=== PATIENT | male | born 1950 | race Caucasian/White ===

== ENCOUNTER 2020-03-15 00:13 | Outpatient (CLI) | payer MEDICARE, BC, SELFPAY ==
[2020-03-15 18:58] LABS: SARS-CoV-2 RNA PCR Negative
== END 2020-03-15 00:14 | disposition home or self-care (01) ==
LOC: ANHCOVIDDT 00:13
PROVIDERS: PCP Internal Medicine; Visit Provider Internal Medicine Cardiovascular Disease
DX: Z01.812 Encounter for preprocedural laboratory examination (principal); Z20.828 Contact with and (suspected) exposure to other viral communicable diseases
CPT/HCPCS: 87635; C9803; U0003

== ENCOUNTER 2020-03-17 05:33 | Day surgery (SDC) | payer MEDICARE, BC, SELFPAY ==
[2020-03-16 14:25] VITALS: BMI 29.9
[2020-03-17] VITALS (9 sets, daily range): BP systolic 111–140; BP diastolic 57–79; PULSE 55–71; RESP 14–15; O2SAT 94–100
[2020-03-17 07:52] LABS: Basophils Absolute Auto 0.1 K/mm3 (0.0-0.1); Basophils Percent Auto 0.8 % (0.2-1.2); Eosinophils Absolute Auto 0.5 K/mm3 (0-0.3); Eosinophils Percent Auto 6.7 % (0-4.4); Hematocrit 41.4 % (42.0-52.0); Hemoglobin 13.6 g/dL (14.0-18.0); Immature Granulocyte Absolute 0.02 K/mm3 (0.00-0.031); Immature Granulocyte Percent A 0.3 % (0-0.5); Lymphocytes Absolute Auto 2.37 K/mm3 (0.9-3.2); Lymphocytes Percent Auto 30.7 % (18.3-44.2); Mean Corpuscular HGB Conc 32.9 g/dl (32-36); Mean Corpuscular Hemoglobin 33.6 pg (26-34); Mean Corpuscular Volume 102.2 fl (80-100); Mean Platelet Volume 9.4 fl (7.4-10.4); Monocytes Absolute Auto 0.8 K/mm3 (0.1-0.6); Monocytes Percent Auto 10.9 % (2.6-8.5); Neutrophils Absolute Auto 3.9 K/mm3 (1.3-6.7); Neutrophils Percent Auto 50.6 % (45.5-73.1); Platelet Count Result 251 k/mm3 (150-375); Red Blood Count 4.05 M/mm3 (4.6-6.20); Red Cell Distribution Width 13.7 % (11.5-14.5); White Blood Count 7.7 K/mm3 (4.5-10.0)
[2020-03-17 08:02] LABS: Prothrombin Time 12.8 Seconds (11.1-14.7)
[2020-03-17 08:11] LABS: Blood Urea Nitrogen 20 mg/dL (9-20); Calcium 9.1 mg/dL (8.4-10.2); Carbon Dioxide 29 mmol/L (22-30); Chloride 102 mmol/L (98-107); Estimated CRCL calculation 60 ml/min; Estimated Glomerular Filt Rate > 60; Glucose 96 mg/dL (75-110); Potassium 4.1 mmol/L (3.4-5.0); Sodium 137 mmol/L (137-145)
--- NOTE | 2020-03-17 08:59 | WPDHPUPDATE1 ---
History and Physical Update Update Date/Time: 03/17/20 08:59 History and Physical has been reviewed, including an updated exam of the patient. There are NO changes in the patient's condition. Risks, benefits, and alternatives have been discussed and questions answered. Patient agrees to proceed with procedure.
--- NOTE | 2020-03-17 08:59 | WPDMODSED ---
Moderate Sedation Note-Pt Data Patient Data Allergies Allergy/AdvReac Type Severity Reaction Status Date / Time povidone-iodine Allergy Blister Verified 03/16/20 14:15 [From Betadine] soap [From Betadine] Allergy Blister Verified 03/16/20 14:15 Home Medications Medication Instructions Recorded Confirmed Type Pradaxa 150 mg PO BID 10/14/19 03/17/20 History amiodarone 200 mg PO DAILY 10/14/19 03/17/20 History aspirin 81 mg PO DAILY 10/14/19 03/17/20 History calcium carb and citrate-vitD3 1 tablet PO DAILY 10/14/19 03/17/20 History [Citracal-D3 Slow Release] cyanocobalamin (vitamin B-12) 500 mcg PO DAILY 10/14/19 03/17/20 History ferrous sulfate 325 mg PO BID 10/14/19 03/17/20 History finasteride 5 mg PO DAILY 10/14/19 03/17/20 History hydrocodone-acetaminophen [[place]] 1 tablet PO Q6H PRN 10/14/19 03/16/20 History metoprolol tartrate 25 mg PO Q12H 10/14/19 03/17/20 History multivitamin 1 tablet PO DAILY 10/14/19 03/17/20 History nystatin 1 applic TOPICAL PRN 10/14/19 03/17/20 History paroxetine HCl [Paxil] 40 mg PO QAM 10/14/19 03/17/20 History rosuvastatin [Crestor] 20 mg PO DAILY 10/14/19 03/17/20 History tamsulosin [Flomax] 0.4 mg PO BID 10/14/19 03/17/20 History midodrine 10 mg PO TID 03/17/20 03/17/20 History Current Medications: Active Medications Sodium Chloride (Normal Saline Iv) 500 mls @ 100 mls/hr IV CONT .Q5H ALE Sedation/Anesthesia: No previous sedation/anesthesia problems (including family history). [facility] Surgical History Surgical History (Updated 10/15/19 @ 09:25 by Italia Mclaughlin MD) Status post ablation of atrial fibrillation Social History Social History (Updated 10/15/19 @ 09:25 by Italia Mclaughlin MD) Social History: No smoking or drinking alcohol Smoking status: Never smoker Gender identity (if verbalized by the patient): Male Mod Sed Physical Exam Physical Exam Pre Procedural Exam: Normal: Appearance, Eyes, Ears, Nose, Neck, Throat, Airway, Lungs, Heart Size, Heart Rate, Heart Rhythm, Neuro Exam, Abdomen, Liver, Kidneys, Spleen, Breasts, Genitalia, Extremities and Skin Hours since solid foods: 8 Hours since liquid intake: 8 Internal Medicine - PN: Obj Da Vital Signs Vital Signs: Vital Signs - 24 hr 03/17/20 07:42 Pulse Rate 55 L Respiratory Rate 14 Blood Pressure 140/70 Pulse Oximetry 94 Meds/Results Medications: Active Medications Generic Name Dose Route Start Last Admin Trade Name Freq PRN Reason Stop Dose Admin Sodium Chloride 500 mls @ 100 mls/hr 03/17/20 06:00 Normal Saline Iv IV CONT .Q5H ALE Labs CBC & Chem 7: 03/17/20 07:45 03/17/20 07:45 Labs: Laboratory Results - last 24 hr 03/17/20 03/17/20 03/17/20 07:45 07:45 07:45 WBC 7.7 RBC 4.05 L Hgb 13.6 L Hct 41.4 L MCV 102.2 H MCH 33.6 MCHC 32.9 RDW 13.7 Plt Count 251 MPV 9.4 Immature Gran % (Auto) 0.3 Neut % (Auto) 50.6 Lymph % (Auto) 30.7 [place] % (Auto) 10.9 H Eos % (Auto) 6.7 H Baso % (Auto) 0.8 Lymph # (Auto) 2.37 [place] # (Auto) 0.8 H Eos # (Auto) 0.5 H Baso # (Auto) 0.1 Abs Immat Gran (auto) 0.02 Absolute Neuts (auto) 3.9 Absolute Nucleated RBC 0.0 Nucleated RBC % 0.0 PT 12.8 INR 1.0 Sodium 137 Potassium 4.1 Chloride 102 Carbon Dioxide 29 BUN 20 Creatinine 1.10 Estim Creat Clear Calc 60 Estimated GFR > 60 Glucose 96 Calcium 9.1 ASA Classification/Sedation ASA Classification/Sedation ASA Class: I Emergent: No Risks: Risks, benefits and alternatives explained and patient/family accepted plan for sedation. Patient re-evaluated immediately prior to sedation.
--- NOTE | 2020-03-17 09:00 | WPDCARDPROC ---
Cardiac Cath Procedure Note Date of procedure:: 03/17/20 Performing physician:: Italia Mclaughlin MD Date of service: 03/17/2020 Indication:: Dyspnea on exertion. abn stress test Brief clinical history:: Is 68 patient history paroxysmal atrial fibrillation, history of LAD stent and RCA stent 2005 was evaluated for worseningdyspnea on exertion. stress test shows inferior and inferolateral ischemia and ejection fraction 45% TID 1.24 Procedure Procedure performed:: 1-Moderate sedation that started at 0906 am and ended at 0929 am using 3mg of Versed and 75mcg fentanyl. The registered nurse was ciara price 2-Selective left and right coronary angiogram. 3-Left heart catheterization with measurement of LVEDP and measurement of gradient across aortic valve. 4-Right common femoral arterial angiogram. 5-Deployment of 6 [place] Angio-Seal. Sedation/Medication given:: Moderate sedation. Access site:: Right common femoral artery. Estimated blood loss:: 10cc Procedure note:: After informed consent patient was brought in to [facility] with the was draped and prepped in usual manner. Moderate sedation was given and the right groin was infiltrated using 1% lidocaine. Five [place] sheath was obtained using micropuncture needle and the modified Seldinger technique. Selective left coronary angiogram was done using JL4 catheter with the tip of the catheter placed in the left main coronary artery. Selective right coronary angiogram was done using JR4 catheter with the tip of the catheter placed to the right coronary artery. After that 5 [place] pigtail catheter was advanced across the aortic valve into the left ventricle with measurement of LVEDP and measurement of gradient across aortic valve. Right common femoral arterial angiogram was done. Findings:: 1- left coronary artery is a large artery that divides into large LAD, large circumflex artery. Distal Left main has 20% stenosis with calcification. 2- left anterior descending artery is a large artery that runs and wraps around the apex. has a patent stent proximally without significant AV stenosis and then after the diagonal branch there is minimal irregularities about 20%. Diagonal branch is small to medium in size and looks unremarkable. 3- left circumflex artery is a large artery and with minimal irregularities. Right after takes off from the left main, the left circumflex artery arises to a large OM1 branch that looks unremarkable. 4- right coronary artery is large artery and dominant. has patent stent proximally with minimal InStent restenosis. after that the right coronary artery has diffuse calcification throughout the blood vessel. distally gives rise to large PDA and right posterolateral branch that both looked unremarkable 5- LVEDP was 10 mm Hgand no gradient across aortic valve. 6- opening arterial pressure was 114/80and closing pressure was 120/70. 7- right femoral artery angiogram shows no significant disease in the right common femoral artery. Conclusion:: patent stents proximal LAD and proximal right coronary artery. distal left main 20%. Assessment and Plan Additional Plan continue risk factor modification for CAD.
--- NOTE | 2020-03-17 11:54 | SUR.PHASEII ---
1130-pt up to the restroom after two hours of bedrest. Groin soft and non-tender, no evidence of bleeding or hematoma noted. Strong right pedal pulse noted. Both groin and pulse checked before and after rising. No distress noted. Will continue to monitor.
--- NOTE | 2020-03-17 11:55 | SUR.PHASEII ---
0930-pt into [facility] after CCL. No distress noted. AOx4. Groin soft and non-tender, no evidence of bleeding or hematoma noted. Strong right pedal pulse noted. Will continue to monitor.
--- NOTE | 2020-03-17 13:01 | SUR.PHASEII ---
1235-pt given D/C orders and instructions. Questions answered and verbalized understanding. AOx4. PIV removed intact. Groin soft and non-tender, no evidence of bleeding or hematoma noted. Strong right pedal pulse noted. Taken via wheelchair to waiting vehicle. No distress noted or verbalized at time of departure.
== END 2020-03-17 12:34 | disposition home or self-care (01) ==
PROVIDERS: PCP Internal Medicine; Visit Provider Internal Medicine Cardiovascular Disease
PROC: 4A023N7 Measurement of Cardiac Sampling and Pressure, Left Heart, Percutaneous Approach (ICD-10-PCS; CPT 93452; principal; 2020-03-17 08:30)
DX: I25.10 Atherosclerotic heart disease of native coronary artery without angina pectoris (principal); T82.855A Stenosis of coronary artery stent, initial encounter; X58.XXXA Exposure to other specified factors, initial encounter
CPT/HCPCS: 36415; 80048; 85025; 85610; 93458; C1760; C1887; C1894; G0269; J1644; J2250; J3010; J7040

== ENCOUNTER 2020-04-22 13:25 | Outpatient (CLI) | payer MEDICARE, BC, SELFPAY ==
--- NOTE | 2020-04-25 09:48 | WPDPFTINT ---
PFT Interpretation PFT Interpretation: DOS: 04/22/2020 REQUESTING: Dr. Italia Mclaughlin REASON FOR TESTING: Shortness of breath PULMONARY FUNCTION TESTS Results are reproducible and reliable. Spirometry: FEV1 96%, FVC 103%, normal. FEV1% is decreased at 62%. DLJ36-46% is decreased at 53%. No bronchodilator was given. Lung volumes: TLC increased 131% consistent with mild hyperinflation. RV increased 162% consistent with severe air trapping. Airway resistance 138%, increased. Diffusion: DLCO 98%, normal. Flow volume loop: Coving of the expiratory limb consistent with airflow obstruction. IMPRESSION: Mild obstructive ventilatory impairment which is marked in the small airways, mild hyperinflation and severe air trapping. Normal diffusion. No bronchodilator was given. This pattern suggests COPD-asthma overlap. Patricia Antunez MD
== END 2020-04-22 13:26 | disposition home or self-care (01) ==
PROVIDERS: PCP Internal Medicine; Visit Provider Internal Medicine Cardiovascular Disease
DX: R06.02 Shortness of breath (principal); R94.2 Abnormal results of pulmonary function studies
CPT/HCPCS: 94060; 94726; 94729

== ENCOUNTER 2020-09-19 02:25 | Outpatient (CLI) | payer MEDICARE, BC, SELFPAY ==
[2020-09-19 18:35] LABS: SARS-CoV-2 RNA PCR Negative
== END 2020-09-19 02:26 | disposition home or self-care (01) ==
LOC: ANHCOVIDDT 02:26
PROVIDERS: PCP Internal Medicine; Visit Provider Internal Medicine Cardiovascular Disease
DX: Z01.812 Encounter for preprocedural laboratory examination (principal); Z20.828 Contact with and (suspected) exposure to other viral communicable diseases
CPT/HCPCS: 87635; C9803; U0003

== ENCOUNTER 2020-09-22 05:24 | Day surgery (SDC) | payer MEDICARE, BC, SELFPAY ==
[2020-09-22] VITALS (9 sets, daily range): BP systolic 100–119; BP diastolic 64–78; PULSE 67–74; RESP 12–20; TEMP 36.6–36.7; O2SAT 96–100; BMI 29.0
--- NOTE | 2020-09-22 | ECG_ITS ---
Measurements Intervals [place] Rate: 68 P: [place]: 0 QRS: 61 QRSD: 109 T: 36 QT: 438 QTc: 468 Interpretive Statements ATRIAL FLUTTER/TACHYCARDIA ABNORMAL ECG Electronically Signed On 09-22-2020 11:11:05 [employer] WORKER by Moreno PENA
[2020-09-22 10:17] LABS: Anion Gap 2 mmol/L (8-16); Blood Urea Nitrogen 19 mg/dL (9-20); Calcium 8.9 mg/dL (8.4-10.2); Carbon Dioxide 32 mmol/L (22-30); Chloride 102 mmol/L (98-107); Estimated CRCL calculation 65 ml/min; Estimated Glomerular Filt Rate > 60; Glucose 98 mg/dL (75-110); Magnesium 1.9 mg/dL (1.6-2.3); Potassium 4.1 mmol/L (3.4-5.0); Sodium 136 mmol/L (137-145)
--- NOTE | 2020-09-22 11:01 | ECG_ITS ---
Measurements Intervals [place] Rate: 68 P: 76 NC: 160 QRS: 57 QRSD: 106 T: 35 QT: 455 QTc: 484 Interpretive Statements SINUS RHYTHM PROLONGED QT INTERVAL ABNORMAL ECG Electronically Signed On 09-22-2020 14:02:51 [employer] by Moreno Pitts D.O.
--- NOTE | 2020-09-22 11:50 | WPDHPUPDATE1 ---
History and Physical Update Update Date/Time: 09/22/20 11:50 History and Physical has been reviewed, including an updated exam of the patient. There are NO changes in the patient's condition. Risks, benefits, and alternatives have been discussed and questions answered. Patient agrees to proceed with procedure.
--- NOTE | 2020-09-22 11:51 | WPDCARDVER ---
Cardioversion Cardioversion Date of procedure: 09/22/20 Procedure: date of service 09/22/2020 cardioversion of atrial fibrillation Pre-op diagnosis: symptomatic atrial fibrillation Post-op diagnosis: other ( converted to sinus rhythm) Indications: patient experiences shortness of breath and fatigue with atrial fibrillation Description of procedure: after informed consent , the cardioversion paddles were applied anteroposteriorly. the moderate sedation given and then after that synchronized electric cardioversion using 200 joules delivered successfully converting to sinus rhythm. Sedation: Moderate sedation that started at 10:48 a.m. and ended at 10:54 a.m. total duration 6 minutes using 4 mg of Versed and 50 mcg of fentanyl. The Registered nurse was gilmer guajardo Findings: atrial fibrillation converted to sinus rhythm Conclusion: successful cardioversion. continue amiodarone and Pradaxa
--- NOTE | 2020-09-22 12:21 | SUR.PHASEII ---
1225 Reviewed D/C instructions with patient, questions answered, he verbalizes understanding. IV D/C'd, cath intact, pressure applied. Pts updated via phone call. Pt transported via wheelchair to [facility] where his drove him home in a private vehicle.
--- NOTE | 2020-11-03 11:19 | PM.IMHP ---
H&P: HPI History of Present Illness Date/Time: date of service 09/22/2020 Chief Complaint: shortness of breath on exertion Narrative: Mayo Wyatt is a 70 year old male with past medical history of coronary artery disease and stents, paroxysmal atrial fibrillation status post ablation, C diff, who had COVID infection in August 2020 and went into atrial fibrillation. He does not tolerate atrial fibrillation and has been experiencing shortness of breath, fatigability. Denies chest pain, dizziness, syncope, lower limb edema. He was started on amiodarone and was set up to undergo cardioversion for symptomatic management. Review of Systems Review of Systems: All systems reviewed & are unremarkable except as noted in HPI and below Constitutional: Constitutional: Denies chills, Reports fatigue, Denies fever(s), Denies headache(s) and Denies snoring Eyes: Eyes: Denies eye discharge and Denies loss of vision ENT: Denies dizziness, Denies headache(s), Denies nasal discharge and Denies sore throat Cardiovascular: Cardiovascular: Reports as per HPI, Denies chest pain, Denies syncope, Denies rapid heart rate, Denies leg edema, Reports dyspnea, Reports dyspnea on exertion, Denies orthopnea and Denies paroxysmal nocturnal dyspnea Respiratory: Respiratory: Denies chest congestion, Denies cough, Reports dyspnea, Reports dyspnea on exertion, Denies snoring and Denies wheezing Gastrointestinal: Gastrointestinal: Denies abdominal pain, Denies diarrhea, Denies nausea and Denies vomiting Genitourinary: Genitourinary: Denies hematuria, Denies dysuria, Denies flank pain and Denies urinary frequency Musculoskeletal: Musculoskeletal: Denies myalgias, Denies arthralgias and Denies joint swelling Neurologic: Denies Abnormal speech present, Denies dizziness, Denies syncope, Denies headache(s), Denies focal weakness and Denies loss of vision Psychiatric: Psychiatric: Denies anxiety and Denies depression Endocrine: Endocrine: Denies cold intolerance, Denies fatigue and Denies heat intolerance Hematologic/Lymphatic: Hematologic/Lymphatic: Denies easy bleeding and Denies easy bruising Allergic/Immunologic: Allergic/Immunologic: Denies urticaria and Denies wheezing PMFSH Past Medical History Medical History Atrial fibrillation C. difficile colitis Surgical History Surgical History Status post ablation of atrial fibrillation Social History Social History Social History: No smoking or drinking alcohol Smoking status: Never smoker Gender identity (if verbalized by the patient): Male Meds Home Medications and Allergies Home Medications Medication Instructions Recorded Confirmed Type Pradaxa 150 mg PO BID 10/14/19 09/22/20 History amiodarone 200 mg PO DAILY 10/14/19 09/22/20 History aspirin 81 mg PO DAILY 10/14/19 09/22/20 History calcium carb and citrate-vitD3 1 tablet PO DAILY 10/14/19 09/22/20 History [Citracal-D3 Slow Release] cyanocobalamin (vitamin B-12) 500 mcg PO DAILY 10/14/19 09/22/20 History ferrous sulfate 325 mg PO BID 10/14/19 09/22/20 History finasteride 5 mg PO DAILY 10/14/19 09/22/20 History hydrocodone-acetaminophen [[place]] 1 tablet PO Q6H PRN 10/14/19 09/22/20 History metoprolol tartrate 25 mg PO BID 10/14/19 09/22/20 History multivitamin 1 tablet PO DAILY 10/14/19 09/22/20 History paroxetine HCl [Paxil] 40 mg PO QAM 10/14/19 09/22/20 History rosuvastatin [Crestor] 20 mg PO DAILY 10/14/19 09/22/20 History tamsulosin [Flomax] 0.4 mg PO BID 10/14/19 09/22/20 History midodrine 10 mg PO TID 03/17/20 09/22/20 History Allergies Allergy/AdvReac Type Severity Reaction Status Date / Time levofloxacin Allergy Rash Verified 09/22/20 10:02 povidone-iodine Allergy Blister Verified 09/22/20 10:02 [From Betadine] soap [From Betadine] Allergy Blister Verif
== END 2020-09-22 12:29 | disposition home or self-care (01) ==
PROVIDERS: PCP Internal Medicine; Visit Provider Internal Medicine Cardiovascular Disease
PROC: 5A2204Z Restoration of Cardiac Rhythm, Single (ICD-10-PCS; principal; 2020-09-22 10:00)
DX: I48.91 Unspecified atrial fibrillation (principal)
CPT/HCPCS: 36415; 80048; 83735; 92960; J2250; J3010; J7040

== ENCOUNTER 2021-06-21 10:08 | Outpatient (CLI) | payer MEDICARE, BC, SELFPAY ==
--- NOTE | 2021-06-21 12:28 | WPDPFTINT ---
PFT Procedure Performed PFT Procedure Performed Plethysmography (Lung Vol) Diffusing Cap (DLCO) Flow Vol Loop Spirometry w/o Bronchodil PFT Interpretation This is a pulmonary function test with spirometry, plethysmography and diffusing capacity. The test was performed and results interpreted in accordance with the 2019 and 2005 ATS/ERS Task Force guidelines respectively using the Global Lung Function Initiative-2012 reference equations. Patient demonstrated good effort and cooperation. Reproducibility criteria were met. The quality of the spirometry maneuver was Grade A. Findings: Spirometry: There is decreased maximal expiratory airflow at low lung volumes with concave expiratory flow tracing. The contour the inspiratory flow tracing is normal. The FVC is 4.36 L, 95% predicted. The FEV1 is 2.81 L, 92% predicted. The FEV1: FVC ratio 64%. Plethysmography: The total lung capacity is 7.45 L, 107% predicted. The functional residual capacity is 4.33 L, 113% predicted. The residual volume is 3.08 L, 114% predicted. Diffusing capacity: The absolute diffusion capacity is 19.5, 84% predicted. The diffusing capacity corrected for alveolar volume is 2.98, 85% predicted. Impression: There is a mild obstructive abnormality with a normal FEV1. The lung volumes are normal. The diffusing capacity is normal. There are no prior studies for comparison
== END 2021-06-21 10:09 | disposition home or self-care (01) ==
PROVIDERS: PCP Internal Medicine; Visit Provider Nurse Practitioner Adult Health
DX: Z79.899 Other long term (current) drug therapy (principal); R94.2 Abnormal results of pulmonary function studies
CPT/HCPCS: 94375; 94726; 94729

== ENCOUNTER 2021-06-22 00:52 | Day surgery (SDC) | payer MEDICARE, BC, SELFPAY ==
[2021-06-21 16:08] VITALS: BMI 28.5
[2021-06-22] VITALS (9 sets, daily range): BP systolic 99–141; BP diastolic 59–91; PULSE 58–98; RESP 12–20; TEMP 36.1; O2SAT 95–100; BMI 28.8
--- NOTE | 2021-06-22 08:30 | ECG_ITS ---
Measurements Intervals [place] Rate: 62 P: 74 [place]: 157 QRS: 74 QRSD: 105 T: 22 QT: 427 QTc: 436 Interpretive Statements SINUS RHYTHM BASELINE WANDER- II, III, V3-V6 NORMAL ECG Electronically Signed On 06-22-2021 10:30:35 CDT by Moreno Pitts D.O.
--- NOTE | 2021-06-22 10:00 | WPDHPUPDATE1 ---
History and Physical Update Update Date/Time: 06/22/21 10:00 History and Physical has been reviewed, including an updated exam of the patient. There are NO changes in the patient's condition. Risks, benefits, and alternatives have been discussed and questions answered. Patient agrees to proceed with procedure.
--- NOTE | 2021-06-22 10:00 | WPDMODSED ---
Moderate Sedation Note-Pt Data Patient Data Allergies Allergy/AdvReac Type Severity Reaction Status Date / Time levofloxacin Allergy Rash Verified 06/21/21 16:04 povidone-iodine Allergy Blister Verified 06/21/21 16:04 [From Betadine] soap [From Betadine] Allergy Blister Verified 06/21/21 16:04 Home Medications Medication Instructions Recorded Confirmed Type Pradaxa 150 mg PO BID 10/14/19 06/22/21 History amiodarone 200 mg PO DAILY 10/14/19 06/22/21 History aspirin 81 mg PO DAILY 10/14/19 06/22/21 History cyanocobalamin (vitamin B-12) 500 mcg PO DAILY 10/14/19 06/22/21 History ferrous sulfate 325 mg PO BID 10/14/19 06/22/21 History finasteride 5 mg PO DAILY 10/14/19 06/22/21 History hydrocodone-acetaminophen [[place]] 1 tablet PO Q6-8H PRN 10/14/19 06/22/21 History metoprolol tartrate 25 mg PO BID 10/14/19 06/22/21 History paroxetine HCl [Paxil] 40 mg PO QAM 10/14/19 06/22/21 History rosuvastatin [Crestor] 20 mg PO EVERY OTHER DAY 10/14/19 06/22/21 History tamsulosin [Flomax] 0.8 mg PO BID 10/14/19 06/22/21 History midodrine 10 mg PO BID 03/17/20 06/22/21 History cholestyramine (with sugar) 4 g PO DAILY 06/22/21 06/22/21 History [Questran] furosemide [Lasix] 20 mg PO DAILY 06/22/21 06/22/21 History lactobacillus combination no.4 1 cell PO HS 06/22/21 06/22/21 History [Probiotic] metoclopramide HCl [Reglan] 10 mg PO Q6H PRN 06/22/21 06/22/21 History ondansetron HCl [Zofran] 4 mg PO Q8H PRN 06/22/21 06/22/21 History sennosides [Senna Laxative] 8.6 mg PO DAILY PRN 06/22/21 06/22/21 History Current Medications: Active Medications Sodium Chloride (Normal Saline Iv) 1,000 mls @ 30 mls/hr IV CONT .Q24H [facility] Sedation/Anesthesia: No previous sedation/anesthesia problems (including family history). [facility] Past Medical History Medical History Atrial fibrillation C. difficile colitis Surgical History Surgical History Status post ablation of atrial fibrillation Social History Social History Social History: No smoking or drinking alcohol Smoking status: Never smoker Gender identity (if verbalized by the patient): Male Sexual Orientation (if Verbalized by the Patient): Straight or Heterosexual Mod Sed Physical Exam Physical Exam Pre Procedural Exam: Normal: Appearance, Eyes, Ears, Nose, Neck, Throat, Airway, Lungs, Heart Size, Heart Rate, Heart Rhythm, Neuro Exam, Abdomen, Liver, Kidneys, Spleen, Breasts, Genitalia, Extremities and Skin Hours since solid foods: 8 Hours since liquid intake: 8 Mallampati Classification: class 1 Internal Medicine - PN: Obj Da Vital Signs Vital Signs: Vital Signs - 24 hr 06/22/21 10:10 06/22/21 10:15 06/22/21 10:20 Temperature 36.1 C L Pulse Rate 93 98 85 Respiratory Rate 16 18 12 Blood Pressure 141/91 H 127/81 120/80 Pulse Oximetry 98 100 100 06/22/21 10:25 06/22/21 10:30 Temperature Pulse Rate 58 L 67 Respiratory Rate 12 12 Blood Pressure 103/70 99/62 L Pulse Oximetry 100 100 Meds/Results Medications: Active Medications Generic Name Dose Route Start Last Admin Trade Name Freq PRN Reason Stop Dose Admin Sodium Chloride 1,000 mls @ 30 mls/hr 06/21/21 15:55 Normal Saline Iv IV CONT .Q24H ALE Labs CBC & Chem 7: 06/22/21 10:10 ASA Classification/Sedation ASA Classification/Sedation ASA Class: I Emergent: No Risks: Risks, benefits and alternatives explained and patient/family accepted plan for sedation. Patient re-evaluated immediately prior to sedation.
[2021-06-22 10:35] LABS: Anion Gap 10 mmol/L (8-16); Blood Urea Nitrogen 15 mg/dL (9-20); Calcium 9.6 mg/dL (8.4-10.2); Carbon Dioxide 27 mmol/L (22-30); Chloride 102 mmol/L (98-107); Estimated CRCL calculation 65 ml/min; Estimated Glomerular Filt Rate > 60; Glucose 97 mg/dL (65-110); Magnesium 1.7 mg/dL (1.6-2.3); Potassium 4.2 mmol/L (3.4-5.0); Sodium 139 mmol/L (137-145)
--- NOTE | 2021-06-22 10:35 | WPDCARDVER ---
Cardioversion Cardioversion Date of procedure: 06/22/21 Procedure: Date of procedure June 22, 2021 1-sedation that started at 10:17 a.m. and ended at 10:25 a.m. using 5 mg Versed and 75 mcg fentanyl. The registered nurse was Vy Castillo. 2-electric cardioversion of atrial flutter into sinus rhythm. Pre-op diagnosis: Atrial flutter Post-op diagnosis: other (Sinus rhythm) Indications: Symptomatic atrial flutter with shortness of breath and fatigue. Description of procedure: Patient was brought into the holding area of the director of cardiac cath lab. We confirmed that the patient was compliant with taking the anticoagulation without interruption. We also confirmed that the patient was taking amiodarone. Last time he had to eat or drink anything was more than 8 hours ago. He does not have dentures were loose teeth. After that the cardioversion pads were applied in anteroposterior fashion. Moderate sedation was administered and then after that synchronized cardioversion 200 joules was administered and successfully converted patient from flutter to sinus rhythm. EKG confirms sinus rhythm. Sedation: Moderate sedation that started at 10:17 a.m. and ended at 10:25 a.m. using 5 mg of Versed and 75 micro g of fentanyl. The registered nurse was vy castillo. Findings: Atrial flutter converted to sinus rhythm and confirmed by EKG. The QTC interval was 433 milliseconds. Conclusion: Successful cardioversion
--- NOTE | 2021-06-22 10:45 | ECG_ITS ---
Measurements Intervals [place] Rate: 101 P: [place]: 0 QRS: 77 QRSD: 114 T: -3 QT: 360 QTc: 469 Interpretive Statements ATRIAL FLUTTER/TACHYCARDIA WITH RAPID VENTRICULAR RESPONSE MINIMAL Q WAVES- INFERIOR LEADS ABNORMAL ECG Electronically Signed On 06-22-2021 10:14:14 CDT by Moreno Pitts D.O.
--- NOTE | 2021-06-22 11:47 | SUR.PHASEII ---
Discharge instructions provided and reviewed with patient. Patient verbalizes understanding with no questions at this time. Patient instructed to notify HCG office for any concerns post procedure. PIV removed intact and dressing applied. Patient ambulated at discharge and was escorted to front of hospital by staff, where he was picked up by his .
== END 2021-06-22 11:50 | disposition home or self-care (01) ==
PROVIDERS: PCP Internal Medicine; Visit Provider Internal Medicine Cardiovascular Disease
PROC: 5A2204Z Restoration of Cardiac Rhythm, Single (ICD-10-PCS; principal; 2021-06-22 10:30)
DX: I48.92 Unspecified atrial flutter (principal); I25.10 Atherosclerotic heart disease of native coronary artery without angina pectoris; I25.2 Old myocardial infarction; Z95.5 Presence of coronary angioplasty implant and graft; R06.09 Other forms of dyspnea; E78.2 Mixed hyperlipidemia; Z79.01 Long term (current) use of anticoagulants; Z79.82 Long term (current) use of aspirin
CPT/HCPCS: 36415; 80048; 83735; 92960; J2250; J3010; J7040

== ENCOUNTER 2023-12-19 01:30 | Day surgery (SDC) | payer MEDICARE, SELFPAY ==
[2023-12-18 15:54] VITALS: BMI 33.2
--- NOTE | 2023-12-19 08:30 | ECG_ITS ---
Measurements Intervals [place] Rate: 77 P: 84 [place]: 103 QRS: 46 QRSD: 109 T: 3 QT: 397 QTc: 450 Interpretive Statements SINUS RHYTHM WITH SHORT HI INTERVAL BASELINE WANDER- I, III BORDERLINE ECG COMPARED TO ECG 12/19/2023 08:59:39 SINUS RHYTHM NOW PRESENT Electronically Signed On 12-19-2023 10:42:50 CDT by Moreno Pitts D.O.
--- NOTE | 2023-12-19 08:30 | ECG_ITS ---
Measurements Intervals [place] Rate: 97 P: ID: 0 QRS: 64 QRSD: 109 T: -6 QT: 387 QTc: 492 Interpretive Statements ATRIAL FIBRILLATION MINIMAL Q WAVES- INFERIOR LEADS ABNORMAL ECG COMPARED TO ECG 06/22/2021 10:27:54 ATRIAL FIBRILLATION NOW PRESENT Electronically Signed On 12-19-2023 9:36:24 CDT by Moreno Pitts D.O.
[2023-12-19 09:25] VITALS: BMI 33.2
[2023-12-19 09:27] VITALS: BP 105/73; PULSE 86; RESP 16; TEMP 36.4; O2SAT 98
[2023-12-19 09:30] LABS: Anion Gap 6 mmol/L (8-16); Blood Urea Nitrogen 15 mg/dL (9-20); Calcium 9.6 mg/dL (8.4-10.2); Carbon Dioxide 27 mmol/L (22-30); Chloride 105 mmol/L (98-107); Estimated CRCL calculation 66 ml/min; Estimated Glomerular Filt Rate > 60; Glucose 111 mg/dL (65-110); Magnesium 2.1 mg/dL (1.6-2.3); Sodium 138 mmol/L (137-145)
[2023-12-19] MEDS: SODIUM CHLORIDE 0.9% IV 1,000 ML 30 ML IV CONT (09:50)
[2023-12-19 10:00] VITALS: BP 106/74; PULSE 78; RESP 14; O2SAT 97
[2023-12-19 10:15] VITALS: BP 117/76; PULSE 78; RESP 16; O2SAT 97
--- NOTE | 2023-12-19 10:33 | WPDHPUPDATE1 ---
History and Physical Update Update Date/Time: 12/19/23 10:33 History and Physical has been reviewed, including an updated exam of the patient. There are NO changes in the patient's condition. Risks, benefits, and alternatives have been discussed and questions answered. Patient agrees to proceed with procedure.
--- NOTE | 2023-12-19 10:33 | PM.EVENT ---
Event Note Event Note Event Note: Cardioversion canceled as patient in sinus rhythm prior to procedure.
== END 2023-12-19 10:50 | disposition home or self-care (01) ==
PROVIDERS: PCP Internal Medicine; Visit Provider Internal Medicine
PROC: 5A2204Z Restoration of Cardiac Rhythm, Single (ICD-10-PCS; principal; 2023-12-19 10:00)
DX: I48.91 Unspecified atrial fibrillation (principal); Z53.8 Procedure and treatment not carried out for other reasons
CPT/HCPCS: 36415; 80048; 83735; 99214; G0463; J2704; J7030

== ENCOUNTER 2024-07-10 09:58 | Emergency (ER) | payer MEDICARE, SELFPAY ==
--- NOTE | ~2024-07-10 | XR_ITS ---
EXAMINATION: [id number] DATE: 07/10/2024 10:59 INDICATION: Left rib pain post fall TECHNIQUE: A frontal inspiratory view of the chest and 3 views of the left ribs were obtained. COMPARISON: None FINDINGS: Fractures of the posterolateral left seventh and eighth ribs, the former minimally displaced and with one half rib with displacement of the latter. Underlying focal subpleural thickening likely represen ting associated small chest wall hematoma. Minimal linear discoid atelectasis at the bilateral lung b ases. Mild blunting at the right costophrenic but not the cardiophrenic angle equivocal for very smal l right pleural effusion versus pleural parenchymal scarring. No pneumothorax or left-sided pleural e ffusion. Heart size is normal. Mild thoracolumbar levocurvature with moderate thoracic spondylosis. P artially visualized right reverse total shoulder arthroplasty. Status post distal left clavicle resec tion. 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 There are also surgical clips left upper quadrant. IMPRESSION: 1. Acute posterolateral left seventh and eighth rib fractures. No pneumothorax. 2. Mild linear discoid atelectasis/scarring at the bilateral lung bases with possible very small righ t pleural effusion. Reviewed, dictated and finalized at location A. IMPRESSION: 1. Acute posterolateral left seventh and eighth rib fractures. No pneumothorax. 2. Mild linear discoid atelectasis/scarring at the bilateral lung bases with po ssible very small right pleural effusion.
[2024-07-10 10:05] VITALS: BP 124/70; PULSE 76; RESP 18; TEMP 36.3; O2SAT 96
[2024-07-10 10:15] VITALS: BP 124/70; PULSE 76; RESP 18; TEMP 36.3; O2SAT 96
--- NOTE | 2024-07-10 10:28 | ED.FALL ---
HPI - Fall General Chief Complaint: Fall Stated Complaint: Fall Injury/Left Side Pain Time Seen by Provider: 07/10/24 10:28 Source: patient Mode of arrival: ambulatory Limitations: no limitations History of Present Illness HPI Narrative: 73-year-old male presented for complaint of left posterior rib pain after fall yesterday. He states while on a deck he slipped on a loose board causing him to fall through. He states one leg fell through the hole, while the other remained on the deck. Endorses scrapes to both elbows and right lower leg. Reports breathing is difficult due to pain, worsening today. Endorses fatigue and states he felt dizzy last night with lower blood pressure. Denies chest pain, wheezing, hemoptysis, n/v/d/f/c. Related Data Home Medications Medication Instructions Recorded Confirmed amiodarone 400 mg tablet 200 mg PO DAILY 10/14/19 07/10/24 aspirin 81 mg chewable tablet 81 mg PO DAILY 10/14/19 07/10/24 cyanocobalamin (vitamin B-12) 500 500 mcg PO QMWF 10/14/19 07/10/24 mcg tablet ferrous sulfate 325 mg (65 mg 325 mg PO DAILY 10/14/19 07/10/24 iron) tablet,delayed release finasteride 5 mg tablet 5 mg PO DAILY 10/14/19 07/10/24 hydrocodone 10 mg-acetaminophen 1 tablet PO Q6-8H PRN Pain 10/14/19 07/10/24 325 mg tablet ([place]) paroxetine HCl 40 mg tablet (Paxil) 40 mg PO QAM 10/14/19 07/10/24 rosuvastatin 40 mg tablet (Crestor) 40 mg PO 2XW 10/14/19 07/10/24 midodrine 10 mg tablet 10 mg PO TID PRN low blood pressure 03/17/20 07/10/24 furosemide 20 mg tablet (Lasix) 20 mg PO DAILY 06/22/21 07/10/24 ondansetron HCl 4 mg tablet 4 mg PO Q8H PRN Nausea 06/22/21 07/10/24 (Zofran) allopurinol 100 mg tablet 100 mg PO DAILY 12/18/23 07/10/24 calcium 315 mg (as 2 tablet PO BID 12/18/23 07/10/24 citrate)-vitamin D3 5 mcg (200 unit) tablet (Calcium Citrate + D) ezetimibe 10 mg tablet 10 mg PO DAILY 12/18/23 07/10/24 levothyroxine 75 mcg tablet 75 mcg PO DAILY 12/18/23 07/10/24 metoprolol succinate 100 mg 100 mg PO DAILY 12/18/23 07/10/24 tablet,extended release 24 hr multivitamin-iron (hematinic) 1 tablet PO DAILY 12/18/23 07/10/24 silodosin 8 mg capsule 8 mg PO DAILY 12/18/23 07/10/24 famotidine 40 mg tablet 40 mg DIRECTED 07/10/24 07/10/24 Allergies Allergy/AdvReac Type Severity Reaction Status Date / Time povidone-iodine Allergy Blister Verified 12/19/23 09:04 [From Betadine] levofloxacin AdvReac Other Verified 12/19/23 09:04 Review of Systems Review of Systems: CONSTITUTIONAL: Denies body aches, fever, chills, or sweats. CARDIOVASCULAR: Denies chest pain, palpitations, or edema. RESPIRATORY: Denies cough or dyspnea. GASTROINTESTINAL: Denies abdominal pain, nausea, vomiting, or diarrhea. GENITOURINARY: Denies hematuria. SKIN: reports abrasions to elbows, Right leg, left back MUSCULOSKELETAL: reports left mid back pain NEUROLOGIC: Denies headache, numbness, tingling, or weakness. All systems reviewed & are unremarkable except as noted in HPI and below PMFSH Past Medical History Medical History Atrial fibrillation C. difficile colitis Surgical History Surgical History Status post ablation of atrial fibrillation Social History Social History Social History: No smoking or drinking alcohol Smoking packs per day: 2 Smoking cigarettes per day: 40.0 Years smoked: 33 Smoking pack-years: 66.00 Smoking status: Former smoker Tobacco type: cigarettes Second hand tobacco smoke exposure: Yes Smoking end date: 10/07/95 Alcohol use details: 2 bottles wine/month or occ beer Substance use: never Living arrangements: with family Gender identity (if verbalized by the patient): Male Sexual Orientation (if Verbalized by the Patient): Straight or Heterosexual Spiritual care concerns: No Commen
== END 2024-07-10 12:25 | disposition home or self-care (01) ==
PROVIDERS: Emergency Provider Nurse Practitioner Family; PCP Internal Medicine
DX: S22.42XA Multiple fractures of ribs, left side, initial encounter for closed fracture (principal); W13.8XXA Fall from, out of or through other building or structure, initial encounter; I48.91 Unspecified atrial fibrillation; Z86.19 Personal history of other infectious and parasitic diseases; Z87.891 Personal history of nicotine dependence; Z79.82 Long term (current) use of aspirin
CPT/HCPCS: 71101; 99213; G0463

== ENCOUNTER 2025-04-26 12:04 | Emergency (ER) | payer MEDICARE, SELFPAY ==
--- NOTE | ~2025-04-26 | XR_ITS ---
XR chest 2V 04/26/2025 12:43 Indication: Cough for 6 days. History of smoking. Procedure: 2 view chest Comparison: No prior studies for comparison. Findings: There are pleural-based densities left mid and lower thorax. Heart size normal. Pacemaker l bry in expected position. Right shoulder arthroplasty present. No focal airspace disease. No signifi cant effusion or pneumothorax. Impression: 1: Lobulated pleural-based densities left mid and lower thorax. Follow-up CT chest with contrast jack mmended to exclude underlying mass. Reviewed, dictated and finalized at location A. Impression: 1: Lobulated pleural-based densities left mid and lower thorax. Follow-up CT ch est with contrast recommended to exclude underlying mass.
--- OUTSIDE RECORDS SUMMARY | 2025-04-26 12:06 | XMS_ITS | Encounter Summary ---
Author Organization [facility] Address [address] [place] [address] Phone Care Team Providers Care Line Service Supervisor Name Role Phone Jesús Grimaldo MD Primary Care Provider [phone] Italia Mclaughlin MD Unavailable [phone] Jeanine Gamboa RN Unavailable [phone] Whit Cristobal RN Unavailable [phone] Andre Londono RN Unavailable [phone] Bubba Hernandez EARLY CHILDHOOD EDUCATION COORDINATOR Unavailable [phone] Jesús Grimaldo MD Primary Care Provider [phone] Jeremías Hopkins MD Primary Care Provider + Vandana De Jesus RN Unavailable [phone] Encounter Details Date Type Department Care Team (Late st Contact Info) Description 01/20/2018 Orders Only [facility] ProviderDeonna MD [address] [place] [address] Social History Tobacco Use Types Packs/Day Years Used Date Smoking Tobacco: Former Smokeless Tobacco: Never Alcohol Use Standard Drinks/Week Comments No 0 (1 standard drink = 0.6 oz pur e alcohol) Sex and Gender Information Value Date Recorded Sex Assigned at Not on file Legal Sex Male 8:55 AM NARCOTICS AND/OR VICE DETECTIVE Gender Identity Not on file Sexual Orientation Straight 07/03/2020 12 :48 PM CDT documented as of this encounter Plan of Treatment Not on file documented as of this encounter Procedures Procedure Name Priority Date/Time Associated Diagnosis Comments DISCHARGE LABORATORY CUMULATIVE REPORT 01/20/2018 12:00 AM CDT documented in this encounter Results * DISCHARGE LABORATORY CUMULATIVE REPORT (01/20/2018 12:00 AM CDT) Narrative 01/20/2018 12:00 AM CDT Ordered by an unspecified provider. us Historical Provider LAB BLOOD ORDERABLES Francie l Result documented in this encounter Visit Diagnoses Not on filedocumented in this encounter Additional Health Concerns Infection Onset Date Last Indicated Resolved Time C. difficile Comment:Treatment completed and symptoms resolved. Feces 09/04/19, 10/20/19 09/04/2019 01/26/2020 01/11/2021 4:09 PM CDT COVID: Suspected 08/21/2020 08/21/2020 08/22/2020 9:59 PM NARCOTICS AND/OR VICE DETECTIVE COVID19 08/21/2020 08/21/2020 09/14/2020 3:06 AM NARCOTICS AND/OR VICE DETECTIVE COVID: Recovered Comment:Added based on recent COVID infection. 09/14/2020 09/14/2020 01/12/2021 3:05 AM C DT documented as of this encounter Care Teams Line Service Supervisor Relationship Specialty Start Date End Date Jesús Grimaldo MD PCP - General 01/04/17 03/14/22 Jesús Grimaldo MD [address] [place] [address] [facility] [place] [address] PCP - General 03/15/22 03/21/22 Jeremías Hopkins MD [address] [facility] [place] [address] PCP - General Internal Medicine 03/23/22 Italia Mclaughlin MD [address] [facility] [address] [place] [address] Consulting Physician Interventional Cardiology 07/02/18 Jeanine Gamboa, PACO [address] [place] [address] [address] [place] [address] Funeral Arranger 10/15/18 10/23/18 Whit Cristobal, PACO [address] [place] [address] [facility] [address] [place] [address] Funeral Arranger 09/14/19 11/04/19 Andre Londono RN [address] [place] [address] [facility] [address] [place] [address] Funeral Arranger 09/02/20 10/04/20 Bubba Hernandez NP [address] [place] [address] [facility] [address], [place] [address] Nurse Practitioner Nurse Practitioner 05/17/21 Vandana De Jesus, PACO [address] [facility] [address] [place] [address] SHOP Outpatient Fish Seiner 08/31/24 08/31/24 documented as of this encounter
--- OUTSIDE RECORDS SUMMARY | 2025-04-26 12:06 | XMS_ITS | Clinical Summary ---
Author Organization [facility] Address [address] [facility] [place] [address] Care Team Providers Care Metal Furniture Polisher Name Role Phone Jesús Grimaldo MD Primary Care Provider Unavail able Source Comments [facility],non-owned Affiliates and Associated Physician Practices is amultiple site organization consisting of ambulatory clinics and hospital sitesin [place], [place], [place] and [place]. This disclosure is being madepursuant to the Care Everywhere program and may not contain all information available regarding this patient. Last updated 18.[facility] [employer] Allergies Active Allergy Reactions Criticality Noted Date Comments Povidone Iodine Rash Medium 05/06/2017 Levofloxacin 05/06/2017 Painful extremeties Prednisone Psychiatric Medium 06/21/2017 Causes rage Medications * Be aware that medications may not be up to date on this document. Alwaysverify current medications with the patient. rosuvastatin (CRESTOR) 20 MG tablet Take 20 mg by mouth every Saturday, Saturday & Saturday Active niacin CR (NIASPAN) 500 MG tablet Take 500 mg by mouth at bedtime Active PARoxetine (PAXIL) 40 MG tablet Take 40 mg by mouth once daily Active HYDROcodone-smitha taminophen (NORCO) 10-325 MG tablet Take 1 Tab by mouth every 4 hours as needed for Pain Active multivitamin daily (THERAGRAN) tablet Take 1 Tab by mouth daily with food Active tamsulosin (FLOMAX) 0.4 MG capsule Take 0.8 mg by mouth once daily Take 30 minutes after a meal at the same time each day. Active finasteride (PROSCAR) 5 MG tablet Take 5 mg by mouth once daily Active ALPRAZolam (XANAX) 0.5 MG tablet Take 0.5 mg by mouth 2 times daily Active methotrexate 2.5 MG tablet Take 2.5 mg by mouth every 7 days Active dabigatran (PRADAXA) 150 MG capsule Take 150 mg by mouth 2 times daily Active sotalol (BETAPACE) 80 MG tablet Take 40 mg by mouth 2 times daily Active folic acid (FOLVITE) 1 MG tablet Take 1 mg by mouth once daily Active oxyCODONE (OXY-IR) 5 MG capsule Take 5 mg by mouth every 4 hours as needed for Pain Active sulfamethoxazol e-trimethoprim (BACTRIM DS; SEPTRA DS) 800-160 MG tablet Take 1 Tab by mouth 2 times daily Active Social History Tobacco Use Types Packs/Day Years Used Date Smoking Tobacco: Former Cigarettes Q uit: 05/06/1996 Smokeless Tobacco: Former Quit: 05/06/1996 Tobacco Cessation:Counseling Given: No Alcohol Use Standard Drinks/Week Comments No 0 (1 standard drink = 0.6 oz pur e alcohol) Sex and Gender Information Value Date Recorded Sex Assigned at Not on file Legal Sex Male 8:18 AM CDT Gender Identity Male 06/21/2017 8:37 AM CDT Sexual Orientation Not on file Last Filed Vital Signs Vital Sign Reading Time Taken Comments Blood Pressure 140/88 06/21/2017 11:20 AM CDT Pulse 68 06/21/2017 11:20 AM CDT Temperature 36.2 C (97.2 F) 06/21/2017 9:08 AM CDT Respiratory Rate 16 06/21/2017 11:20 AM CDT Oxygen Saturation 99% 06/21/2017 11:20 AM CDT Inhaled Oxygen Concentration - - Weight 111.6 kg (246 lb) 06/21/2017 9:08 AM CDT Height 182.9 cm (6') 06/21/2017 9:08 AM CDT Body Mass Index 33.36 06/21/2017 9:08 AM CDT Plan of Treatment Health Maintenance Due Date Last Done Comments HEPATITIS C SCREENING 07/08/1966 DTAP/TDAP/TD VACCINES (1 - Tdap) 1967 PNEUMOCOCCAL VACCINE 50+ (1 of 1 - PCV) 1998 ZOSTER VACCINE (1 of 2) 1998 Respiratory Syncytial Virus (RSV) Vaccine Pt: or over 60 yrs (1 - 1-dose 75+ series) 2023 COVID-19 VACCINE (2023- season) 2024 DEPRESSION SCREENING 10/07/2024 INFLUENZA VACCINE (#1) 2025 6, 07/14/2015, 09/15/2014, Additional history exists HEPATITIS B VACCINE Aged Out No longe r eligible based on patient's age to complete this topic HIB VACCINE Aged Out No longer eligi ble based on patient's age to complete this topic HPV VACCINE Aged Out No longer eligi ble based on patient's age to complete this topic MENINGOCOCCAL (Group B) VACCINE SHARED DECISION-MAKING Aged Out No longer eligible based on patient's age to complete this topic MENINGOCOCCAL GROUPS A/C/Y/W VACCINE Aged Out No longer eligible based on patient's age to complete this topic Insurance MEDICARE [facility] MEDICARE [facility] Care Teams Metal Furniture Polisher Relationship Specialty Start Date End Date Jesús Grimaldo MD PCP - General Internal Medicine 05/06/17
--- OUTSIDE RECORDS SUMMARY | 2025-04-26 12:06 | XMS_ITS | Encounter Summary ---
Author Organization [facility] Address [address] [place] [address] Phone Care Team Providers Care Implementation Coordinator Name Role Phone Jesús Grimaldo MD Primary Care Provider [phone] Tamy Sr MA Unavailable Italia Mclaughlin MD Unavailable [phone] Jeanine Gamboa RN Unavailable Whit Cristobal RN Unavailable [phone] Andre Londono RN Unavailable [phone] Bubba Hernandez NP Unavailable [phone] Jesús Grimaldo MD Primary Care Provider [phone] Jeremías Hopkins MD Primary Care Provider + Vandana De Jesus RN Unavailable [phone] Encounter Details Date Type Department Care Team (Late st Contact Info) Description 10/16/2017 Orders Only [facility] ProviderDeonna MD [address] [place] [address] Social History Tobacco Use Types Packs/Day Years Used Date Smoking Tobacco: Former Smokeless Tobacco: Never Alcohol Use Standard Drinks/Week Comments No 0 (1 standard drink = 0.6 oz pur e alcohol) Sex and Gender Information Value Date Recorded Sex Assigned at Not on file Legal Sex Male 8:55 AM EXECUTIVE MANAGER Gender Identity Not on file Sexual Orientation Straight 07/03/2020 12 :48 PM CDT documented as of this encounter Plan of Treatment Not on file documented as of this encounter Procedures Procedure Name Priority Date/Time Associated Diagnosis Comments DISCHARGE LABORATORY CUMULATIVE REPORT 10/16/2017 12:00 AM EXECUTIVE MANAGER documented in this encounter Results * DISCHARGE LABORATORY CUMULATIVE REPORT (10/16/2017 12:00 AM EXECUTIVE MANAGER) Narrative 10/16/2017 12:00 AM EXECUTIVE MANAGER Ordered by an unspecified provider. us Historical Provider LAB BLOOD ORDERABLES Francie l Result documented in this encounter Visit Diagnoses Not on filedocumented in this encounter Additional Health Concerns Infection Onset Date Last Indicated Resolved Time C. difficile Comment:Treatment completed and symptoms resolved. Feces 09/04/19, 10/20/19 09/04/2019 01/26/2020 01/11/2021 4:09 PM CDT COVID: Suspected 08/21/2020 08/21/2020 08/22/2020 9:59 PM EXECUTIVE MANAGER COVID19 08/21/2020 08/21/2020 09/14/2020 3:06 AM EXECUTIVE MANAGER COVID: Recovered Comment:Added based on recent COVID infection. 09/14/2020 09/14/2020 01/12/2021 3:05 AM C DT documented as of this encounter Care Teams Implementation Coordinator Relationship Specialty Start Date End Date Jesús Grimaldo MD PCP - General 01/04/17 03/14/22 Jesús Grimaldo MD [address] [place] [address] [facility] [place] [address] PCP - General 03/15/22 03/21/22 Jeremías Hopkins MD [address] [facility] [place] [address] PCP - General Internal Medicine 03/23/22 Tamy Sr MA [address] [place] [address] ACO Care Heat Reader 10/16/17 10/16/17 Italia Mclaughlin MD [address] [facility] [address] [address] Consulting Physician Interventional Cardiology 07/02/18 eJanine Gamboa, PACO [address] [facility] [address] [place] [address] Logistics And Planning Manager 10/15/18 10/23/18 Whit Cristobal, PACO [address] [facility] [address] [place] [address] Logistics And Planning Manager 09/14/19 11/04/19 Andre Londono RN [address] [facility] [address] [place] [address] Logistics And Planning Manager 09/02/20 10/04/20 Bubba Hernandez, KARINE [address] [place] [address] [facility] [address] [place] [address] Nurse Practitioner Nurse Practitioner 05/17/21 Vandana De Jesus, PACO [address] [facility] [address] [place] [address] SHOP Outpatient Pre K Special Education Teacher 08/31/24 08/31/24 documented as of this encounter
--- OUTSIDE RECORDS SUMMARY | 2025-04-26 12:06 | XMS_ITS | Encounter Summary ---
Author Organization [facility] Address [address] [facility] [place] [address] Care Team Providers Care Slurry Tank Tender Name Role Phone Jesús Grimaldo MD Primary Care Provider Unavail able Encounter Details Date Type Department Care Team (Late st Contact Info) Description 02/24/2020 Lab Requisition [facility] [address] [facility] [place] [address] Anita Sullivan DO [address] [facility] [address] [place] [address] Social History Tobacco Use Types Packs/Day Years Used Date Smoking Tobacco: Former Cigarettes Q uit: 05/06/1996 Smokeless Tobacco: Former Quit: 05/06/1996 Alcohol Use Standard Drinks/Week Comments No 0 (1 standard drink = 0.6 oz pur e alcohol) Sex and Gender Information Value Date Recorded Sex Assigned at Not on file Legal Sex Male 8:18 AM CDT Gender Identity Male 06/21/2017 8:37 AM CDT Sexual Orientation Not on file documented as of this encounter Plan of Treatment Not on file documented as of this encounter Procedures Procedure Name Priority Date/Time Associated Diagnosis Comments DERMATOPATHOLOGY Routine 02/23/2020 12:0 0 AM CDT documented in this encounter Results * DERMATOPATHOLOGY (02/23/2020 12:00 AM CDT) Case Report Dermatopathology Report Case: [id number] Authorizing Provider: Anita Sullivan DO Collected: 02/23/2020 12:00 AM Ordering Location: [facility] DermPath Lab Received: 02/24/2020 01:18 PM Pathologist: Samira Zeng MD Specimens: A) - Skin, left helix B) - Skin, left chest 0 3:51 PM CDT DERMATOPATHOLOGY LABORATORY Final Diagnosis Specimen A. 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 B: Mac SK R/O MM. 0 3:51 PM CDT DERMATOPATHOLOGY LABORATORY Gross Description Specimen A: Received is one formalin filled container labeled with the patient's name and designated left helix. The specimen consists of a shave measuring [id number]. Jar 0. Specimen B: Received is one formalin filled container labeled with the patient's name and designated left chest. The specimen consists of a shave measuring [id number]. Jar 0. 0 3:51 PM CDT DERMATOPATHOLOGY LABORATORY Microscopic Description Specimen A. SKIN, left helix: There is epidermal hyperplasia overlying dilated blood vessels and fibroplasia. Specimen B. SKIN, left chest: Sections show compact orthokeratosis with acanthosis composed of slightly larger keratinocytes with basal layer hyperpigmentation. 0 3:51 PM CDT DERMATOPATHOLOGY LABORATORY Disclaimer An external and internal positive and negative controls are appropriate for the histochemical, immunohistochemical and immunofluorescence stain(s) in this case (if any), except where stated explicitly. The performance characteristics of the stain(s) cited in this report were developed and its performance characteristic determined by the Dermatopathology Laboratory at [facility], directed by Dr. Jigar Zeng. These tests need not be, and therefore are not, approved by the [place] Food and Drug Administration. The tests are used for clinical purposes. Billing Codes Specimen Charges Stain Charges 37808 74256 1 1 0 3:51 PM CDT DERMATOPATHOLOGY LABORATORY Embedded Images 0 3:51 PM CDT DERMATOPATHOLOGY LABORATORY Pathology/Cytology TISSUE SPECIMEN FROM SKIN / Unknown 02/23/2020 02/24/2020 1:18 PM CDT Miscellaneous samples (specimen) TISSUE SPECIMEN FROM SKIN / Unknown 02/23/2020 02/24/2020 1:18 PM CDT us Anita Sullivan DO LAB - PATHOLOGY/CYTOLOGY ORDERABLES Final Result DERMATOPATHOLOGY LABORATORY [facility] - Department of Dermatology Technical Support Agent Center/[address] [phone] documented in this encounter Visit Diagnoses Not on filedocumented in this encounter Care Teams Slurry Tank Tender Relationship Specialty Start Date End Date Jesús Grimaldo MD PCP - General Internal Medicine 05/06/17 documented as of this encounter
--- OUTSIDE RECORDS SUMMARY | 2025-04-26 12:06 | XMS_ITS | Patient Health Record ---
Author Organization [facility] emani Address [address] [facility] [address] [place] [address] Care Team Providers Care Radial Router Operator Name Role Phone Jesús Grimaldo MD Primary Care Provider Misty Toure Erin Unavailable [phone] Reason For Referral No Information Medications Medication SIG (Take, Route, Frequency, Duration) Notes Start Date End Date Status Pradaxa oral *Pick strength-form from [employer] for eRX* Active Metoprolol Succinate ER 100 MG Oral Active Finasteride 5 MG Oral Act deyanira Tamsulosin HCl 0.4 MG Oral Active Ferrous Sulfate 325 (65 Fe) MG Oral Active Aspirin 81 81 MG Oral Act deyanira Amiodarone HCl 200 MG take 1 tablet (200 mg) by oral route once daily Oral 1 Active Paxil 20 MG Oral Active Plan Of Treatment No Information Insurance Providers Payer Name Payer Address Payer Phone Subscriber Number Group Number Insured Name Patient Relationship to Insured Coverage Start Date Coverage End Date DO NOT USE AR [id number] Mayo Wyatt Self - patient is the insured [address] [facility] [address] [place] [address] [id number] Mayo Wyatt Self - patient is the insured Medical (General) History Surgical History Surgery Date(Month/Year) rotator cuff; 2018-03-12 LEFT KNEE ARTHROPLASTY; 2018-03-12 Gastric Bypass; 2018-03-12 carpal tunnel; 2018-03-12
--- OUTSIDE RECORDS SUMMARY | 2025-04-26 12:06 | XMS_ITS | Encounter Summary ---
Author Organization [facility] Address [address] [place] [address] Phone Care Team Providers Care Underground Repairer Name Role Phone Jesús Grimaldo MD Primary Care Provider [phone] Italia Mclaughlin MD Unavailable [phone] Jeanine Gamboa RN Unavailable [phone] Whit Cristobal RN Unavailable [phone] Andre Londono RN Unavailable [phone] Bubba Hernandez HOUSE WORKER GENERAL Unavailable [phone] Jesús Grimaldo MD Primary Care Provider [phone] Jeremías Hopkins MD Primary Care Provider + Vandana De Jesus RN Unavailable [phone] Encounter Details Date Type Department Care Team (Late st Contact Info) Description 12/17/2017 Orders Only [facility] ProviderDeonna MD [address] [place] [address] Social History Tobacco Use Types Packs/Day Years Used Date Smoking Tobacco: Former Smokeless Tobacco: Never Alcohol Use Standard Drinks/Week Comments No 0 (1 standard drink = 0.6 oz pur e alcohol) Sex and Gender Information Value Date Recorded Sex Assigned at Not on file Legal Sex Male 8:55 AM L D RN Gender Identity Not on file Sexual Orientation Straight 07/03/2020 12 :48 PM CDT documented as of this encounter Plan of Treatment Not on file documented as of this encounter Procedures Procedure Name Priority Date/Time Associated Diagnosis Comments DISCHARGE LABORATORY CUMULATIVE REPORT 12/17/2017 12:00 AM CDT documented in this encounter Results * DISCHARGE LABORATORY CUMULATIVE REPORT (12/17/2017 12:00 AM CDT) Narrative 12/17/2017 12:00 AM CDT Ordered by an unspecified provider. us Historical Provider LAB BLOOD ORDERABLES Francie l Result documented in this encounter Visit Diagnoses Not on filedocumented in this encounter Additional Health Concerns Infection Onset Date Last Indicated Resolved Time C. difficile Comment:Treatment completed and symptoms resolved. Feces 09/04/19, 10/20/19 09/04/2019 01/26/2020 01/11/2021 4:09 PM CDT COVID: Suspected 08/21/2020 08/21/2020 08/22/2020 9:59 PM L D RN COVID19 08/21/2020 08/21/2020 09/14/2020 3:06 AM L D RN COVID: Recovered Comment:Added based on recent COVID infection. 09/14/2020 09/14/2020 01/12/2021 3:05 AM C DT documented as of this encounter Care Teams Underground Repairer Relationship Specialty Start Date End Date Jesús Grimaldo MD PCP - General 01/04/17 03/14/22 Jesús Grimaldo MD [address] [place] [address] [facility] [place] [address] PCP - General 03/15/22 03/21/22 Jeremías Hopkins MD [address] [facility] [place] [place] [address] PCP - General Internal Medicine 03/23/22 Italia Mclaughlin MD [address] [facility] [address] [place] [address] Consulting Physician Interventional Cardiology 07/02/18 Jeanine Gamboa, PACO [address] [place] [address] [address] [place] [address] Wool Mixer 10/15/18 10/23/18 Whit Cristobal, PACO [address] [place] [address] [facility] [address] [place] [address] Wool Mixer 09/14/19 11/04/19 Andre Londono RN [address] [place] [address] [facility] [address] [place] [address] Wool Mixer 09/02/20 10/04/20 Bubba Hernandez NP [address] [place] [address] [facility] [address], [place] [address] Nurse Practitioner Nurse Practitioner 05/17/21 Vandana De Jesus, PACO [address] [facility] [address] [place] [address] SHOP Outpatient Mechanical Expert 08/31/24 08/31/24 documented as of this encounter
--- OUTSIDE RECORDS SUMMARY | 2025-04-26 12:06 | XMS_ITS | Encounter Summary ---
Author Organization [facility] Address [address] [place] [address] Phone Care Team Providers Care Deputy Administrator Name Role Phone Jesús Grimaldo MD Primary Care Provider [phone] Italia Mclaughlin MD Unavailable [phone] Jeanine Gamboa RN Unavailable [phone] Whit Cristobal RN Unavailable [phone] Andre Londono RN Unavailable [phone] Bubba Hernandez CLOCKMAKER APPRENTICE Unavailable [phone] Jesús Grimaldo MD Primary Care Provider Jeremías Hopkins MD Primary Care Provider + Vandana De Jesus RN Unavailable Encounter Details Date Type Department Care Team (Late st Contact Info) Description 01/24/2018 Orders Only [facility] ProviderDeonna MD [address] [place] [address] Social History Tobacco Use Types Packs/Day Years Used Date Smoking Tobacco: Former Smokeless Tobacco: Never Alcohol Use Standard Drinks/Week Comments No 0 (1 standard drink = 0.6 oz pur e alcohol) Sex and Gender Information Value Date Recorded Sex Assigned at Not on file Legal Sex Male 8:55 AM BUILDINGS AND GROUNDS DIRECTOR Gender Identity Not on file Sexual Orientation Straight 07/03/2020 12 :48 PM CDT documented as of this encounter Plan of Treatment Not on file documented as of this encounter Procedures Procedure Name Priority Date/Time Associated Diagnosis Comments DISCHARGE LABORATORY CUMULATIVE REPORT 01/24/2018 12:00 AM CDT documented in this encounter Results * DISCHARGE LABORATORY CUMULATIVE REPORT (01/24/2018 12:00 AM CDT) Narrative 01/24/2018 12:00 AM CDT Ordered by an unspecified provider. us Historical Provider LAB BLOOD ORDERABLES Francie l Result documented in this encounter Visit Diagnoses Not on filedocumented in this encounter Additional Health Concerns Infection Onset Date Last Indicated Resolved Time C. difficile Comment:Treatment completed and symptoms resolved. Feces 09/04/19, 10/20/19 09/04/2019 01/26/2020 01/11/2021 4:09 PM CDT COVID: Suspected 08/21/2020 08/21/2020 08/22/2020 9:59 PM BUILDINGS AND GROUNDS DIRECTOR COVID19 08/21/2020 08/21/2020 09/14/2020 3:06 AM BUILDINGS AND GROUNDS DIRECTOR COVID: Recovered Comment:Added based on recent COVID infection. 09/14/2020 09/14/2020 01/12/2021 3:05 AM C DT documented as of this encounter Care Teams Deputy Administrator Relationship Specialty Start Date End Date Jesús Grimaldo MD PCP - General 01/04/17 03/14/22 Jesús Grimaldo MD [address] [place] [address] [facility] [place] [address] PCP - General 03/15/22 03/21/22 Jeremías Hopkins MD [address] [place] [address] PCP - General Internal Medicine 03/23/22 Italia Mclaughlin MD [address] [facility] [address] [place] [address] Consulting Physician Interventional Cardiology 07/02/18 Jeanine Gamboa, PACO [address] [place] [address] [address] [place] [address] Strip Tank Tender 10/15/18 10/23/18 Whit Cristobal, PACO [address] [place] [address] [facility] [address] [place] [address] Strip Tank Tender 09/14/19 11/04/19 Andre Londono RN [address] [place] [address] [facility] [address] [place] [address] Strip Tank Tender 09/02/20 10/04/20 Bubba Hernandez NP [address] [place] [address] [facility] [address], [place] [address] Nurse Practitioner Nurse Practitioner 05/17/21 Vandana De Jesus, PACO [address] [facility] [address] [place] [address] SHOP Outpatient Contaminated Land Consultant 08/31/24 08/31/24 documented as of this encounter
--- OUTSIDE RECORDS SUMMARY | 2025-04-26 12:06 | XMS_ITS | Referral Summary ---
Author Organization [facility] Address [address] [place] [address] Care Team Providers Care [facility] [employer] Name Role Phone Lissette Italia Garrett MD Unavailable [phone] Bubba Hernandez NP Unavailable Jeremías Hopkins MD Primary Care Provider + Encounters Date Type Department Care Team Description 04/15/2025 2:25 PM CDT Lab [facility] [address] [place] [address] 04/02/2025 Orders Only [facility] Cardiology [address] [facility] Advanced [facility] 8th [place] [address] [place] [id number] Leo Barney MD 03/30/2025 Orders Only [facility] [address] [place] [address] Sho Weber MD from Last 3 Months Allergies Active Allergy Reactions Criticality Noted Date Comments Povidone-Iodine Rash,Blisters High .no problems with IV contrast dye Levofloxacin Other (See comments),Nausea & Vomiting Low NAUSEA/VOMITING ABDOMINAL PAIN, Soap Rash Medium TIDE and TIDE free Medications cyanocobalamin, vitamin B-12, 500 mcg tablet,disinteg ratingIndicatio ns:Prevention of Vitamin B12 Deficiency Place 1 tablet under the tongue 3 (three) times a week Has to take sublingual or shot Active finasteride (PROSCAR) 5 mg tablet TAKE ONE TABLET BY MOUTH ONCE DAILY 90 tablet 3 1 Active Additional Information Patient taking differently: 5 mg oral Daily (early AM), Reported on 01/05/2025 multivitamin with iron tabletIndicatio ns:Mineral Deficiency Prevention,Leta min Deficiency Prevention Take 1 tablet by mouth every morning 6 Active calcium carbonate-vitam in D3 1,250 mg (500 mg elemental)-400 unit tablet Take 2 tablets by mouth 2 (two) times a day Active HYDROcodone-ana taminophen (NORCO) 10-325 mg per tabletIndicatio ns:Pain Take 1 tablet by mouth every 6 (six) hours as needed for pain 120 tablet 2 Active PARoxetine (PAXIL) 40 mg tablet Take 1 tablet (40 mg total) by mouth daily 90 tablet 3 2 Active ferrous sulfate 325 mg (65 mg of elemental iron) tablet Take 1 tablet (325 mg total) by mouth daily 3 Active allopurinoL (ZYLOPRIM) 100 mg tablet Take 1 tablet (100 mg total) by mouth daily Active levothyroxine (SYNTHROID) 88 mcg tablet Take 1 tablet (88 mcg total) by mouth process control programmer before breakfast Active rosuvastatin (CRESTOR) 40 mg tablet Take 1 tablet (40 mg total) by mouth 2 (two) times a week Saturday and Fridays Active ezetimibe (ZETIA) 10 mg tablet Take 1 tablet (10 mg total) by mouth daily Active cholecalciferol (VITAMIN D-3) 1,000 unit Take 2 tablet/capsule (2,000 Units total) by mouth daily Active simethicone (GAS-X) 125 mg capsule Take one pill up to 4 times daily as needed for problematic cramping, bloating, gas, or nausea issues. 120 capsule 3 4 Active ondansetron (ZOFRAN) 4 mg tablet Take 1 tablet (4 mg total) by mouth every 6 (six) hours as needed for nausea or vomiting 60 tablet 3 4 Active midodrine (PROAMATINE) 10 mg tablet Take 1 tablet (10 mg total) by mouth 3 (three) times a day as needed (for low BP) 90 tablet 11 4 Active Additional Information Patient taking differently:10 mg oral3 times daily, Reported on 01/05/2025 Lactobac no.41/Bifidobac t no.7 (PROBIOTIC-10 ORAL) 0 Active silodosin (RAPAFLO) 8 mg capsule Take by mouth daily 4 Active furosemide (LASIX) 20 mg tablet Take 1 tablet (20 mg total) by mouth daily as needed (Pt. states he usually only has to take once a week.) Take 20mg as needed for fluid retention but take 40mg (2 tabs) if you gain more than 3 pounds in one day or 5 pounds in one week. 60 tablet 2 4 Active aspirin 81 mg enteric coated tablet Take 1 tablet (81 mg total) by mouth daily 30 tablet 11 4 10/05/20 25 Active Active Problems Problem Noted Date Diagnosed Date Other thrombophilia 10/05/2024 Weakness 10/05/2024 CKD (chronic kidney disease) stage 2, GFR 60-89 ml/min 08/26/2024 Assessment & Plan (08/27/2024 11:14 AM FIRE ENGINE OPERATOR): -baseline cr ~1.2, admission cr 1.6, now improved to 1.39 -unclear etiology of CHARY, potentially due to mild volume overload but improved prior to receiving diuretics -monitor bmp -avoid nephrotoxins Assessment & Plan (08/26/2024 2:29 PM FIRE ENGINE OPERATOR): -baseline cr ~1.2, currently 1.6 -unclear etiology of CHARY, appears euvolemic on exam -monitor bmp -avoid nephrotoxins Stercoral colitis 03/23/2024 Irritable bowel syndrome wit h both constipation and diarrhea 03/23/2024 Small intestinal bacterial overgrowth (SIBO) History of gastric bypass 03/23/2024 History of cholecystectomy 03/23/2024 Presence of Watchman left atrial appendage closu re device 02/17/2024 Assessment & Plan (05/15/2024 2:37 PM CDT): S/p Watchman on 03/27/2022 - No CVA/TIA symptoms - Continue aspirin daily Assessment & Plan (02/17/2024 12:54 PM CDT): Watchman procedure on 03/27/2022. Currently on OAC due to recent cardioversion. He is in sinus bradycardia today. Has unchanged shortness of breath that did not improve with cardioversion. Orthostatic vital signs negative. Had a chronotropic response with exertion. Blood thinner per EP. Notified EP regarding low heart rate and they will manage when they see patient on Saturday. Will follow up with his local power line installer and repairer regarding ongoing MCKEON. Follow up in 1 year for 2 year Watchman follow up. Chronic diarrhea 01/06/2024 Gastroesophageal reflux disease without esophagi tis 01/06/2024 Tubular adenoma of colon 01/06/2024 Nonrheumatic tricuspid valve regurgitation 08/17 Chronic fatigue 08/16/2022 Overview (08/16/2022): Added automatically from request for surgery [id number] Heart failure with mid-range ejection fraction ( HFmEF) 03/27/2022 Assessment & Plan (08/27/2024 11:12 AM FIRE ENGINE OPERATOR): Mixed cardiomyopathy, HFmEF, most recent echo 04/2024 EF 46%, grade II DD on prior echo -NT-proBNP 2,998 08/21, repeat 2,665, mildly volume overloaded on exam -admission lactate 2.1, improved to 1.7, warm on exam -started lasix 40mg iv bid, refused 1st dose last evening, cr improved prior to receiving a dose -continue metroprolol xl 50mg -intolerant of ANA-I/ARB/ARNI due to hypotension -consider starting spironolactone and SGLT2i -midodrine 10mg tid prn for hypotension at home -monitor I/O, daily wt Assessment & Plan (08/26/2024 2:15 PM FIRE ENGINE OPERATOR): Mixed cardiomyopathy, HFmEF, most recent echo 04/2024 EF 46%, grade II DD on prior echo -appears euvolemic despite NT-proBNP 2,998 and CHARY -admission lactate 2.1, warm on exam, will repeat -continue metroprolol xl 50mg -intolerant of ANA-I/ARB/ARNI due to hypotension -consider starting spironolactone and SGLT2i -midodrine 10mg tid prn for hypotension at home -monitor I/O, daily wt Assessment & Plan (05/15/2024 2:41 PM CDT): Mixed cardiomyopathy with mild HFrEF - Reports MCKEON - Will check NT-proBNP, if elevated, we discussed that he may benefit from more regularly scheduled lasix dosing Assessment & Plan (03/28/2022 9:49 AM CDT): History of chronic heart failure with recovered ejection fraction (71% in 06/2020) -ot remains stable and euvolemic on examination (he reports baseline trace pedal edema) -continue metoprolol XL 50 mg BID -low salt diet, monitor I/Os -tele Acquired hypothyroidism 09/20/2021 Assessment & Plan (08/27/2024 1:21 PM FIRE ENGINE OPERATOR): `Tsh 6.67, Free t4 1.39 -cont home levothyroxine 88mcg po daily Assessment & Plan (08/26/2024 1:44 PM FIRE ENGINE OPERATOR): `Tsh 6.67, Free t4 1.39 -cont home levothyroxine 88mcg po daily Assessment & Plan (03/27/2022 9:26 PM CDT): -continue home levothyroxine 75 mcg daily Hypotension due to drugs 07/17/2021 Assessment & Plan (03/27/2022 9:26 PM CDT): -continue home midodrine 15 mg BID -likely can wean outpatient if metoprolol dose can be reduced now that he is post repeat ablation Overweight with body mass in dex (BMI) of 27 to 27.9 in adult 05/04/2021 Rotator cuff arthropathy, right 02/08/2021 Overview (02/08/2021): Added automatically from request for surgery [id number] Chronic cholecystitis 01/10/2021 Assessment & Plan (01/26/2021 11:36 AM CDT): Diet as tolerated. Okay to return to work with light duty. No heavy lifting greater than 20 lb for 4 weeks. No submerging incisions for 4 weeks. Please call for any further questions or concerns. Assessment & Plan (01/10/2021 11:42 AM CDT): The lack of filling is consistent with chronic cholecystitis. We will set him up for cholecystectomy. Risks and benefits have been explained to include post cholecystectomy diarrhea. He has already been cleared for an upcoming shoulder surgery and has been allowed to stop his anticoagulation. This will be held 3 days prior to surgery. Pre-admission testing will be sent in. All questions have been answered. Chronic neck and back pain 12/05/2020 Rotator cuff arthropathy of right shoulder 11/22 Benign prostatic hyperplasia without lower urinary tract symptoms 09/13/2019 History of coronary angioplasty with insertion o f stent 08/12/2019 Chronic coronary artery disease 01/24/2018 Assessment & Plan (05/16/2018 1:52 PM CDT): Continue aspirin, statin. Asymptomatic. S/P ablation of atrial fibrillation 10/31/2017 Coronary artery disease invo lving [place] coronary artery of [place] heart without angina pectoris 07/25/2017 Assessment & Plan (08/27/2024 11:12 AM FIRE ENGINE OPERATOR): History of multivessel CAD and prior MIs s/p PCI in 2004 at [facility] with RAFAELA to LAD and RCA, and mid LAD PCI/stent 09/2022 at [facility] -cont crestor -cont metoprolol Xl 50mg daily Assessment & Plan (08/25/2024 6:05 PM FIRE ENGINE OPERATOR): History of multivessel CAD and prior MIs s/p PCI in 2004 at [facility] with RAFAELA to LAD and RCA, and mid LAD PCI/stent 09/2022 at [facility] -cont crestor -cont metoprolol Xl 50mg daily Assessment & Plan (03/27/2022 9:25 PM CDT): History of multivessel CAD with previous KS and PCI with [facility] to LAD and RCA -last [facility] in 2019 per notes with patent stents and 30% distal left main disease -he is currently free of anginal symptoms -continue ASA 81 mg and rosuvastatin 40 mg 3x per week -continue metoprolol XL 50 mg BID Assessment & Plan (02/14/2018 2:17 PM CDT): Continue aspirin, Crestor. Asymptomatic. Assessment & Plan (10/18/2017 2:33 PM FIRE ENGINE OPERATOR): Continue Crestor. Add baby aspirin 81 mg daily. JIL (obstructive sleep apnea) 05/14/2017 Assessment & Plan (08/28/2024 9:18 AM FIRE ENGINE OPERATOR): S/p Gastric bypass 2004 -Does not wear cpap since weight loss at home but has been using since here Assessment & Plan (08/25/2024 5:49 PM FIRE ENGINE OPERATOR): S/p Gastric bypass 2004 -Does not wear cpap since weight loss Assessment & Plan (03/27/2022 9:30 PM CDT): Previously on CPAP but stopped using due to intolerance -continue JIL precautions -encourage to follow up outpatient for re-trial of CPAP Atrial fibrillation 02/20/2014 Overview (01/09/2017): Paroxysmal atrial fibrillation Assessment & Plan (08/28/2024 9:14 AM FIRE ENGINE OPERATOR): History of paroxysmal a-fib, flutter. Hx Pulmonary vein isolation and flutter line ablation 04/2011, Hx of aflutter ablation and watchman device 04/2022. He has had frequent re occurrence of afib. His amiodarone was increased from daily to bid last week, admitted for consideration of AV node ablation/PPM -currently in rate controlled afib, intermittently in a flutter 130s -continue metoprolol XL 50mg -no anticoagulation, s/p watchman procedure 04/2022 -TTE: most recent echo 04/2024 EF 46% -Discussed limiting caffeine and abstaining from alcohol. -TSH 6.67, free t4 1.39 (prior TSH 10.39 in April) -continue telemetry -successful WEATHER STRIP MECHANIC-P and AVJ RF ablation 08/27 Assessment & Plan (08/26/2024 1:43 PM FIRE ENGINE OPERATOR): History of paroxysmal a-fib, flutter. Hx Pulmonary vein isolation and flutter line ablation 04/2011, Hx of aflutter ablation and watchman device 04/2022. He has had frequent re occurrence of afib. His amiodarone was increased from daily to bid last week, admitted for consideration of AV node ablation/PPM -currently in rate controlled afib, aflutter 130s this am -continue metoprolol XL 50mg -no anticoagulation, s/p watchman procedure 04/2022 -TTE: most recent echo 04/2024 EF 46% -Cardiac Diet -Discussed limiting caffeine and abstaining from alcohol. -TSH 6.67, free t4 1.39 (prior TSH 10.39 in April) -continue telemetry Assessment & Plan (05/16/2018 1:53 PM CDT): In sinus rhythm today. Continue metoprolol. Continue Pradaxa. Assessment & Plan (02/14/2018 2:16 PM CDT): Last visit both Tikosyn and metoprolol were stopped by Dr. Travis. Patient mentions that he felt some fatigue on metoprolol. Today on physical exam I feel frequent PACs. I will add metoprolol 25 mg p.o. b.i.d.. Reassess his symptoms of fatigue and if that happens then I will reduce metoprolol to 12.5 mg p.o. b.i.d. Continue Pradaxa. Assessment & Plan (02/03/2018 11:55 AM CDT): He is in sinus rhythm he is in sinus rhythm today, and is doing well now after his repeat atrial fibrillation ablation in October. Since it has been 3 months, and he denies symptoms consistent with atrial fibrillation, we can discontinue Tikosyn. He is complaining of fatigue since starting metoprolol. He would like to stop this as well. His past medical history does include coronary disease and possible congestive heart failure, although his most recent ejection fraction was normal. Based on his symptoms, he can stop metoprolol today. He should discuss his need for beta- helena with his primary power line installer and repairer. He should continue on anticoagulation with Pradaxa unless contraindication should arise. I will see him again in 3 months for regular follow-up after ablation. Assessment & Plan (11/11/2017 10:16 AM FIRE ENGINE OPERATOR): Overall he is doing well, now 1 month out from repeat pulmonary vein isolation. He was initiated on Tikosyn therapy, likely due to his recurrent paroxysmal atrial fibrillation. He did have some episodes that are consistent with atrial fibrillation. I reviewed expected results from ablation with him and his today. For 3 months following ablation, it is common to have episodes is palpitations and atrial fibrillation. If he has sustained atrial fibrillation for greater than 24 hr then we could consider cardioversion. At this point, his symptoms come and go. For 3 months following ablation, the overall success of the procedure cannot be determined. Also, ablation for atrial fibrillation is done to reduce symptoms and reduce episodes, but may not completely resolved all atrial fibrillation. He should continue medical therapy with Tikosyn. He should continue Pradaxa for anticoagulation given a chads 2 Vasc score of 3 (coronary disease, hypertension, age). He was previously off of anticoagulation and evidently maintaining sinus rhythm. I did discuss with him today that given his risk of stroke I would favor continued treatment with anticoagulation. We can revisit this at his next follow-up appointment. We could consider long- term monitoring with an implantable loop recorder. He evidently had 1 of these placed after the ablation, but had an infection and it was removed. At this point, there is not definitive data regarding how long an episode of atrial fibrillation needs to be to contribute to a stroke. It is typically my practice to continue anticoagulation unless there is a contraindication in someone with a chads 2 Vasc score of 2 or higher. I will see him again in 2 months; at that point we can reassess his symptoms. Assessment & Plan (10/18/2017 2:33 PM FIRE ENGINE OPERATOR): Status post ablation a week ago. Continue Pradaxa, Tikosyn, beta-helena. Assessment & Plan (10/02/2017 2:32 PM FIRE ENGINE OPERATOR): Stable with rate controlled today. Continue on sotalol as well as Pradaxa for anticoagulation purposes. Assessment & Plan (09/24/2017 2:43 PM FIRE ENGINE OPERATOR): Stable with controlled rate office today. Patient is currently taking sotalol for rate control but he does not tolerate medication very well to which he is having a scheduled ablation with Dr. hauser in October. Additionally, continue on Pradaxa for anticoagulation at this time as well. Clostridioides difficile diarrhea Resolved Problems Problem Noted Date Diagnosed Date Resolved Date Slow transit constipation 03/23/2024 Impacted stool in rectum 01/24/2024 Epigastric pain 01/06/2024 08/21/2024 Nausea and vomiting 01/06/2024 08/21/20 24 Atrial fibrillation with rap id ventricular response 12/14/2023 10/05/2024 Atrial fibrillation with RVR 12/12/2023 10/05/2024 Atrial fibrillation 03/14/2022 10/05/20 24 Overview (03/14/2022): Added automatically from request for surgery [id number] Assessment & Plan (05/15/2024 2:42 PM CDT): Persistent atrial fibrillation - S/p Watchman on 03/27/22 - S/p repeat ablation 03/27/2022 - PVI and left post wall isolation via RFA - Amiodarone resumed 12/2023 - DCCV 02/07/2024 - He remains in SR on amiodarone, QT interval stable. Recent AST/ALT and thyroid studies normal. Continue amiodarone 200 mg daily - Continue metoprolol XL 50 mg daily, he did not tolerate higher dose due to bradycardia - If AF recurs despite amiodarone, recommend WEATHER STRIP MECHANIC-P and AV node ablation Assessment & Plan (03/28/2022 9:48 AM CDT): History of symptomatic, persistent Afib s/p multiple cardioversions and two prior ablations -now s/p successful pulmonary vein isolation and left posterior wall isolation via radiofrequency ablation as well as placement of a 31 mm Watchman occluder in the left atrial appendage -pt remains in SR and stable overnight without bleeding/groin stable -continue ASA 81 mg and pradaxa 150 mg BID for 45 days followed by switch to DAPT. -continue metoprolol XL 50 mg BID, anticipate dose reduction in future given episodes of hypotension requiring midodrine -continue PPI daily for 30 days -post procedure wrist/groin precautions -CXR pending--d/c today if ok -tele -he will need [facility]6 [facility] At risk for amiodarone toxic ity with group home use 01/26/2022 03/27/2022 Atrial fibrillation 08/09/2021 01/27/20 Overview (08/09/2021): Added automatically from request for surgery [id number] At high risk for bleeding 08/09/2021 Overview (08/09/2021): Added automatically from request for surgery [id number] Diarrhea of infectious origin 04/11/2021 08/21/2024 Weight loss 04/07/2021 01/09/2022 Biceps tendonitis, right 02/08/202102/2022 Overview (02/08/2021): Added automatically from request for surgery [id number] Chronic nausea 12/06/2020 01/09/2022 Overview (12/06/2020): Added automatically from request for surgery [id number] Biceps tendinitis of right upper extremity 11/22/2020 01/09/2022 History of Clostridioides difficile colitis 10/14/2020 12/06/2020 Pneumonia due to COVID-19 virus 08/28/2020 12/06/2020 Encounter for monitoring amiodarone therapy 04/25/2020 12/06/2020 Subacromial bursitis of right shoulder joint 0 06/09/2020 Assessment & Plan (01/08/2020 2:46 PM CDT): Subacromial bursitis vs rotator cuff tendonitis. MRI discussed, but deferred until evaluated by orthopedist (consulted today in clinic for eval), and no acute trauma concerning need for xray imaging. D/T current anticoagulant use with Pradaxa and little improvement with OTC Tylenol, recommending tapering corticosteroids along with ice/heat and gradual introduction of stretching exercises to assist with limited mobility. 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 Warm compresses, ingestion of sour foods like limit drops were also advised follow up here in a week if there is no improvement or certainly worsening of symptoms. High risk medication use 12/17/2017 Cervicalgia 12/17/2017 01/24/2018 BMI 30.0-30.9,adult 10/02/2017 10/17/19 18 Assessment & Plan (10/02/2017 2:32 PM FIRE ENGINE OPERATOR): Recommended patient to continue to increase heart healthy diet with adequate fruits, vegetables, and plenty of water along with mild-moderate daily exercise as tolerated. MCKEON (dyspnea on exertion) 10/02/2017 Assessment & Plan (10/02/2017 2:41 PM FIRE ENGINE OPERATOR): Considering he is near done with the 10 day course of Augmentin I advised to finish off the last 2 days this in also were going to prescribed a Z-Gianni to cover for atypical causing pneumonia considering his drug allergies to quinolones. Additionally, I prescribed a Medrol Dosepak for the exertional dyspnea and shortness of breath that he is experiencing as this might also benefit if the x-ray and being normal and is more for bronchitis secondary to having a sinusitis infection. I advised patient will follow up with him regarding the results of the x-ray tomorrow once dictated by Radiology and see him here in a week regarding condition and certainly sooner there is any cause for concern after starting the Z-Gianni and Medrol Dosepak BMI 31.0-31.9,adult 09/24/2017 10/17/19 18 Assessment & Plan (09/24/2017 2:35 PM FIRE ENGINE OPERATOR): Recommended patient to continue to increase heart healthy diet with adequate fruits, vegetables, and plenty of water along with mild-moderate daily exercise as tolerated. Acute non-recurrent ethmoidal sinusitis 09/24/2017 10/17/2017 Assessment & Plan (10/02/2017 2:32 PM FIRE ENGINE OPERATOR): Asymptomatic and resolved. Continue on Augmentin for the last 3 days of therapy as well as Flonase for the next 3 days as well and follow up as needed regarding condition Assessment & Plan (09/24/2017 2:41 PM FIRE ENGINE OPERATOR): Recommended Augmentin 1 tablet twice daily for full 10 day course with food and certainly use of kdse-men-[id number] nasal spray such as Flonase. Close monitoring outpatient if symptoms do not seem to improve and certainly if they worsen advised follow up in office regarding condition. Cough with congestion of paranasal sinus 09/24/2017 10/17/2017 Assessment & Plan (09/24/2017 2:41 PM FIRE ENGINE OPERATOR): Recommended [id number] Mucinex along with increased fluids an Tessalon Perles were also prescribed to help with cough suppression at night. If cough persists beyond treatment of ethmoid sinusitis advised to follow up in office regarding condition for further management Dizziness 09/24/2017 10/17/2017 Assessment & Plan (09/24/2017 2:42 PM FIRE ENGINE OPERATOR): Patient notes the dizziness is been a problem for the last few months to which shipyard painter as actually ordered a C-spine to see exact etiology causing his dizziness. I am sure vertigo is exacerbated somewhat by the sinusitis which I will treat today and certainly will touch base with him regarding dizziness after C- spine is completed for additional management if indicated Oral mucosal lesion 08/14/2017 10/17/19 Assessment & Plan (08/14/2017 7:56 AM FIRE ENGINE OPERATOR): Patient demonstrates a thickening callus like scarring along the anterior lateral tongue on the left that appears to be caused by mechanical irritation from the rough edge of a tooth. This does not appear to be a neoplastic process. Recommend dental consultation to address the tooth. Patient can follow back up as needed. Hyperlipidemia 07/25/2017 03/27/2022 Assessment & Plan (10/18/2017 2:35 PM FIRE ENGINE OPERATOR): Continue Crestor. 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 His QTC is acceptable. He should not have his dose increased without hospitalization, and it is likely that it was reduced from 500 mcg to 250 mcg based on QT prolongation as this is a standard loading protocol. Given his recurrence, I would favor continuing antiarrhythmic drug for at least 3 months following ablation. At that time we can consider discontinuation. I advised him to obtain all medications from the same pharmacy, and to a especially avoid any additional QT prolonging agents such as antibiotics, psychiatric medications, or pain medications. 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 07/25/2017 Overview (01/09/2017): MIXED HYPERLIPIDEMIA Sleep apnea 02/20/2014 05/14/2017 Overview (01/09/2017): OTH UNSPCF SLEEP APNEA Benign hypertension 02/20/2014 05/14/20 Overview (01/11/2017): BENIGN HYPERTENSION Postcholecystectomy diarrhea 08/21/2024 CHARY (acute kidney injury) Immunizations Immunization Administration Dates Next Due Influenza, Quadrivalent, Hig h Dose, Preservative Free, Intrr 10/09/2021,07/31/2020 Influenza, Split 09/16/2012,07/19/2011 Influenza, Trivalent, High D ose, Split, Preservative Free, Intramuscular 07/07/2019,08/27/2018,07/25/2017,07/23,07/14/2015,09/15/2014 Influenza, Trivalent, IM (MDV) 2009 Influenza, Unspecified 07/31/2020,2019(Deferred: Patient Refused),01/08/2020(Deferred: Patient Refused) Moderna SARS-CoV-2 Monovalen t Vaccination (12+ YRS) 09/09/2021 Pfizer SARS-CoV-2 Monovalent Vaccination (12+ Yrs) PURPLE 12/30/2020,11/28/2020 Pneumococcal Conjugate PCV 13 07/14/2015 Pneumococcal Polysaccharide PPV23 05/13/2019 Tdap 08/16/2009,10/07/2005 ZOSTER Recombinant 01/22/2019,11/10/2018 Social History Tobacco Use Types Packs/Day Years Used Date Smoking Tobacco: Former Cigarettes 1.5 36.5 1 960 - 04/25/1996 Smokeless Tobacco: Former Chew Quit: 10/21/1995 Alcohol Use Standard Drinks/Week Comments No 0 (1 standard drink = 0.6 oz pur e alcohol) [facility] Utilities Answer Date Recorded In the past 12 months has th e electric, gas, oil, or water company threatened to shut off services in your home? No 12/16/2023 Humiliation, Afraid, Rape, and Kick questionnair e Answer Date Recorded Within the last year, have y ou been afraid of your partner or ex-partner? No 09/02/2020 Within the last year, have y ou been humiliated or emotionally abused in other ways by your partner or ex-partner? No Within the last year, have y ou been kicked, hit, slapped, or otherwise physically hurt by your partner or ex-partner? No 09/02/2020 Within the last year, have y ou been raped or forced to have any kind of sexual activity by your partner or ex-partner? No 09/02/2020 Social Connection and Isolation Panel [NHANES] A nswer Date Recorded In a typical week, how many times do you talk on the phone with family, friends, or neighbors? Three times a week 12/16/2023 How often do you get togethe r with friends or relatives? Three times a week 12/16/2023 How often do you attend chur ch or religion services? Never 12/16/2023 Do you belong to any clubs o r organizations such as oriental orthodox groups, unions, fraternal or athletic groups, or school groups? No 12/16/2023 How often do you attend meet ings of the clubs or organizations you belong to? Never 12/16/2023 Are you , , di vorced, , never , or living with a partner? 12/16/2023 AUDIT-C Answer Date Recorded Q1: How often do you have a drink containing alc ohol? Monthly or less 12/14/2024 Q2: How many drinks containi ng alcohol do you have on a typical day when you are drinking? 3 or 4 12/14/2024 Q3: How often do you have si x or more drinks on one occasion? Less than monthly 12/14/2024 Overall Financial Resource Strain (CARDIA) Answe r Date Recorded How hard is it for you to pa y for the very basics like food, housing, medical care, and heating? Not hard at all 12/16/2023 PHQ-2 Answer Date Recorded PHQ-2 Total Score (If total score is 3 or more points, staff should administer the PHQ-9) 2 01/08/2022 Hunger Vital Sign Answer Date Recorded Within the past 12 months, y ou worried that your food would run out before you got the money to buy more. Never true 12/16/19 24 Within the past 12 months, t he food you bought just didn't last and you didn't have money to get more. Never true 12/16/2023 PRAPARE - Transportation Answer Date Re corded In the past 12 months, has l ack of transportation kept you from medical appointments or from getting medications? No 12/05 In the past 12 months, has l ack of transportation kept you from meetings, work, or from getting things needed for daily living? No 12/16/2023 Housing Stability Vital Sign Answer Louis e Recorded In the last 12 months, was t here a time when you were not able to pay the mortgage or rent on time? No 12/16/2023 In the last 12 months, how many places have you lived? 1 12/16/2023 In the last 12 months, was t here a time when you did not have a steady place to sleep or slept in a half-way (including now)? No 12/16/2023 Personal Safety Answer Date Recorded Have you ever been in or are you currently in a harmful physical or emotional relationship or is someone making you feel afraid or unsafe? Denies 08/25/2024 Education Answer Date Recorded What is the highest level of school you have completed or the highest degree you have received? 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 Gender Identity Not on file Sexual Orientation Straight 07/03/2020 12 :48 PM CDT Last Filed Vital Signs Vital Sign Reading Time Taken Comments Blood Pressure 135/74 01/05/2025 3:25 PM CDT Pulse 91 01/05/2025 3:25 PM CDT Temperature 36.6 C (97.9 F) 08/28/2024 3:58 PM FIRE ENGINE OPERATOR Respiratory Rate 16 08/28/2024 3:58 PM FIRE ENGINE OPERATOR Oxygen Saturation 98% 01/05/2025 3:25 PM CDT Inhaled Oxygen Concentration - - Weight 105.7 kg (233 lb) 01/05/2025 3:25 PM CDT Height 182.9 cm (6') 01/05/2025 3:25 PM CDT Body Mass Index 31.6 01/05/2025 3:25 PM CDT Plan of Treatment Not on file Medical Devices Implanted Type Area Button Maker And Installer Device Identifier Shelf Expiration Date Model / Serial / Lot Terumo Medical Hanane Angio-Seal Vip Bondek-Plus 8fr .038in 70cm Hemostatic Latex Free [id number] - [id number] - [id number] Implanted:Qty: 1 on 09/17/2022 by Gurmeet Smith MD at [facility] Collagen Right: Femoral [employer] Hanane 04/05/2023 [id number] / [id number] / [id number] Medtronic Inc Attain Performa 5.3fr 5.1fr 88cm Quadripolar Is4-Llll 191330 - [id number] - [id number] Implanted:Qty: 1 on 08/27/2024 by Satya Foster MD PhD at [facility] Lead Right: Chest Wall Medtronic Inc 07/03/2026 [id number] / [id number] / [id number] Medtronic Inc Capsurefix Novus 6.2fr 2mm 52cm Bipolar Screw In Implantable Latex Free 5076-52 - [id number] - [id number] Implanted:Qty: 1 on 08/27/2024 by Satya Foster MD PhD at [facility] Lead Right: Chest Wall Medtronic Inc 06/30/2026 5076-52 / [id number] / [id number] Medtronic Inc Capsurefix Novus 6.2fr 2mm 58cm Bipolar Screw In Implantable 5076-58 - [id number] - [id number] Implanted:Qty: 1 on 08/27/2024 by Satya Foster MD PhD at [facility] Lead Right: Chest Wall Medtronic Inc 06/09/2026 5076-58 / [id number] / [id number] Other - See Comments Other - see comments Bilateral: Knee Description:Knee replacement Other - See Comments Other - see comments N/A: Heart Description:Watchman Other - See Comments Other - see comments Bilateral: Knee Description:replacement Other - See Comments Other - see comments Right: Shoulder Description:replacement Medtronic Inc Solara Mri Surescan Bluetooth 46.5x59mm Connector Hole Radiopaque W4tr03 - [id number] - [id number] Implanted:Qty: 1 on 08/27/2024 by Satya Foster MD PhD at [facility] Pacemaker Right: Chest Wall Medtronic Inc 09/19/2025 W4TR03 / [id number] / [id number] Stent Stent N/A: Heart Description:Cardiac stents Medtronic Card Vas Surgery 3.0 X 30mm Vaughn Mccurtain Rx Coronary Stent [id number] - [id number] - [id number] Implanted:Qty: 1 on 09/17/2022 by Gurmeet Smith MD at [facility] Stent N/A: Diagnonal Coronary Artery Medtronic Card Vasc Surgery 04/17/2025 [id number] / [id number] / [id number] Exactech 367-79-95qfroce xe Superior Posterior Augment Shoulder Right 10d 8d - [id number] - [id number] Implanted:Qty: 1 on 05/16/2021 by Arie Alvares MD at [facility] Right: Shoulder Exactech 12/27/2025 320-15-08 / [id number] / Exactech 320-06-42 Component 42mm Glenosphere Extended Locking Cap Kit - [id number] - [id number] Implanted:Qty: 1 on 05/16/2021 by Arie Alvares MD at [facility] Right: Shoulder [employer]ech 01/16/2031 320-06-42 / [id number] / Exactech 320-20-38 Equinoxe 4.5mm 38mm Kit Compression Lock Cap Reverse Shoulder - [id number] - [id number] Implanted:Qty: 1 on 05/16/2021 by Arie Alvares MD at [facility] Right: Shoulder [employer]actech 05/31/2025 320-20-38 / [id number] / Exactech 320-15-05 Equinoxe Lock Reverse Shoulder Glenosphere Screw Bone - [id number] - [id number] Implanted:Qty: 1 on 05/16/2021 by Arie Alvares MD at [facility] Right: Shoulder [employer]ech 03/27/2026 320-15-05 / [id number] / Exactech 320-20-42 Equinoxe 4.5mm 42mm Kit Compression Lock Cap Reverse Shoulder - [id number] - [id number] Implanted:Qty: 1 on 05/16/2021 by Arie Alvares MD at [facility] Right: Shoulder [employer]ech 06/29/2024 320-20-42 / [id number] / Exactech 320-20-00 Reverse Torque Define Shoulder Kit Screw - [id number] - [id number] Implanted:Qty: 1 on 05/16/2021 by Arie Alvares MD at [facility] Right: Shoulder [employer]ech 01/09/2026 320-20-00 / [id number] / Exactech 320-10-00 Equinoxe Reverse Shoulder +0mm Tray Humeral Adapter - [id number] - [id number] Implanted:Qty: 1 on 05/16/2021 by Arie Alvares MD at [facility] Right: Shoulder Exactech 02/09/2031 320-10-00 / [id number] / Exactech 300-01-15 Equinoxe 15mm Press Fit Shoulder Stem Humeral - [id number] - [id number] Implanted:Qty: 1 on 05/16/2021 by Arie Alvares MD at [facility] Right: Shoulder Exactech 07/26/2030 300-01-15 / [id number] / Exactech 320-42-03 Equinoxe 42mm Reverse Shoulder +2.5mm Liner Humeral - [id number] - [id number] Implanted:Qty: 1 on 05/16/2021 by Arie Alvares MD at [facility] Right: Shoulder [employer]actech 12/09/2022 320-42-03 / [id number] / [employer] Hanane Occluder Cardiovascular 31mm Dlv Sys Watchman Flx Strl [id number] - [id number] Implanted:Qty: 1 on 03/27/2022 by Ramon Staples MD at [facility] Left: Atrial Appendage [employer] Hanane 05/22/2024 [id number] / / [id number] Vascade Mvp 6-12fr Venous Closure [id number] - [id number] Implanted:Qty: 1 on 03/27/2022 by Leo Barney MD at [facility] Right: Femoral Vein Cardiva Medical Inc 10/06/2025 [id number] / / [id number] Vascade Mvp 6-12fr Venous Closure [id number] - [id number] Implanted:Qty: 1 on 03/27/2022 by Leo Barney MD at [facility] Left: Femoral Vein [employer]iva [employer] Inc 10/06/2025 [id number] / / [id number] Vascade Mvp 6-12fr Venous Closure [id number] - [id number] Implanted:Qty: 1 on 03/27/2022 by Leo Barney MD at [facility] Left: Femoral Vein [employer] Inc 10/06/2025 [id number] / / [id number] Device Jannet Watchman Procedure - [id number] Implanted:Qty: 1 on 03/27/2022 by aRmon Staples MD at [facility] Left: Atrial Appendage [employer] Hanane [id number] 1-3 PC / / Procedures Procedure Name Priority Date/Time Associated Diagnosis Comments EGFR Routine 04/15/2025 2:28 PM CDT DIFFERENTIAL AUTO Routine 04/15/2025 2:2 8 PM CDT TOTAL TESTOSTERONE Routine 04/15/2025 2: 28 PM CDT T4, FREE Routine 04/15/2025 2:28 PM CDT COMPREHENSIVE METABOLIC PANEL Routine 04/15/2025 2:28 PM CDT PSA DIAGNOSTIC Routine 04/15/2025 2:28 PM CDT CBC WITH AUTO DIFFERENTIAL Routine 04/15/2025 2:28 PM CDT TSH Routine 04/15/2025 2:28 PM CDT CHOLESTEROL, LDL, DIRECT Routine 04/15/2025 2:28 PM CDT LIPID PANEL Routine 04/15/2025 2:28 PM CDT VITAMIN D 25 HYDROXY Routine 04/15/2025 2:28 PM CDT URINALYSIS AND REFLEX TO MICROSCOPIC AND CULTURE Routine 04/15/2025 2:28 PM CDT DEVICE CHECK - REMOTE Routine 04/02/2025 1:25 PM CDT SURGICAL PATHOLOGY Routine 03/30/2025 12 :00 AM CDT COLONOSCOPY 07/01/2024 11:[address] ABDOMEN PELVIS W CONTRAST ED 01/24/2024 10:55 AM CDT HEPATITIS PANEL, ACUTE Routine 3:59 PM CDT Encounter for monitoring cardiotoxic drug therapy Hepatitis from Last 3 Months or Most Recently Relevant to Health Maintenance Results * eGFR (04/15/2025 2:28 PM CDT) eGFR 69 >=60 mL/min/1. 73 m2 Comment: Interpretive Data Reference Interval Normal >/= 90 mL/min/1.73m2 Mildly decreased* 60 - 89 mL/min/1.73m2 Mildly to moderately decreased 45 - 59 mL/min/1.73m2 Moderately to severely decreased 30 - 44 mL/min/1.73m2 Severely decreased 15 - 29 mL/min/1.73m2 Kidney Failure < 15 mL/min/1.73m2 *Relative to young adult level Estimated glomerular filtration rate is determined by the 2020 CKD-EPI equation recommended by the National Kidney Foundation (A Unifying Approach to GFR Estimation: Recommendations of the NKF-ASK Task Force on Reassessing the Inclusion of Race in Diagnosing Kidney Disease, JASN 2020). The CKD-EPI equation should not be used for patients with unstable renal function and has not been validated in children and those over 70. Current interpretive data was last reviewed 2021. Testing performed by: [address], [address] Blood 04/15/2025 2:28 PM CDT 04/15/2025 8:52 PM CDT us Frances Riojas [facility] BLOOD ORDERABLES Final Res ult ANU NOBLE (LEDGER) 1 [facility] Department [place] [address] * Differential, auto (04/15/2025 2:28 PM CDT) Neutrophil abs 5.60 1.50 - 6.50 K/cumm Comment:Testing performed by : [address] [address] Imm gran abs 0.02 0.00 - 0.10 K/cumm [facility] (LEDGER) Comment:Testing performed by : [address], [address] Lymphocyte abs 1.14 0.80 - 3.30 K/cumm [facility] (LEDGER) Comment:Testing performed by : [address], [address] Monocyte abs 0.38 0.20 - 0.80 K/cumm [facility] (LEDGER) Comment:Testing performed by : [address], [address] Eosinophil abs 0.16 0.00 - 0.50 K/cumm [facility] (LEDGER) Comment:Testing performed by : [address], [place]., [address] Basophil abs 0.04 0.00 - 0.10 K/cumm [facility] (KORI) Comment:Testing performed by : [address] [address] Neutrophil pct 76.3 % CERNE R [facility] (KORI) Comment: Interpretive Data Percent cell count reference ranges are not reported, since discordance with absolute values may lead to misinterpretation of CBC data. Current Interpretive Data was last revised on 2018. Testing performed by: [facility], [address] [place] [address]., [address] Imm gran pct 0.3 % [facility] (KORI) Comment: Interpretive Data Percent cell count reference ranges are not reported, since discordance with absolute values may lead to misinterpretation of CBC data. Current Interpretive Data was last revised on 2018. Testing performed by: [address] [address] Lymphocyte pct 15.5 % [facility] (KORI) Comment: Interpretive Data Percent cell count reference ranges are not reported, since discordance with absolute values may lead to misinterpretation of CBC data. Current Interpretive Data was last revised on 2018. Testing performed by: [address] [address] Monocyte pct 5.2 % [facility] (KORI) Comment: Interpretive Data Percent cell count reference ranges are not reported, since discordance with absolute values may lead to misinterpretation of CBC data. Current Interpretive Data was last revised on 2018. Testing performed by: [address] [address] Eosinophil pct 2.2 % [facility] (KORI) Comment: Interpretive Data Percent cell count reference ranges are not reported, since discordance with absolute values may lead to misinterpretation of CBC data. Current Interpretive Data was last revised on 2018. Testing performed by: [address] [address] Basophil pct 0.5 % [facility] (KORI) Comment: Interpretive Data Percent cell count reference ranges are not reported, since discordance with absolute values may lead to misinterpretation of CBC data. Current Interpretive Data was last revised on 2018. Testing performed by: [facility], [address] [place] [address]., [address] Blood 04/15/2025 2:28 PM CDT 04/15/2025 2:29 PM CDT us Frances Riojas [facility] BLOOD ORDERABLES Final Res ult ANU NOBLE (LEDGER) 1 [facility] Department [place] [address] * (ABNORMAL) Urinalysis reflex to microscopic and culture Urine, clean voided (04/15/2025 2:28 PM CDT) Color, ur Yellow Yellow Comment:Testing performed by : [address] [address] Clarity, ur Clear Clear ANU DOVE (KORI) Comment:Testing performed by : [address] [address] Specific gravity, ur 1.028 1.003 - 1.030 ANU NOBLE (KORI) Comment:Testing performed by : [address] [address] pH, urine 5.5 ANU NOBLE (KORI) Comment: Interpretive Data U rine pH is affected by diet, medications, systemic acid-base disturbances, and renal tubular function. pH may affect urinary stone formation. For example, urine pH below 6.0 may help reduce the tendency for calcium phosphate stones and pH greater than 6.0 may reduce the tendency for uric acid stone formation. Source: [facility] [employer] Current Interpretive Data was last revised on 2017 Testing performed by: [facility], [address] [place] [address]., [address] Protein, ur ql Trace Negative CERNE R AIDE (KORI) Comment:Testing performed by : [address] [address] Glucose, ur ql Negative Negative CERNE R AIDE (KORI) Comment:Testing performed by : [address] [address] Ketones, ur Negative Negative ANU DOVE (KORI) Comment:Testing performed by : [facility], [address] [place] [address]., [address] Bilirubin, ur Negative Negative ANU NOBLE (KORI) Comment:Testing performed by : [facility], [address] [place] [address]., [address] Blood, ur Negative Negative ANU NOBLE (KORI) Comment:Testing performed by : [address], [address] Urobilinogen, ur 2.0(A) <2.0 mg/dL ANU NOBLE (KORI) Comment:Testing performed by : [address], [address] Nitrite, ur Negative Negative ANU Edwards (KORI) Comment:Testing performed by : [address], [address] Leukocyte esterase, ur Negative Negative ANU NOBLE (KORI) Comment:Testing performed by : [address], [address] UA reflex comment Reflex conditions for microscopic UA and culture not met. ANU NOBLE (KORI) Comment:Testing performed by : [address], [address] Urine, clean voided 04/15/2025 2:28 PM CDT 04/15/2025 2:30 PM CDT us Frances Riojas [facility] MICROBIOLOGY - GENERAL ORD ERABLES Final Result ANU NOBLE (KORI) 1 [facility] Department [place] [address] * (ABNORMAL) CBC with auto differential (04/15/2025 2:28 PM CDT) WBC 7.34 3.80 - 9.90 K/cumm Comment:Testing performed by : [address], [address] Hgb 13.2 13.0 - 17.5 g/dL ANU NOBLE (KORI) Comment:Testing performed by : [address], [address] Hct 41.3 38.9 - 50.3 % [facility] (KORI) Comment:Testing performed by : [facility], [address] [place] [address], [address] Plt 248 150 - 400 K/cumm [facility] (KORI) Comment:Testing performed by : [facility], [address] [place] [address], [address] MPV 9.6 9.1 - 12.3 fL [facility] (KORI) Comment:Testing performed by : [address], [address] RBC 3.98(L) 4.30 - 5.80 M/cumm [facility] (KORI) Comment:Testing performed by : [address], [address] MCV 103.8(H) 81.3 - 96.4 fL [facility] (KORI) Comment:Testing performed by : [address], [address] MCH 33.2 27.1 - 33.3 pg [facility] (KORI) Comment:Testing performed by : [address], [address] MCHC 32.0(L) 32.3 - 35.7 g/dL [facility] (KORI) Comment:Testing performed by : [address], [address] RDW CV 14.6 11.1 - 14.9 % [facility] (KORI) Comment:Testing performed by : [address], [address] RDW SD 56.4(H) 35.7 - 48.1 fL [facility] (KORI) Comment:Testing performed by : [address], [address] NRBC abs 0.00 0.00 - 0.01 K/cumm [facility] (KORI) Comment:Testing performed by : [address], [address] Blood 04/15/2025 2:28 PM CDT 04/15/2025 2:29 PM CDT Frances J. Shine [facility] BLOOD ORDERABLES Final Res ult Performing Organization Address [facility]/ZIP Co de Phone Number ANU NOBLE (LEDGER) [address] [place] [address] * (ABNORMAL) Vitamin D 25 hydroxy (04/15/2025 2:28 PM CDT) Vitamin D 25-OH 24(L) 30 - 80 ng/mL Comment:Testing performed by : [facility], [address] [place] [address], [address] Blood 04/15/2025 2:28 PM CDT 04/15/2025 2:28 PM CDT Frances Riojas [facility] BLOOD ORDERABLES Final Res ult Performing Organization Address [facility] Co de Phone Number ANU NOBLE (LEDGER) [address] [place] [address] * TSH (04/15/2025 2:28 PM CDT) Pathologist [facility] [place] Thyroid Stimulating Hormone 3.39 0.30 - 4.20 mcIUnit/mL Comment:Testing performed by : [address], [address] Blood 04/15/2025 2:28 PM CDT 04/15/2025 2:29 PM CDT Frances Riojas [facility] BLOOD ORDERABLES Final Res ult Performing Organization Address [facility] Co de Phone Number NAU NOBLE (LEDGER) [address] [place] [address] * T4, free (04/15/2025 2:28 PM CDT) Free T4 1.10 0.90 - 1.70 ng/dL Comment:Testing performed by : [address], [address] Blood 04/15/2025 2:28 PM CDT 04/15/2025 2:29 PM CDT Frances Riojas [facility] BLOOD ORDERABLES Final Res ult ANU NOBLE (KORI) 1 [facility] [place] [address] * Total testosterone (04/15/2025 2:28 PM CDT) Testosterone 247 193 - 740 ng/dL Comment:Testing performed by : [facility], [address] [place] [address], [address] Blood 04/15/2025 2:28 PM CDT 04/15/2025 2:29 PM CDT Frances Riojas [facility] BLOOD ORDERABLES Final Res ult Performing Organization Address [facility] Co de Phone Number ANU NOBLE (LEDGER) [address] [place] [address] * PSA diagnostic (04/15/2025 2:28 PM CDT) PSA-Total 0.10 <=6.20 ng/mL Comment: Interpretive Data AGE SEX REFERENCE INTERVAL 0 minutes-150 years Female None 0 minutes-49 years Male None 50-59 years Male 0-3.90 60-69 years Male 0-5.40 70-79 years Male 0-6.20 80-150 years Male 0-6.20 The He PSA Total assay procedure was used. Results from different manufacturers or methods may not be comparable. Serial testing should be performed using the same method. Current interpretive data last revised 22. Testing performed by: [facility], [address] [place] [address]., [address] Blood 04/15/2025 2:28 PM CDT 04/15/2025 2:29 PM CDT Frances Riojas [facility] BLOOD ORDERABLES Final Res ult Performing Organization Address City/[facility]/ZIP Co de Phone Number ANU NOBLE (LEDGER) 1 [facility] [place] [address] * Cholesterol, LDL, direct (04/15/2025 2:28 PM CDT) LDL Cholesterol, Direct 111 <=129 mg/dL Comment: Interpretive Data Ages < or = 19 years Acceptable: <110 mg/dL Borderline high: 110-129 mg/dL High: >or= 130 mg/dL Ages > or = 20 years Optimal: <100 mg/dL Near optimal: 100-129 mg/dL Borderline high: 130-159 mg/dL High: >160 mg/dL Literature References: 1. Expert Panel on Integrated Guidelines for Cardiovascular Health and Risk Reduction in Children and Adolescents. Pediatrics 2011;128:S213 2. NCEP Expert Panel. Circulation 2004;110:227 Current Interpretive Data was last revised on 2018. Testing performed by: [address] [address] Blood 04/15/2025 2:28 PM CDT 04/15/2025 2:29 PM CDT us Frances Riojas [facility] BLOOD ORDERABLES Final Res ult ANU NOBLE (LEDGER) 1 [facility] [place] [address] * (ABNORMAL) Lipid panel (04/15/2025 2:28 PM CDT) Cholesterol 172 30 - 199 mg/dL Comment: Interpretive Data Ages < or = 19 years Acceptable: <170 mg/dL Borderline high: 170-199 mg/dL High: >or= 200 mg/dL Ages > or = 20 years Desirable: <200 mg/dL Borderline high: 200-239 mg/dL High: >or= 240 mg/dL Literature References: 1. Expert Panel on Integrated Guidelines for Cardiovascular Health and Risk Reduction in Children and Adolescents. Pediatrics 2011;128:S213 2. NCEP Expert Panel. Circulation 2004;110:227 Current Interpretive Data was last revised on 2018. Testing performed by: [facility], [address] [place] [address]., [address] Triglycerides 170(H) <=149 mg/dL ANU NOBLE (KORI) Comment: Interpretive Data Ages < or = 9 years Acceptable: <75 mg/dL Borderline high: 75-99 mg/dL High: >or= 100 mg/dL Ages 10 to 20 years Acceptable: <90 mg/dL Borderline high: 90-129 mg/dL High: >or= 130 mg/dL Ages > or = 20 years Desirable: <150 mg/dL Borderline high: 150-199 mg/dL High: 200-499 mg/dL Very high: >or= 499 mg/dL Literature References: 1. Expert Panel on Integrated Guidelines for Cardiovascular Health and Risk Reduction in Children and Adolescents. Pediatrics 2011;128:S213 2. NCEP Expert Panel. Circulation 2004;110:227 Current Interpretive Data was last revised on 2018. Testing performed by: [facility], [address] [place] [address]., [address] HDL 42 >=40 mg/dL ANU NOBLE (KORI) Comment: Interpretive Data Ages < or = 19 years Acceptable: >45 mg/dL Borderline low: 40-45 mg/dL Low: <40 mg/dL Ages > or = 20 years Desirable: >or= 60 mg/dL Low: <40 mg/dL Literature References: 1. Expert Panel on Integrated Guidelines for Cardiovascular Health and Risk Reduction in Children and Adolescents. Pediatrics 2011;128:S213 2. NCEP Expert Panel. Circulation 2004;110:227 Current Interpretive Data was last revised on 2018. Testing performed by: [facility], [address] [place] [address]., [address] LDL, calculated 100 <=129 mg/dL ANU NOBLE (KORI) Comment: Interpretive Data Ages < or = 19 years Acceptable: <110 mg/dL Borderline high: 110-129 mg/dL High: >or= 130 mg/dL Ages > or = 20 years Optimal: <100 mg/dL Near optimal: 100-129 mg/dL Borderline high: 130-159 mg/dL High: >160 mg/dL Calculated using the Do LDL-C estimating equation. This equation was implemented on 2024. Prior to this date LDL-C was estimated using the Friedewald equation. Literature References: 1. Expert Panel on Integrated Guidelines for Cardiovascular Health and Risk Reduction in Children and Adolescents. Pediatrics 2011;128:S213 2. NCEP Expert Panel. Circulation 2004;110:227 3. Hi M et al. BARRY Cardiol. 2020 February 04;5(5):540-548. doi: [email or web address] Current Interpretive Data was last revised on 2024. Testing performed by: [address] [address] Non-HDL Cholesterol 130 mg/dL ANU NOBLE (KORI) Comment: Interpretive Data Ages < or = 19 years Acceptable: <120 mg/dL Borderline high: 120-144 mg/dL High: >145 mg/dL Ages > or = 20 years When triglycerides are >200 mg/dL, Non-HDL cholesterol is a secondary target of therapy with treatment goals that are 30 mg/dL greater than the LDL cholesterol target. Literature References: 1. Expert Panel on Integrated Guidelines for Cardiovascular Health and Risk Reduction in Children and Adolescents. Pediatrics 2011;128:S213 2. NCEP Expert Panel. Circulation 2004;110:227 Current Interpretive Data was last revised on 2018. Testing performed by: [address] [address] Chol/HDL ratio 4 MARSHAL NOBLE (KORI) Comment:Testing performed by : [address] [address] Blood 04/15/2025 2:28 PM CDT 04/15/2025 2:29 PM CDT us Frances Riojas [facility] BLOOD ORDERABLES Final Res ult ANU NOBLE (KORI) 1 [facility] [place] [address] * (ABNORMAL) Comprehensive metabolic panel (04/15/2025 2:28 PM CDT) [facility] Sodium 140 135 - 145 mmol/L Comment:Testing performed by : [address] [address] Potassium, pl 3.8 3.3 - 4.9 mmol/L ANU NOBLE (KORI) Comment:Testing performed by : [address] [place]., [address] Chloride 106 97 - 110 mmol/L [facility] (KORI) Comment:Testing performed by : [facility], [address] [place] [address]., [address] CO2 19(L) 22 - 32 mmol/L [facility] (KORI) Comment:Testing performed by : [facility], [address] [place] [address], [address] Anion gap 15 2 - 15 mmol/L [facility] (KORI) Comment:Testing performed by : [facility], [address] [place] [address], [address] BUN 18 6 - 25 mg/dL [facility] (KORI) Comment:Testing performed by : [address], [address] Creatinine 1.11 0.80 - 1.30 mg/dL [facility] (KORI) Comment:Testing performed by : [address], [address] Glucose 156 70 - 199 mg/dL [facility] (KORI) Comment: Interpretive Data Fasting glucose >/= 126 mg/dl is diagnostic for diabetes. Fasting is defined as no caloric intake for at least 8 hours. Fasting glucose between 100 mg/dl to 125 mg/dl is diagnostic of prediabetes. In a patient with classic symptoms of hyperglycemia or hyperglycemic crisis, a random glucose >/= 200 mg/dl is diagnostic for diabetes. In the absence of unequivocal hyperglycemia, results should be confirmed by repeat testing. The classification and Diagnosis of Diabetes Diabetes Care 2021; 46: S19-S40. Current interpretive data was last revised 2022. Testing performed by: [facility], [address] [place] [address]., [address] Calcium 9.3 8.5 - 10.3 mg/dL [facility] (KORI) Comment:Testing performed by : [address] [address] Bilirubin, total 0.4 0.1 - 1.2 mg/dL [facility] (KORI) Comment:Testing performed by : [address], [address] Protein, pl 6.8 6.5 - 8.5 g/dL [facility] (KORI) Comment:Testing performed by : [facility], [address] [place] [address]., [address] Albumin 4.1 3.5 - 5.0 g/dL [facility] (KORI) Comment:Testing performed by : [facility], [address] [place] [address]., [address] Alk phos 93 40 - 130 Units/L [facility] (KORI) Comment:Testing performed by : [facility], [address] [place] [address], [address] ALT 15 7 - 55 Units/L [facility] (KORI) Comment:Testing performed by : [facility], [address] [place] [address], [address] AST 32 10 - 50 Units/L [facility] (KORI) Comment:Testing performed by : [facility], [address] [place] [address], [address] Blood 04/15/2025 2:28 PM CDT 04/15/2025 2:29 PM CDT Frances Riojas [facility] BLOOD ORDERABLES Final Res ult [facility] (LEDGER) 1 [facility] Department [place] [address] * DEVICE CHECK - REMOTE (04/02/2025 1:25 PM CDT) Anatomical Region Laterality Modality Other 04/02/2025 1:25 PM CDT Narrative 04/03/2025 1:04 PM CDT Interpretation Summary: Battery and Leads (BL) Normal parameters noted on battery and lead(s) --- 6.7 yrs remaining longevity (implanted 2023). Lead impedance and RV/LV threshold trends stable and appropriate. No short V-V intervals. Presenting Rhythm (IL) BiVentricular Pacing (BiVP) --- BVP 86 bpm. Arrhythmic events (AE) Device programmed VVIR, suggesting longstanding persistent atrial fibrillation or flutter --- Pt is s/p AVJ Ablation. Nonsustained VT event(s) identified --- Since 01/05/25: One VT-NS detection, with EGM appearing to show NSVT, 100 to 176 bpm. Anticoagulation (AC) Patient is status-post left atrial appendage occlusion device Patient is not on anticoagulant therapy Miscellaneous Observations (MISC) Pacing dependence in the Ventricle Transmission Information (TI) Device Summary Report Follow Up (FU) Patient's primary treating physician will be apprised of findings Procedure Note Leo Barney MD - 04/03/2025 Interpretation Summary: Battery and Leads (BL) Normal parameters noted on battery and lead(s) --- 6.7 yrs remaininglongevity (implanted 2023). Lead impedance and RV/LV threshold trendsstable and appropriate. No short V-V intervals. Presenting Rhythm (IL) BiVentricular Pacing (BiVP) --- BVP 86 bpm. Arrhythmic events (AE) Device programmed VVIR, suggesting longstanding persistent atrialfibrillation or flutter --- Pt is s/p AVJ Ablation. Nonsustained VT event(s) identified --- Since 01/05/25: One VT-NSdetection, with EGM appearing to show NSVT, 100 to 176 bpm. Anticoagulation (AC) Patient is status-post left atrial appendage occlusion device Patient is not on anticoagulant therapy Miscellaneous Observations (MISC) Pacing dependence in the Ventricle Transmission Information (TI) Device Summary Report Follow Up (FU) Patient's primary treating physician will be apprised of findings Leo Barney MD [facility] Final Result * Surgical pathology (03/30/2025 12:00 AM CDT) Skin, excision 03/30/2025 03/31/2025 7:24 AM CDT Narrative 04/01/2025 2:18 PM CDT [facility] results best viewed via link to PDF [facility] [facility], [address], [place] [address] [email or web address] Note to Patients: This report may contain a detailed description of human tissue sent by a health care provider to the laboratory for pathologic evaluation. The content of this report is essential for diagnosis and may provide important critical findings. This information may be unfamiliar to patients to review without a medical professional present. It is advised that the patient review this report in the presence of a health care provider who can answer questions and explain the details. FINAL REPORT Patient Information: PATIENT NAME: DAPHNEY WYATT SEX: M : 1950 (Age: 74) Specimen Information: COLLECTED: 03/30/2025 RECEIVED: 03/31/2025 REPORTED: 04/01/2025 Submitting Physician Information: Sho Weber M.D. [facility], [address] [place] [address], DERMATOPATHOLOGY REPORT RESULTS DIAGNOSIS: A. SKIN, LEFT ANTERIOR EARLOBE DEBULK, STAGED EXCISON: SCAR FROM A PREVIOUS PROCEDURE Note: There is no evidence of a neoplasm in these sections. B. SKIN, LEFT ANTER EARLOBE, 9-12 O'CLOCK, STAGED EXCISION: SOLAR ELASTOSIS Note: There is no evidence of a neoplasm in these sections. C. SKIN, LEFT ANTERIOR EARLOBE, 12-3 O'CLOCK, STAGED EXCISION: SOLAR ELASTOSIS Note: There is no evidence of a neoplasm in these sections. D. SKIN, LEFT ANTERIOR EARLOBE , 3-6 O'CLOCK, STAGED EXCISION: SOLAR ELASTOSIS Note: There is no evidence of a neoplasm in these sections. E. SKIN, LEFT ANTERIOR EARLOBE, 6-9 O'CLOCK, STAGE EXCISION: SOLAR ELASTOSIS Note: There is no evidence of a neoplasm in these sections. sxt/lac By this signature, I attest that the above diagnosis is based upon my personal examination of the slides(and/or other material indicated in the diagnosis). Perla Mcdaniel M.D. Report Electronically Reviewed and Signed Out By Perla Mcdaniel M.D. 04/01/2025 14:18:02 CLINICAL INFORMATION A-E. MELANOMA IN SITU SPECIMEN DATA MICROSCOPIC DESCRIPTION: A. There is a proliferation of fibroblasts aligned parallel to the skin surface interposed among linearly arranged, thickened collagen bundles and small blood vessels. (L90.5) B-E. There is abundant, blue elastotic material within the upper part of the dermis. (L57.8) GROSS DESCRIPTION: Received in 5 containers of formalin are 5 pieces of pale rhodes, finely scaling, hair-bearing skin and adipose tissue that correspond to the furnished diagram. Container A consists of the central debulk portion that measures 0.5 by 0.4 by 0.2 cm. The specimen bears a centrally located, pink-rhodes, scaly area measuring 0.2 by 0.2 cm. This piece is serially sectioned into 2 pieces and entirely submitted in a single cassette. Due to shrinkage, measurements may be different than those at time of procedure. Container B consists of the 9-12 o c lock portion that measures 1.0 by 0.6 by 0.3 cm and has been differentially inked yellow, and blue by the submitting physician. This piece is entirely submitted in cassette B1 for horizontal sectioning. Due to shrinkage, measurements may be different than those at time of procedure. Container C consists of the 12-3 o c lock portion that measures 1.2 by 0.9 by 0.3 cm and has been differentially inked blue, and red by the submitting physician. This piece is entirely submitted in cassette C1 for horizontal sectioning. Due to shrinkage, measurements may be different than those at time of procedure. Container D consists of the 3-6 o c lock portion that measures 1.0 by 0.7 by 0.3 cm and has been differentially inked red, and green by the submitting physician. This piece is entirely submitted in cassette D1 for horizontal sectioning. Due to shrinkage, measurements may be different than those at time of procedure. Container E consists of the 6-9 o c lock portion that measures 0.9 by 0.7 by 0.3 cm and has been differentially inked green, and yellow by the submitting physician. This piece is entirely submitted in cassette E1 for horizontal sectioning. Due to shrinkage, measurements may be different than those at time of procedure. alvino/mxf ICD-9 ZSD.1387 Clerical Data A; 79362 B; 93453 C; 02461 D; 84438 E; 18076 The characteristics of special, immunohistochemical, and immunofluorescence stains and in-situ hybridization tests performed by the [facility] were deemed acceptable in ongoing water quality tester measures and in compliance with regulations drawn from the Clinical Laboratory Improvement Act ze2460 (CLIA '88). Control reactions for all stains performed were deemed adequate and appropriate by a pathologist prior to evaluation of patient tissue. Some diagnoses were rendered with the assistance of laboratory-developed tests utilizing analyte-specific reagents; the performance characteristic of these tests were determined by [facility] and are not cleared or approved by the [place] Food an Drug administration. Laboratory developed test may only be performed in a facility that is certified by the [facility] as a high-complexity laboratory under CLIA '88. These tests are used for clinical purposes and are not investigational. Sho Weber MD LAB PATHOLOGY ORDER MARIA LUISA Final Result * Colonoscopy (07/01/2024 11:20 AM CDT) Anatomical Region Laterality Modality Other Narrative Procedure Note Carrie Woodall MD - 07/01/2024 11:20 AM CDT [facility] Patient Name: Daphney Wyatt Procedure Date: 07/01/2024 11:20 AM Date of : 1950 Admit Type: Outpatient Age: 73 Gender: Male Attending MD: Carrie Woodall M.D. Room: [facility]COPY RO[facility] 1 Note Status: Finalized Patient Profile: This is a 73 year old male. History of colonpolyps. Noted complaints of constipation and periods of diarrhea and irregular bowel movements. No family history of colon cancer. Procedure: Colonoscopy Indications: High risk colon cancer surveillance: Personalhistory of colonic polyps, Last colonoscopy: June2019 Referring MD: Jeremías Hopkins M.D. Providers: Carrie Woodall M.D. Impression: - Random colon biopsy performed. - Diverticulosis in the sigmoid colon. - One 5 mm polyp in the distal sigmoid colon,removed with a jumbo cold forceps. Resected andretrieved. - Internal hemorrhoids. Recommendation: - Continue present medications. - Await pathology results. - Repeat colonoscopy in 5 years for surveillance. Medicines: Monitored Anesthesia Care Complications: No immediate complications. Estimated Blood Loss: Estimated blood loss: none. Procedure: Pre-Anesthesia Assessment: - Prior to the procedure, a History and Physicalwas performed, and patient medications and allergieswere reviewed. The patient's tolerance of previous anesthesia was also reviewed. The risks andbenefits of the procedure and the sedation options and risks were discussed with the patient. All questions were answered, and informed consent was obtained. Prior Anticoagulants: The patient has taken noanticoagulant or antiplatelet agents. ASA Grade Assessment: III -A patient with severe systemic disease. Afterreviewing the risks and benefits, the patient was deemed in satisfactory condition to undergo the procedure. - Prior to the procedure, a History and Physicalwas performed, and patient medications and allergieswere reviewed. The patient's tolerance of previous anesthesia was also reviewed. The risks andbenefits of the procedure and the sedation options and risks were discussed with the patient. All questions were answered, and informed consent was obtained. Prior Anticoagulants: The patient has taken noanticoagulant or antiplatelet agents. ASA Grade Assessment: III -A patient with severe systemic disease. Afterreviewing the risks and benefits, the patient was deemed in satisfactory condition to undergo the procedure. The benefits, risks and alternatives of theprocedure and sedation were discussed and informed consentwas obtained. All questions were answered. Please referto the signed informed consent document in the medical record. The bowel preparation used was Miralax and bisacodyl tablets via split dose instruction. The scope was passed under direct vision. The Pediatric Colonoscope PCF-H190L [id number] was introducedthrough the anus and advanced to the the cecum, identifiedby appendiceal orifice and ileocecal valve. Thequality of the bowel preparation was good. Bowel prep was administered using a split dose. Findings: The perianal and digital rectal examinations were normal. The cecum appeared normal. The descending colon, transverse colon and ascending colon appeared normal. Biopsies were taken with a cold forceps for histology. Many small-mouthed diverticula were found in the sigmoid colon. A 5 mm polyp was found in the distal sigmoid colon. The polyp was semi-sessile. The polyp was removed with a jumbo cold forceps.Resection and retrieval were complete. Internal hemorrhoids were found during retroflexion. The hemorrhoids were small. Electronically signed by Carrie Woodall M.D. Carrie Woodall M.D. 07/01/2024 2:20:40 PM Number of Addenda: 0 Note Initiated On: 07/01/2024 11:20 AM Procedure Code(s): --- Professional --- 51190, Colonoscopy, flexible; with biopsy, single or multiple Diagnosis Code(s): --- Professional --- Z86.010, Personal history of colonic polyps K64.8, Other hemorrhoids D12.5, Benign neoplasm of sigmoid colon K57.30, Diverticulosis of large intestine without perforation orabscess without bleeding CPT copyright 2020 [employer]. All rights reserved. The codes documented in this report are preliminary and upon event marketing representative reviewmay be revised to meet current compliance requirements. Recognized by the [employer] for promoting quality in endoscopy us Carrie Woodall MD ENDOSCOPY PROCEDURES Final Result * CT Abdomen Pelvis W Contrast (01/24/2024 10:55 AM CDT) Anatomical Region Laterality Modality Body N/A Computed Tomogra phy 01/24/2024 11:0 2 AM CDT Narrative 01/24/2024 11:07 AM CDT EXAM DESCRIPTION: CT ABDOMEN PELVIS W CONTRAST REASON FOR STUDY: Abdominal infection suspected, large stool plug, ?? obstruction Rectal pain for 3 days and unable to have bowel movement Hx of cholecystectomy TECHNIQUE: CT scan of the abdomen and pelvis performed with intravenous and without oral contrast using helical scanning technique with dynamic intravenous contrast injection. Reconstructed coronal and sagittal MPR images reviewed. All images stored on PACS. Automated exposure control was used as a dose optimization technique for this examination. CONTRAST TYPE/DOSE: 75mL of IOVERSOL 350 MG IODINE/ML INTRAVENOUS SYRINGE injected via intravenous COMPARISON: 12/20/2023. FINDINGS: LOWER CHEST: Lung bases are predominantly clear. There is no pleural effusion. LIVER: Liver size and contour normal. Granulomatous calcification noted in the liver. The portal and hepatic veins are patent. GALLBLADDER: No gallstones or overt inflammatory change. BILE DUCTS: No biliary ductal dilation. SPLEEN: Spleen size is normal. No focal splenic lesion. PANCREAS: No pancreatic mass or inflammatory change. ADRENALS: Normal. KIDNEYS/URINARY TRACT: No right renal calculus. No left renal calculus. No ureteral calculus. There is no hydronephrosis or hydroureter. Fluid is present urinary bladder. No urinary bladder mass or calculus. GI: No evidence of bowel obstruction. 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 No findings specifically to suggest internal hernia. The rectum is distended with fecal material, this is 7.8 cm transverse. There is some hazy presacral and perirectal stranding likely stercoral colitis. There is moderate sigmoid colon diverticulosis. Stomach and duodenal are normal. There is no pneumatosis. The appendix is normal. PERITONEUM: No ascites or free air. No mesenteric mass or lymphadenopathy. RETROPERITONEUM: No retroperitoneal mass or lymphadenopathy is seen. REPRODUCTIVE: No significant abnormalities. VASCULATURE: Abdominal aorta is nonaneurysmal. There is prominent vascular calcification at the origin of the celiac axis, SMA bilateral renal arteries. MUSCULOSKELETAL: Bone windows demonstrate no acute or aggressive osseous abnormality. OTHER: No other abnormality. IMPRESSION: Rectum distended with fecal material with hazy perirectal stranding likely stercoral colitis. No other acute abnormality of the abdomen and pelvis. Jere-en-Y gastric bypass. Moderate sigmoid colon diverticulosis. THIS IS AN ELECTRONICALLY VERIFIED FINAL REPORT 01/24/2024 11:07 AM - Electronically signed by Sergio Nicholas M.D. CH: TERESA Report ID: [id number] Reading Location: [id number] Procedure Note Sergio Nicholas Jr., MD - 01/24/2024 EXAM DESCRIPTION: CT ABDOMEN PELVIS W CONTRAST REASON FOR STUDY: Abdominal infection suspected, large stool plug, ?? obstruction Rectal pain for 3 days and unable to have bowel movement Hx of cholecystectomy TECHNIQUE: CT scan of the abdomen and pelvis performed with intravenousand without oral contrast using helical scanning technique with dynamic intravenous contrast injection. Reconstructed coronal and sagittal MPRimages reviewed. All images stored on PACS. Automated exposure control was usedas a dose optimization technique for this examination. CONTRAST TYPE/DOSE: 75mL of IOVERSOL 350 MG IODINE/ML INTRAVENOUSSYRINGE injected via intravenous COMPARISON: 12/20/2023. FINDINGS: LOWER CHEST: Lung bases are predominantly clear. There is no pleural effusion. LIVER: Liver size and contour normal. Granulomatous calcification notedin the liver. The portal and hepatic veins are patent. GALLBLADDER: No gallstones or overt inflammatory change. BILE DUCTS: No biliary ductal dilation. SPLEEN: Spleen size is normal. No focal splenic lesion. PANCREAS: No pancreatic mass or inflammatory change. ADRENALS: Normal. KIDNEYS/URINARY TRACT: No right renal calculus. No left renal calculus.No ureteral calculus. There is no hydronephrosis or hydroureter. Fluid is present urinary bladder. No urinary bladder mass or calculus. GI: No evidence of bowel obstruction. There are postsurgical changesfrom Jere-en-Y gastric bypass. No findings specifically to suggest internal hernia. The rectum is distended with fecal material, this is 7.8 cm transverse. There is some hazy presacral and perirectal stranding likely stercoral colitis. There is moderate sigmoid colon diverticulosis.Stomach and duodenal are normal. There is no pneumatosis. The appendix isnormal. PERITONEUM: No ascites or free air. No mesenteric mass orlymphadenopathy. RETROPERITONEUM: No retroperitoneal mass or lymphadenopathy is seen. REPRODUCTIVE: No significant abnormalities. VASCULATURE: Abdominal aorta is nonaneurysmal. There is prominentvascular calcification at the origin of the celiac axis, SMA bilateral renalarteries. MUSCULOSKELETAL: Bone windows demonstrate no acute or aggressive osseous abnormality. OTHER: No other abnormality. IMPRESSION: Rectum distended with fecal material with hazy perirectal strandinglikely stercoral colitis. No other acute abnormality of the abdomen and pelvis. Jere-en-Y gastric bypass. Moderate sigmoid colon diverticulosis. THIS IS AN ELECTRONICALLY VERIFIED FINAL REPORT 01/24/2024 11:07 AM - Electronically signed by Sergio Nicholas M.D. CH: TERESA Report ID: [id number] Reading Location: [id number] Daphney Grossman MD IMG CT PROCEDURES Final Res ult * Hepatitis panel, acute (02/20/2021 3:59 PM CDT) Hep A IgM Nonreactive Nonreactive [facility] ([facility]) Comment: Interpretive Data: If Hep A IgM Ab is reported as Equivocal, a new sample should be drawn in two weeks for testing. Current interpretive data was last revised on 19. Testing performed by: [address] [address] Hep B core IgM Nonreactive Nonreactive [facility] ([facility]) Comment: Interpretive Data If HepB Core IgM Ab is reported as Equivocal, a new sample should be drawn in two weeks for testing. Current interpretive data was last revised on 19. Testing performed by: [facility], [address] [place] [address]., [id number] Hep C Ab Nonreactive Nonreactive [facility] ([facility]) Comment: Interpretive Data Nonreactive: Antibodies to HCV not detected. Does NOT exclude the possibility of recent exposure to HCV. Equivocal: Equivocal for HCV antibodies. Supplemental molecular testing will be automatically performed to determine infection status in accordance with current CDC screening recommendations. Reactive: Positive for HCV antibodies. This may represent current or past HCV infection. Supplemental molecular testing will be automatically performed to determine current infection status in accordance with current CDC screening recommendations. Interpretive data was last revised on 2019. Testing performed by: [address] [address] HepBsAg Nonreactive Nonreactive [facility] ([facility]) Comment:Testing performed by : [facility], [address] [facility], [place]., [address] Blood specimen (specimen) 02/20/2021 3:59 PM CDT 02/21/2021 9:59 AM CDT Narrative [facility] ([facility]) - 02/21/2021 11:08 AM CDT Non fasting Jesús Grimaldo MD LAB MICROBIOLOGY - GENERAL ORD ERABLES Final Result [facility] ([facility]) [facility] Department [place] [address] from Last 3 Months or Most Recently Relevant to Health Maintenance Insurance [address] [place] [facility] MEDICARE HMO PPO MEDICARE ViRTUAL INTERACTiVE OOS [address] [place] [facility] MEDICARE HMO PPO Advance Directives For more information, please contact: [phone] * Full Code (Latest Code Status on File) Date Activated Date Inactivated Comments 08/25/2024 5:29 PM 08/28/2024 9:20 PM * Full Code Date Activated Date Inactivated Comments 07/01/2024 11:15 AM 07/01/2024 6:47 PM * Full Code Date Activated Date Inactivated Comments 07/01/2024 11:15 AM 07/01/2024 11:15 AM * Full Code Date Activated Date Inactivated Comments 01/24/2024 4:12 PM 01/25/2024 9:00 PM * Full Code Date Activated Date Inactivated Comments 12/12/2023 8:03 PM 12/16/2023 4:50 PM Care Teams [facility] [employer] Relationship Specialty Start Date End Date Jeremías Hopkins MD [address] [place] [address] PCP - General Internal Medicine 03/23/22 Italia Mclaughlin MD [address] [place] [address], [place] [address] Consulting Physician Interventional Cardiology 07/02/18 Bubba Hernandez NP [address] [place] [address] [address] [place] [address] Nurse Practitioner Nurse Practitioner 05/17/21
--- OUTSIDE RECORDS SUMMARY | 2025-04-26 12:06 | XMS_ITS | Clinical Summary ---
Author Organization [facility] Address [address] [place] [address] Care Team Providers Care Food Tester Name Role Phone Italia Mclaughlin MD Unavailable [phone] Bubba Hernandez NP Unavailable [phone] Jeremías Hopkins MD Primary Care Provider + Allergies Active Allergy Reactions Criticality Noted Date [...] 1 tablet (88 mcg total) by mouth metal weigher before breakfast Active rosuvastatin (CRESTOR) 40 mg [...] 08/26/2024 Assessment & Plan (08/27/2024 11:14 AM SUPERINTENDENT PLANT): -baseline cr ~1.2, admission cr 1.6, now improved to 1.39 -unclear etiology of CHARY, potentially due to mild volume overload but improved prior to receiving diuretics -monitor bmp -avoid nephrotoxins Assessment & Plan (08/26/2024 2:29 PM SUPERINTENDENT PLANT): -baseline cr ~1.2, currently 1.6 -unclear etiology [...] Saturday. Will follow up with his local window glazier helper regarding ongoing MCKEON. Follow up in 1 year for 2 year Watchman follow up. Chronic diarrhea 01/06/2024 Gastroesophageal reflux disease without esophagi tis 01/06/2024 Tubular adenoma of colon 01/06/2024 Nonrheumatic tricuspid valve regurgitation 08/17 Chronic fatigue 08/16/2022 Overview (08/16/2022): Added automatically from request for surgery [id number] Heart failure with mid-range ejection fraction ( HFmEF) 03/27/2022 Assessment & Plan (08/27/2024 11:12 AM SUPERINTENDENT PLANT): Mixed cardiomyopathy, HFmEF, most recent echo 04/2024 [...] wt Assessment & Plan (08/26/2024 2:15 PM SUPERINTENDENT PLANT): Mixed cardiomyopathy, HFmEF, most recent echo 04/2024 [...] 09/20/2021 Assessment & Plan (08/27/2024 1:21 PM SUPERINTENDENT PLANT): `Tsh 6.67, Free t4 1.39 -cont home levothyroxine 88mcg po daily Assessment & Plan (08/26/2024 1:44 PM SUPERINTENDENT PLANT): `Tsh 6.67, Free t4 1.39 -cont home [...] (02/08/2021): Added automatically from request for surgery [id number] Chronic cholecystitis 01/10/2021 Assessment & Plan (01/26/2021 [...] fibrillation 10/31/2017 Coronary artery disease invo lving pauma coronary artery of pauma heart without angina pectoris 07/25/2017 Assessment & Plan (08/27/2024 11:12 AM SUPERINTENDENT PLANT): History of multivessel CAD and prior MIs s/p PCI in 2004 at [facility] with RAFAELA to LAD and RCA, and mid LAD PCI/stent 09/2022 at [facility] -cont crestor -cont metoprolol Xl 50mg daily Assessment & Plan (08/25/2024 6:05 PM SUPERINTENDENT PLANT): History of multivessel CAD and prior MIs s/p PCI in 2004 at [facility] with RAFAELA to LAD and RCA, and mid LAD PCI/stent 09/2022 at [facility] -cont crestor -cont metoprolol Xl 50mg daily Assessment & Plan (03/27/2022 9:25 PM CDT): History of multivessel CAD with previous ID and PCI with RAFAELA to LAD and RCA -last [facility] in 2019 per notes with patent stents and 30% distal left main disease -he is currently free of anginal symptoms -continue ASA 81 mg and rosuvastatin 40 mg 3x per week -continue metoprolol XL 50 mg BID Assessment & Plan (02/14/2018 2:17 PM CDT): Continue aspirin, Crestor. Asymptomatic. Assessment & Plan (10/18/2017 2:33 PM SUPERINTENDENT PLANT): Continue Crestor. Add baby aspirin 81 mg daily. JIL (obstructive sleep apnea) 05/14/2017 Assessment & Plan (08/28/2024 9:18 AM SUPERINTENDENT PLANT): S/p Gastric bypass 2005 -Does not wear cpap since weight loss at home but has been using since here Assessment & Plan (08/25/2024 5:49 PM SUPERINTENDENT PLANT): S/p Gastric bypass 2004 -Does not wear cpap since weight loss Assessment & Plan (03/27/2022 9:30 PM CDT): Previously on CPAP but stopped using due to intolerance -continue JIL precautions -encourage to follow up outpatient for re-trial of CPAP Atrial fibrillation 02/20/2014 Overview (01/09/2017): Paroxysmal atrial fibrillation Assessment & Plan (08/28/2024 9:14 AM SUPERINTENDENT PLANT): History of paroxysmal a-fib, flutter. Hx Pulmonary [...] TSH 10.39 in April) -continue telemetry -successful DRESS CAP MAKER-P and AVJ RF ablation 08/27 Assessment & Plan (08/26/2024 1:43 PM SUPERINTENDENT PLANT): History of paroxysmal a-fib, flutter. Hx Pulmonary [...] need for beta- helena with his primary window glazier helper. He should continue on anticoagulation with Pradaxa unless contraindication should arise. I will see him again in 3 months for regular follow-up after ablation. Assessment & Plan (11/11/2017 10:16 AM SUPERINTENDENT PLANT): Overall he is doing well, now 1 [...] symptoms. Assessment & Plan (10/18/2017 2:33 PM SUPERINTENDENT PLANT): Status post ablation a week ago. Continue Pradaxa, Tikosyn, beta-helena. Assessment & Plan (10/02/2017 2:32 PM SUPERINTENDENT PLANT): Stable with rate controlled today. Continue on sotalol as well as Pradaxa for anticoagulation purposes. Assessment & Plan (09/24/2017 2:43 PM SUPERINTENDENT PLANT): Stable with controlled rate office today. Patient [...] (03/14/2022): Added automatically from request for surgery [id number] Assessment & Plan (05/15/2024 2:42 PM CDT): [...] - If AF recurs despite amiodarone, recommend DRESS CAP MAKER-P and AV node ablation Assessment & Plan [...] At risk for amiodarone toxic ity with watermelon inspector use 01/26/2022 03/27/2022 Atrial fibrillation 08/09/2021 01/27/20 Overview (08/09/2021): Added automatically from request for surgery [id number] At high risk for bleeding 08/09/2021 Overview (08/09/2021): Added automatically from request for surgery [id number] Diarrhea of infectious origin 04/11/2021 08/21/2024 Weight loss 04/07/2021 01/09/2022 Biceps tendonitis, right 02/08/202102/2022 Overview (02/08/2021): Added automatically from request for surgery [id number] Chronic nausea 12/06/2020 01/09/2022 Overview (12/06/2020): Added automatically from request for surgery [id number] Biceps tendinitis of right upper extremity 11/22/2020 [...] (05/19/2019): Added automatically from request for surgery [id number] Premature atrial contractions 11/14/2018 04/25/2020 Mandibular abscess 10/21/2018 0 Parotitis, acute 04/10/2018 05/08/2018 Assessment & Plan (04/10/2018 11:15 AM CDT): Augmentin prescribed twice daily for full 10 day course along with probiotics omiw-tmk-ffagvgc, antipyretics with the avoidance of NSAIDs due to concurrent use of Pradaxa for paroxysmal AFib. Warm compresses, ingestion of sour foods like limit drops were also advised follow up here in a week if there is no improvement or certainly worsening of symptoms. High risk medication use 12/17/2017 Cervicalgia 12/17/2017 01/24/2018 BMI 30.0-30.9,adult 10/02/2017 10/17/19 18 Assessment & Plan (10/02/2017 2:32 PM SUPERINTENDENT PLANT): Recommended patient to continue to increase heart healthy diet with adequate fruits, vegetables, and plenty of water along with mild-moderate daily exercise as tolerated. MCKEON (dyspnea on exertion) 10/02/2017 Assessment & Plan (10/02/2017 2:41 PM SUPERINTENDENT PLANT): Considering he is near done with the [...] 18 Assessment & Plan (09/24/2017 2:35 PM SUPERINTENDENT PLANT): Recommended patient to continue to increase heart healthy diet with adequate fruits, vegetables, and plenty of water along with mild-moderate daily exercise as tolerated. Acute non-recurrent ethmoidal sinusitis 09/24/2017 10/17/2017 Assessment & Plan (10/02/2017 2:32 PM SUPERINTENDENT PLANT): Asymptomatic and resolved. Continue on Augmentin for the last 3 days of therapy as well as Flonase for the next 3 days as well and follow up as needed regarding condition Assessment & Plan (09/24/2017 2:41 PM SUPERINTENDENT PLANT): Recommended Augmentin 1 tablet twice daily for full 10 day course with food and certainly use of jszn-fhs-thtrlbs nasal spray such as Flonase. Close monitoring outpatient if symptoms do not seem to improve and certainly if they worsen advised follow up in office regarding condition. Cough with congestion of paranasal sinus 09/24/2017 10/17/2017 Assessment & Plan (09/24/2017 2:41 PM SUPERINTENDENT PLANT): Recommended tjpt-cex-mppajut Mucinex along with increased fluids an Tessalon Perles were also prescribed to help with cough suppression at night. If cough persists beyond treatment of ethmoid sinusitis advised to follow up in office regarding condition for further management Dizziness 09/24/2017 10/17/2017 Assessment & Plan (09/24/2017 2:42 PM SUPERINTENDENT PLANT): Patient notes the dizziness is been a problem for the last few months to which bridge painter helper as actually ordered a C-spine to see exact etiology causing his dizziness. I am sure vertigo is exacerbated somewhat by the sinusitis which I will treat today and certainly will touch base with him regarding dizziness after C- spine is completed for additional management if indicated Oral mucosal lesion 08/14/2017 10/17/19 18 Assessment & Plan (08/14/2017 7:56 AM SUPERINTENDENT PLANT): Patient demonstrates a thickening callus like scarring along the anterior lateral tongue on the left that appears to be caused by mechanical irritation from the rough edge of a tooth. This does not appear to be a neoplastic process. Recommend dental consultation to address the tooth. Patient can follow back up as needed. Hyperlipidemia 07/25/2017 03/27/2022 Assessment & Plan (10/18/2017 2:35 PM SUPERINTENDENT PLANT): Continue Crestor. 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 03/27/2017 10/13/2020 USP current use of antiarrhythmic drug 7 02/03/2018 Assessment & Plan (11/11/2017 10:18 AM SUPERINTENDENT PLANT): He is on Tikosyn 250 mcg twice [...] UNSPCF SLEEP APNEA Benign hypertension 02/20/2014 05/14/20 17 Overview (01/11/2017): BENIGN HYPERTENSION Postcholecystectomy diarrhea 08/21/2024 CHARY (acute kidney injury) Encounters Date Type Department Care Team Description 04/15/2025 2:25 PM CDT Lab [facility] [address] [place] [address] 04/02/2025 Orders Only [facility] [address] [facility] 8[address] [place] [address] [place] [address] Leo Barney MD 03/30/2025 Orders Only [facility] [address] [place] [address] Sho Weber MD from Last 3 Months Immunizations Immunization Administration Dates Next Due Influenza, [...] PPV23 05/13/2019 Tdap 08/16/2009,10/07/2005 ZOSTER Recombinant 01/22/2019,11/10/2018 Surgical History Surgery Date Site/Laterality Comments GASTRIC BYPASS 10/07/2005 - 10/06/2006 gastric bypass OTHER SURGICAL HISTORY sleep apnea: CAD with stents TOTAL KNEE ARTHROPLASTY Bilateral Total Knee Replacement OTHER SURGICAL HISTORY Rotator Cuff Repair 2 on R; 1 on L. CARPAL TUNNEL RELEASE Bilateral CARDIAC CATHETERIZATION CORONARY ANGIOPLASTY ABLATION OF AFIB FLUTTER COLONOSCOPY 04/23/2014 POLYPECTOMY SHOULDER SURGERY EYE SURGERY Bilateral cataract extraction CHOLECYSTECTOMY CARDIOVERSION 10/07/2020 - 10/06/2021 CATARACT EXTRACTION 2017 JOINT REPLACEMENT Both knees and right shoulder 2007 BARIATRIC SURGERY 2005 COLONOSCOPY 06/07/2019 - 07/06/2019 INSERT / REPLACE / REMOVE PACEMAKER 08/07/2024 - 09/05/2024 Medical History Medical History Date Comments Sleep apnea sleep apnea Hx Other Medical cardiac abalati on Osteoarthritis Osteoarthritis Hx Other Medical lumbar disc Hx Other Medical rectal pain/uri nary bhavani. Chronic coronary artery disease Coronary artery disease Atrial fibrillation (HCC) Rheumatoid arthritis (HCC) CAD (coronary artery disease) CHF (congestive heart failure) (HCC) Hyperlipidemia Colon polyp Diverticulosis Paroxysmal atrial fibrillation (HCC) 02/20/2014 Paroxysmal atrial fibrillation Mixed hyperlipidemia 07/25/2017 Chronic systolic congestive heart failure (HCC) 10/16/2017 Gout Anemia Myocardial infarction (HCC) x3 GERD (gastroesophageal reflux disease) Covid-19 Lung disease Covid 2020 Cardiac complication Benign prostatic hyperplasia 2007 Cataract Removed 2018 Heart disease 1996 Nausea and vomiting 01/06/2024 Family History Medical History Relation Name Comments Heart attack Brother 1 Sven Heart disease Brother 1 Sven Other Brother 1 Sven s/p heart trans plant, agent orange; Cause of : s/p heart transplant, agent orange COPD Brother 2 Peripheral vascular disease Brother 2 Obesity Brother 4 Osiel COPD Father COPD; Emphysema Father emphysema; Caus e of : emphysema defects Father's Brother defects Father's Sister Heart attack Mother Mother ID; Cause of De ath: ID Heart disease Mother Mother Heart disease; Hypertension Mother Mother Obesity Mother Mother Arthritis Other Blood Clot Other Cancer Other Gout Other Hypertension Other Lung disease Other Anesthesia problems Neg Hx Diabetes Neg Hx Diabetes mellit us; Malig Hypertension Neg Hx Malig Hyperthermia Neg Hx Pseudochol deficiency Neg Hx Relation Name Status Comments Brother 1 Sven (Age 60) Brother 2 Alive Brother 3 Alive Brother 4 Osiel Father (Age 79) Father's Brother Father's Sister Mother Mother (Age 59) Other Social History Tobacco Use Types Packs/Day Years Used Date Smoking Tobacco: Former Cigarettes 1.5 36.5 1 960 - 04/25/1996 Smokeless Tobacco: Former Chew Quit: 10/21/1995 Alcohol Use Standard Drinks/Week Comments No 0 (1 standard drink = 0.6 oz pur e alcohol) [facility] Utilities Answer Date Recorded In the past [...] often do you attend chur ch or tenriism services? Never 12/16/2023 Do you belong to any clubs o r organizations such as jainism groups, unions, fraternal or athletic groups, or [...] place to sleep or slept in a halfway (including now)? No 12/16/2023 Personal Safety Answer [...] on file Legal Sex Male 8:55 AM SUPERINTENDENT PLANT Gender Identity Not on file Sexual Orientation Straight 07/03/2020 12 :48 PM CDT Obstetrics History Last Filed Vital Signs Vital Sign Reading Time Taken Comments Blood Pressure 135/74 01/05/2025 3:25 PM CDT Pulse 91 01/05/2025 3:25 PM CDT Temperature 36.6 C (97.9 F) 08/28/2024 3:58 PM SUPERINTENDENT PLANT Respiratory Rate 16 08/28/2024 3:58 PM SUPERINTENDENT PLANT Oxygen Saturation 98% 01/05/2025 3:25 PM CDT Inhaled Oxygen Concentration - - Weight 105.7 kg (233 lb) 01/05/2025 3:25 PM CDT Height 182.9 cm (6') 01/05/2025 3:25 PM CDT Body Mass Index 31.6 01/05/2025 3:25 PM CDT Plan of Treatment Health Maintenance Due Date Last Done Comments Hepatitis B Screening 1968 DTaP/Tdap/Td Vaccine (3 - Td or Tdap) 08/16/2019 08/16/2009, 10/07/2005 Depression Screening 01/08/2023 01/08/2022, 10/09/2021, 09/19/2021, Additional history exists Well Visit 65+ 01/08/2023 01/08/2022, 04/2021, 05/13/2019, Additional history exists Covid-19 Vaccine (2023- 5 season) 2024 09/09/2021, 12/30/2020, 11/28/2020 Influenza Vaccine (#1) 2025 , 10/09/2021, 07/31/2020, Additional history exists Fall Risk Assessment 08/28/2025 08/28/2024, 08/17/2022, 01/08/2022, Additional history exists Prostate Cancer Screening-PSA 04/15/2026, 04/21/2024, 05/23/2022, Additional history exists Zoster Vaccine Completed 01/22/2019, 11/10/2018 Pneumococcal vaccine 65+ Completed 05/13/2019, 05/2015 Hepatitis C Screening Completed 02/20/2021 , 11/20/2016, 11/20/2016 Abdominal Aortic Aneurysm (A AA) Screen Completed 01/24/2024, 12/20/2023, 02/17/2021, Additional history exists Colon Cancer Screening-CT Colonography Discontinued 07/01/2024, 06/23/2019, 04/23/2014, Additional history exists Colon Cancer Screening-Colonoscopy Discontinued 07/01/2024, 06/23/2019, 04/23/2014, Additional history exists Colon Cancer Screening-DNA Stool Discontinued 07/01/2024, 06/23/2019, 04/23/2014, Additional history exists Colon Cancer Screening-FIT Discontinued 07/01, 06/23/2019, 04/23/2014, Additional history exists Colon Cancer Screening-FOBT Discontinued 06/08, 06/23/2019, 04/23/2014, Additional history exists Colon Cancer Screening-Sigmoidoscopy Discontinued 07/01/2024, 06/23/2019, 04/23/2014, Additional history exists Colorectal Cancer Screening Discontinued Medical Devices Implanted Type Area Grinder Hardboard Device Identifier Shelf Expiration Date Model / Serial / Lot [employer] Hanane Angio-Seal Vip Bondek-Plus 8fr .038in 70cm Hemostatic Latex Free 056045 - [id number] - [id number] Implanted:Qty: 1 on 09/17/2022 by Gurmeet Smith MD at [facility] Collagen Right: Femoral [employer] Hanane 04/05/2023 [id number] / [id number] / [id number] Medtronic Inc Attain Performa 5.3fr 5.1fr 88cm Quadripolar Is4-Llll [id number] - [id number] - [id number] Implanted:Qty: 1 on 08/27/2024 by Satya Foster MD PhD at [facility] Lead Right: Chest Wall Medtronic Inc 07/03/2026 [id number] / [id number] / [id number] Medtronic Inc Capsurefix Novus 6.2fr 2mm 52cm Bipolar Screw In Implantable Latex Free 5076-52 - [id number] - [id number] Implanted:Qty: 1 on 08/27/2024 by Satya Foster MD PhD at [facility] Lead Right: Chest Wall Medtronic Inc 06/30/2026 5076-52 / [id number] / [id number] Medtronic Inc Capsurefix Novus 6.2fr 2mm 58cm Bipolar Screw In Implantable 5076-58 - [id number] - [id number] Implanted:Qty: 1 on 08/27/2024 by Satya Foster MD PhD at [facility] Lead Right: Chest Wall Medtronic Inc 06/09/2026 5076-58 / [id number] / [id number] Other - See Comments Other - see comments Bilateral: Knee Description:Knee replacement Other - See Comments Other - see comments N/A: Heart Description:Watchman Other - See Comments Other - see comments Bilateral: Knee Description:replacement Other - See Comments Other - see comments Right: Shoulder Description:replacement Medtronic Inc Solara Mri Surescan Bluetooth 46.5x59mm Connector Hole Radiopaque [id number] - [id number] - [id number] Implanted:Qty: 1 on 08/27/2024 by Satya Foster MD PhD at [facility] Pacemaker Right: Chest Wall Medtronic Inc 09/19/2025 [id number] / [id number] / [id number] Stent Stent N/A: Heart Description:Cardiac stents Medtronic Card Vasc Surgery 3.0 X 30mm Rafat [place] Rx Coronary Stent [id number] - [id number] - [id number] Implanted:Qty: 1 on 09/17/2022 by Gurmeet Smith MD at [facility] Stent N/A: Diagnonal Coronary Artery Medtronic Card Vasc Surgery 04/17/2025 [id number] / [id number] / [id number] Exactech [id number] Superior Posterior Augment Shoulder Right 10d 8d - [id number] - [id number] Implanted:Qty: 1 on 05/16/2021 by Arie Alvares MD at [facility] Right: Shoulder Exactech 12/27/2025 320-15-08 / [id number] / Exactech 320-06-42 Component 42mm Glenosphere Extended Locking Cap Kit - [id number] - [id number] Implanted:Qty: 1 on 05/16/2021 by Arie Alvares MD at [facility] Right: Shoulder [employer]ech 01/16/2031 320-06-42 / [id number] / Exactech 320-20-38 Equinoxe 4.5mm 38mm Kit Compression Lock Cap Reverse Shoulder - [id number] - [id number] Implanted:Qty: 1 on 05/16/2021 by Arie Alvares MD at [facility] Right: Shoulder [employer]ech 05/31/2025 320-20-38 / [id number] / Exactech 320-15-05 Equinoxe Lock Reverse Shoulder Glenosphere Screw Bone - [id number] - [id number] Implanted:Qty: 1 on 05/16/2021 by Arie Alvares MD at [facility] Right: Shoulder [employer]ech 03/27/2026 320-15-05 / [id number] / Exactech 320-20-42 Equinoxe 4.5mm 42mm Kit Compression Lock Cap Reverse Shoulder - [id number] - [id number] Implanted:Qty: 1 on 05/16/2021 by Arie Alvares MD at [facility] Right: Shoulder [employer]ech 06/29/2024 320-20-42 / [id number] / Exactech 320-20-00 Reverse Torque Define Shoulder Kit Screw - [id number] - [id number] Implanted:Qty: 1 on 05/16/2021 by Arie Alvares MD at [facility] Right: Shoulder [employer]ech 01/09/2026 320-20-00 / [id number] / Exactech 320-10-00 Equinoxe Reverse Shoulder +0mm Tray Humeral Adapter - [id number] - [id number] Implanted:Qty: 1 on 05/16/2021 by Arie Alvares MD at [facility] Right: Shoulder [employer]ech 02/09/2031 320-10-00 / [id number] / Exactech 300-01-15 Equinoxe 15mm Press Fit Shoulder Stem Humeral - [id number] - [id number] Implanted:Qty: 1 on 05/16/2021 by Arie Alvares MD at [facility] Right: Shoulder [employer]ech 07/26/2030 300-01-15 / [id number] / Exactech 320-42-03 Equinoxe 42mm Reverse Shoulder +2.5mm Liner Humeral - [id number] - [id number] Implanted:Qty: 1 on 05/16/2021 by Arie Alvares MD at [facility] Right: Shoulder [employer]ech 12/09/2022 320-42-03 / [id number] / [employer] [employer] Hanane Occluder Cardiovascular 31mm Dlv Sys Watchman Flx Strl [id number] - [id number] Implanted:Qty: 1 on 03/27/2022 by Ramon Staples MD at [facility] Left: Atrial Appendage [employer] Hanane 05/22/2024 [id number] / / [id number] Vascade Mvp 6-12fr Venous Closure 532-116v-49p - [id number] Implanted:Qty: 1 on 03/27/2022 by Leo Barney MD at [facility] Right: Femoral Vein [employer]iva [employer] Inc 10/06/2025 [id number] / / [id number] Vascade Mvp 6-12fr Venous Closure [id number] - [id number] Implanted:Qty: 1 on 03/27/2022 by Leo Barney MD at [facility] Left: Femoral Vein [employer] Inc 10/06/2025 [id number] / / [id number] Vascade Mvp 6-12fr Venous Closure [id number]-[id number] - [id number] Implanted:Qty: 1 on 03/27/2022 by Leo Barney MD at [facility] Left: Femoral Vein [employer] Inc 10/06/2025 [id number] / / [id number] Device Jannet Watchman Procedure - [id number] Implanted:Qty: 1 on 03/27/2022 by Ramon Staples MD at [facility] Left: Atrial Appendage [employer] Hanane [id number] 1-3 PC / / [...] was last reviewed 2021. Testing performed by: [address], [address] Blood 04/15/2025 2:28 PM CDT 04/15/2025 8:52 PM CDT us Frances Riojas DYNAMOMETER REPAIRER LAB BLOOD ORDERABLES Final Res ult [facility] (VANDALIA) [address] [facility] Department [place] [address] * Differential, auto (04/15/2025 2:28 PM CDT) Neutrophil abs 5.60 1.50 - 6.50 K/cumm Comment:Testing performed by : [address], [address] Imm gran abs 0.02 0.00 - 0.10 K/cumm [facility] (KORI) Comment:Testing performed by : [address], [address] Lymphocyte abs 1.14 0.80 - 3.30 K/cumm [facility] ([facility]I) Comment:Testing performed by : [address], [address] Monocyte abs 0.38 0.20 - 0.80 K/cumm [facility] ([facility]I) Comment:Testing performed by : [address], [address] Eosinophil abs 0.16 0.00 - 0.50 K/cumm [facility] ([facility]I) Comment:Testing performed by : [facility], [address] [place] [address]., [address] Basophil abs 0.04 0.00 - 0.10 K/cumm [facility] ([facility]) Comment:Testing performed by : [facility], [address] [place] [address]., [address] Neutrophil pct 76.3 % [facility] ([facility]I) Comment: Interpretive Data Percent cell count reference ranges are not reported, since discordance with absolute values may lead to misinterpretation of CBC data. Current Interpretive Data was last revised on 2018. Testing performed by: [address] [address] Imm gran pct 0.3 % [facility] ([facility]) Comment: Interpretive Data Percent cell count reference ranges are not reported, since discordance with absolute values may lead to misinterpretation of CBC data. Current Interpretive Data was last revised on 2018. Testing performed by: [address] [address] Lymphocyte pct 15.5 % [facility] ([facility]) Comment: Interpretive Data Percent cell count reference ranges are not reported, since discordance with absolute values may lead to misinterpretation of CBC data. Current Interpretive Data was last revised on 2018. Testing performed by: [facility], [address] [place] [address]., [address] Monocyte pct 5.2 % [facility] ([facility]I) Comment: Interpretive Data Percent cell count reference ranges are not reported, since discordance with absolute values may lead to misinterpretation of CBC data. Current Interpretive Data was last revised on 2018. Testing performed by: [address] [address] Eosinophil pct 2.2 % [facility] ([facility]) Comment: Interpretive Data Percent cell count reference ranges are not reported, since discordance with absolute values may lead to misinterpretation of CBC data. Current Interpretive Data was last revised on 2018. Testing performed by: [address] [address] Basophil pct 0.5 % [facility] (KORI) Comment: Interpretive Data Percent cell count reference ranges are not reported, since discordance with absolute values may lead to misinterpretation of CBC data. Current Interpretive Data was last revised on 2018. Testing performed by: [address] [address] Blood 04/15/2025 2:28 PM CDT 04/15/2025 2:29 PM CDT us Frances Riojas DYNAMOMETER REPAIRER LAB BLOOD ORDERABLES Final Res ult ANU NOBLE (VANDALIA) 1 [facility] Department [place] [address] * (ABNORMAL) Urinalysis reflex to microscopic and culture Urine, clean voided (04/15/2025 2:28 PM CDT) Color, ur Yellow Yellow Comment:Testing performed by : [address] [address] Clarity, ur Clear Clear ANU Edwards (KORI) Comment:Testing performed by : [address] [address] Specific gravity, ur 1.028 1.003 - 1.030 ANU NOBLE (KORI) Comment:Testing performed by : [address] [address] pH, urine 5.5 ANU NOBLE (KORI) Comment: Interpretive Data U rine pH is affected by diet, medications, systemic acid-base disturbances, and renal tubular function. pH may affect urinary stone formation. For example, urine pH below 6.0 may help reduce the tendency for calcium phosphate stones and pH greater than 6.0 may reduce the tendency for uric acid stone formation. Source: [facility] Other Machine Current Interpretive Data was last revised on 2017 Testing performed by: [address] [address] Protein, ur ql Trace Negative [facility] (KORI) Comment:Testing performed by : [address] [address] Glucose, ur ql Negative Negative [facility] (KORI) Comment:Testing performed by : [facility], [address] [place] [address]., [address] Ketones, ur Negative Negative CERNER A (KORI) Comment:Testing performed by : [address], [address] Bilirubin, ur Negative Negative ANU NOBLE (KORI) Comment:Testing performed by : [address], [address] Blood, ur Negative Negative ANU NOBLE (KORI) Comment:Testing performed by : [address], [address] Urobilinogen, ur 2.0(A) <2.0 mg/dL [facility] (KORI) Comment:Testing performed by : [address], [address] Nitrite, ur Negative Negative ANU A (KORI) Comment:Testing performed by : [address], [address] Leukocyte esterase, ur Negative Negative ANU NOBLE (KORI) Comment:Testing performed by : [address], [address] UA reflex comment Reflex conditions for microscopic UA and culture not met. ANU NOBLE (KORI) Comment:Testing performed by : [address], [address] Urine, clean voided 04/15/2025 2:28 PM CDT 04/15/2025 2:30 PM CDT Frances Riojas NP LAB MICROBIOLOGY - GENERAL ORD ERABLES Final Result ANU NOBLE (KORI) 1 [facility] Department [place] [address] * (ABNORMAL) CBC with auto differential (04/15/2025 2:28 PM CDT) WBC 7.34 3.80 - 9.90 K/cumm Comment:Testing performed by : [address], [address] Hgb 13.2 13.0 - 17.5 g/dL ANU NOBLE (KORI) Comment:Testing performed by : [address], [address] Hct 41.3 38.9 - 50.3 % [facility] (KORI) Comment:Testing performed by : [address], [address] Plt 248 150 - 400 K/cumm [facility] (KORI) Comment:Testing performed by : [address], [address] MPV 9.6 9.1 - 12.3 fL [facility] (KORI) Comment:Testing performed by : [address], [address] RBC 3.98(L) 4.30 - 5.80 M/cumm [facility] (KORI) Comment:Testing performed by : [address], [address] MCV 103.8(H) 81.3 - 96.4 fL [facility] (KORI) Comment:Testing performed by : [address], [address] MCH 33.2 27.1 - 33.3 pg [facility] (KORI) Comment:Testing performed by : [address], [address] MCHC 32.0(L) 32.3 - 35.7 g/dL [facility] (KORI) Comment:Testing performed by : [address], [address] RDW CV 14.6 11.1 - 14.9 % [facility] (KORI) Comment:Testing performed by : [address], [address] RDW SD 56.4(H) 35.7 - 48.1 fL [facility] (KORI) Comment:Testing performed by : [address], [address] NRBC abs 0.00 0.00 - 0.01 K/cumm [facility] (KORI) Comment:Testing performed by : [address], [address] Blood 04/15/2025 2:28 PM CDT 04/15/2025 2:29 PM CDT Frances Riojas DYNAMOMETER REPAIRER LAB BLOOD ORDERABLES Final Res ult Performing Organization Address City/[facility]/ZIP Co de Phone Number ANU NOBLE (KORI) 1 [facility] [place] [address] * (ABNORMAL) Vitamin D 25 hydroxy (04/15/2025 2:28 PM CDT) Vitamin D 25-OH 24(L) 30 - 80 ng/mL Comment:Testing performed by : [facility], [address] [place] [address]., [address] Blood 04/15/2025 2:28 PM CDT 04/15/2025 2:28 PM CDT Frances Riojas DYNAMOMETER REPAIRER LAB BLOOD ORDERABLES Final Res ult Performing Organization Address [facility] Co de Phone Number ANU NOBLE (VANDALIA) 1 [place] [address] * TSH (04/15/2025 2:28 PM CDT) Pathologist [facility] Thyroid Stimulating Hormone 3.39 0.30 - 4.20 mcIUnit/mL Comment:Testing performed by : [facility], [address] [place] [address]., [address] Blood 04/15/2025 2:28 PM CDT 04/15/2025 2:29 PM CDT Frances Riojas DYNAMOMETER REPAIRER LAB BLOOD ORDERABLES Final Res ult Performing Organization Address [facility]/ZIP Co de Phone Number ANU NOBLE (VANDALIA) 1 [place] [address] * T4, free (04/15/2025 2:28 PM CDT) Free T4 1.10 0.90 - 1.70 ng/dL Comment:Testing performed by : [facility], [address] [place] [address], [place]., [address] Blood 04/15/2025 2:28 PM CDT 04/15/2025 2:29 PM CDT Frances Riojas DYNAMOMETER REPAIRER LAB BLOOD ORDERABLES Final Res ult ANU NOBLE (VANDALIA) 1 [place] [address] * Total testosterone (04/15/2025 2:28 PM CDT) Testosterone 247 193 - 740 ng/dL Comment:Testing performed by : [facility], [address] [place] [address]., [address] Blood 04/15/2025 2:28 PM CDT 04/15/2025 2:29 PM CDT Frances Riojas DYNAMOMETER REPAIRER LAB BLOOD ORDERABLES Final Res ult Performing Organization Address [facility] Co de Phone Number ANU NOBLE (VANDALIA) 1 [place] [address] * PSA diagnostic (04/15/2025 2:28 PM CDT) [...] data last revised 22. Testing performed by: [facility], [address] [place] [address]., [address] Blood 04/15/2025 2:28 PM CDT 04/15/2025 2:29 PM CDT Frances Riojas DYNAMOMETER REPAIRER LAB BLOOD ORDERABLES Final Res ult Performing Organization Address City/[facility] Co de Phone Number [facility] (VANDALIA) 1 [facility] [place] [address] * Cholesterol, LDL, direct (04/15/2025 2:28 PM [...] last revised on 2018. Testing performed by: [facility], [address] [place] [address], [address] Blood 04/15/2025 2:28 PM CDT 04/15/2025 2:29 PM CDT Frances Riojas DYNAMOMETER REPAIRER LAB BLOOD ORDERABLES Final Res ult Performing Organization Address [facility] Co de Phone Number [facility]U [facility] KORI) 1 [facility] Department [place] [address] * (ABNORMAL) Lipid panel (04/15/2025 2:28 PM [...] last revised on 2018. Testing performed by: [facility], [address] [place] [address]., [address] Triglycerides 170(H) <=149 mg/dL ANU NOBLE (KORI) [...] last revised on 2018. Testing performed by: [facility], [address] [place] [address]., [address] HDL 42 >=40 mg/dL ANU NOBLE (KORI) [...] last revised on 2018. Testing performed by: [facility], [address] [place] [address]., [address] LDL, calculated 100 <=129 mg/dL ANU NOBLE [...] last revised on 2024. Testing performed by: [address] [address] Non-HDL Cholesterol 130 mg/dL ANU NOBLE (KORI) [...] last revised on 2018. Testing performed by: [facility], [address] [place] [address]., [address] Chol/HDL ratio 4 MARSHAL NOBLE (KORI) Comment:Testing performed by : [address] [address] Blood 04/15/2025 2:28 PM CDT 04/15/2025 2:29 PM CDT us Frances Riojas DYNAMOMETER REPAIRER LAB BLOOD ORDERABLES Final Res ult ANU NOBLE (KORI) 1 [facility] Department [place] [address] * (ABNORMAL) Comprehensive metabolic panel (04/15/2025 2:28 PM CDT) Sodium 140 135 - 145 mmol/L Comment:Testing performed by : [address] [address] Potassium, pl 3.8 3.3 - 4.9 mmol/L [facility] (KORI) Comment:Testing performed by : [facility], [address] [place] [address]., [address] Chloride 106 97 - 110 mmol/L [facility] (KORI) Comment:Testing performed by : [facility], [address] [place] [address]., [address] CO2 19(L) 22 - 32 mmol/L [facility] (KORI) Comment:Testing performed by : [address] [address] Anion gap 15 2 - 15 mmol/L [facility] (KORI) Comment:Testing performed by : [facility], [address] [place] [address]., [address] BUN 18 6 - 25 mg/dL [facility] (KORI) Comment:Testing performed by : [facility], [address] [place] [address]., [address] Creatinine 1.11 0.80 - 1.30 mg/dL [facility] (KORI) Comment:Testing performed by : [address], [address] Glucose 156 70 - 199 mg/dL CERNER [...] classification and Diagnosis of Diabetes Diabetes Care 202; 46: S19-S40. Current interpretive data was last revised 2022. Testing performed by: [facility], [address] [place] [address]., [address] Calcium 9.3 8.5 - 10.3 mg/dL [facility] (KORI) Comment:Testing performed by : [address] [address] Bilirubin, total 0.4 0.1 - 1.2 mg/dL [facility] (KORI) Comment:Testing performed by : [address] [address] Protein, pl 6.8 6.5 - 8.5 g/dL [facility] (KORI) Comment:Testing performed by : [facility], [address] [place] [address]., [address] Albumin 4.1 3.5 - 5.0 g/dL [facility] (KORI) Comment:Testing performed by : [facility], [address] [place] [address]., [address] Alk phos 93 40 - 130 Units/L [facility] (KORI) Comment:Testing performed by : [facility], [address] [place] [address], [address] ALT 15 7 - 55 Units/L [facility] (KORI) Comment:Testing performed by : [facility], [address] [place] [address], [address] AST 32 10 - 50 Units/L [facility] (KORI) Comment:Testing performed by : [facility], [address] [place] [address]., [address] Blood 04/15/2025 2:28 PM CDT 04/15/2025 2:29 PM CDT us Frances Riojas DYNAMOMETER REPAIRER LAB BLOOD ORDERABLES Final Res ult ANU NOBLE (VANDALIA) 1 [facility] Department [place] [address] * DEVICE CHECK - REMOTE (04/02/2025 1:25 PM CDT) Anatomical Region Laterality Modality Other 04/02/2025 1:25 PM CDT Narrative 04/03/2025 1:04 PM CDT Interpretation Summary: Battery and Leads (BL) Normal parameters noted on battery and lead(s) --- 6.7 yrs remaining longevity (implanted 2023). Lead impedance and RV/LV threshold trends stable and appropriate. No short V-V intervals. Presenting Rhythm (MO) BiVentricular Pacing (BiVP) --- BVP 86 bpm. [...] appropriate. No short V-V intervals. Presenting Rhythm (MO) BiVentricular Pacing (BiVP) --- BVP 86 bpm. [...] be apprised of findings Leo Barney MD [facility] Final Result * Surgical pathology (03/30/2025 12:00 AM CDT) Skin, excision 03/30/2025 03/31/2025 7:24 AM CDT Narrative 04/01/2025 2:18 PM CDT [facility] results best viewed via link to PDF [facility] [address] [place] [address], [address], [place] [address] [email or web address] Note to Patients: This report may contain [...] 04/01/2025 Submitting Physician Information: Sho Weber M.D. [facility], [facility], [address] [place] [address], DERMATOPATHOLOGY REPORT RESULTS DIAGNOSIS: A. SKIN, LEFT [...] of formalin are 5 pieces of pale rhodse, finely scaling, hair-bearing skin and adipose tissue [...] different than those at time of procedure. [facility]/mxf ICD-9 ZSD.1387 Clerical Data A; 33786 B; 46129 C; 04151 D; 25266 E; 89310 The characteristics of special, immunohistochemical, and immunofluorescence stains and in-situ hybridization tests performed by the [facility] were deemed acceptable in ongoing director software quality assurance measures and in compliance with regulations drawn from the Clinical Laboratory Improvement Act en0512 (CLIA '88). Control reactions for all stains performed were deemed adequate and appropriate by a pathologist prior to evaluation of patient tissue. Some diagnoses were rendered with the assistance of laboratory-developed tests utilizing analyte-specific reagents; the performance characteristic of these tests were determined by [facility] and are not cleared or approved by the [place] Food an Drug administration. Laboratory developed test may only be performed in a facility that is certified by the [facility] as a high-complexity laboratory under CLIA '88. These tests are used for clinical purposes and are not investigational. Sho Weber MD LAB PATHOLOGY ORDER MARIA LUISA Final Result * Colonoscopy (07/01/2024 11:20 AM CDT) Anatomical Region Laterality Modality Other Narrative Procedure Note Carrie Woodall MD - 07/01/2024 11:20 AM CDT [facility] Patient Name: Daphney Wyatt Procedure Date: 07/01/2024 11:20 AM Date of : 1950 Admit Type: Outpatient Age: 73 Gender: Male Attending MD: Carrie Woodall M.D. Room: [facility] ENDOSCOPY ROOM 1 Note Status: Finalized Patient [...] under direct vision. The Pediatric Colonoscope PCF-H190L [id number] was introducedthrough the anus and advanced to [...] 11:20 AM Procedure Code(s): --- Professional --- 67693, Colonoscopy, flexible; with biopsy, single or multiple Diagnosis Code(s): --- Professional --- Z86.010, Personal history of colonic polyps K64.8, Other hemorrhoids D12.5, Benign neoplasm of sigmoid colon K57.30, Diverticulosis of large intestine without perforation orabscess without bleeding CPT copyright 2020 [employer]. All rights reserved. The codes documented in this report are preliminary and upon photonics engineering technician reviewmay be revised to meet current compliance requirements. Recognized by the [employer] for promoting quality [...] Sergio Nicholas M.D. CH: TERESA Report ID: [id number] Reading Location: [place] [address] Procedure Note Sergio Nicholas Jr., MD - [...] Electronically signed by Sergio Nicholas M.D. CH: Report ID: [id number] Reading Location: [place] [address] Daphney Grossman MD IMG CT PROCEDURES Final Res ult * Hepatitis panel, acute (02/20/2021 3:59 PM CDT) Hep A IgM Nonreactive Nonreactive [facility] (KORI) Comment: Interpretive Data: If Hep A IgM Ab is reported as Equivocal, a new sample should be drawn in two weeks for testing. Current interpretive data was last revised on 19. Testing performed by: [facility], [address] [place] [address]., [address] Hep B core IgM Nonreactive Nonreactive [facility] (KORI) Comment: Interpretive Data If HepB Core IgM Ab is reported as Equivocal, a new sample should be drawn in two weeks for testing. Current interpretive data was last revised on 19. Testing performed by: [facility], [address] [place] [address]., [address] Hep C Ab Nonreactive Nonreactive [facility] [...] last revised on 2019. Testing performed by: [facility], [address] [place] [address]., [address] HepBsAg Nonreactive Nonreactive ANU NOBLE (KORI) Comment:Testing performed by : [facility], [address] [place] [address], [place]., [address] Blood specimen (specimen) 02/20/2021 3:59 PM CDT 02/21/2021 9:59 AM CDT Narrative ANU NOBLE (KORI) - 02/21/2021 11:08 AM CDT Non fasting Jesús Grimaldo MD LAB MICROBIOLOGY - GENERAL ORD ERABLES Final Result ANU NOBLE (KORI) 1 [facility] Department [place] [address] from Last 3 Months or Most Recently Relevant to Health Maintenance Insurance [facility] Address: [address] [address] [place] [address] [place] [employer] Advance Directives For more information, please contact: [phone] * Full Code (Latest Code Status on [...] 8:03 PM 12/16/2023 4:50 PM Care Teams Food Tester Relationship Specialty Start Date End Date Jeremías Hopkins MD [address] [facility] [place] [address] PCP - General Internal Medicine 03/23/22 Italia Mclaughlin MD [address] [facility] [address] [address] Consulting Physician Interventional Cardiology 07/02/18 Bubba Hernandez NP [address] [place] [address] [address] [place] [address] Nurse Practitioner Nurse Practitioner 05/17/21
--- OUTSIDE RECORDS SUMMARY | 2025-04-26 12:06 | XMS_ITS | Continuity of Care Document ---
Author Organization [facility] Address [address] [place] [address] [place] [address] Phone Care Team Providers Care Machine Heddle Cleaner Name Role Phone Bethel Arreaga MD Unavailable Unavailable Allergies, Adverse Reactions, Alerts Substance Reaction Status Criticality iodine Active No Information Medications Medication Instructions Dosage Effective Dates (start - stop) Status Comments Paxil 40 mg tablet - Active Crestor 20 mg tablet - Active Flomax 0.4 mg capsule - Active hydrocodone 5 mg-acetaminophen 500 mg capsule - Active Procedures Procedure Date Eye Exam, New Patient Advance Directives Directive Yes / No Effective Date File Name Resuscitation Not Answered N/A N/A Life Support Not Answered N/A N/A Intubation Not Answered N/A N/A Antibiotics Not Answered N/A N/A IV Fluid Support Not Answered N/A N/A Tube Feed Not Answered N/A N/A Other Directive N/A N/A WARNING:The information contained in this section is historical and is provided for information only and does not constitute a legal document or any assurance that the information is still accurate. Please verify the information with the booth of the legal document before using it for clinical purposes. Encounters Encounter Description Practice Location Reason(s) For Visit Diagnoses Date Provider Providers Copied on Encounter [facility], [address] [place] [address] [address], [place], [place], [id number], [place] tel:[phone] [facility] [place] Professional VITREOUS OPACITIES NECSENILE NUCLEAR CATARACTANATOM ICAL NARROW ANGLE [address] [facility], [address], [place], [place], [id number], . tel:[phone] Referring Provider: Behtel Edwards, [address] [facility] [address], [place], [address] . tel:[phone] Family History Family Member Type Diagnosis Age At Onset No Information Payers Payer name Insurance type Covered alliance party ID Authoriza tion(s) Medicare [facility] [id number] [place] [id number] Social History Type Description Quantity Date Captured Comments Alcohol Use Details No Caffeine Use Details 4 cups per day Tobacco Use Status No Information Smoking Status Never smoker Non-Smoking Tobacco Use Details : No Details Available : No Details Available Sex Male Chief Complaint And Reason For Visit No Information Reason For Referral Reason For Referral No Information History Of Present Illness Encounter Date Complaint History Of Prese nt Illness No Information Functional Status Date Functional Assessmen t No Information Instructions Date Instruction Additional Infor mation - prn Related to VITRE OUS OPACITIES NEC vit detachment - war jeaneth symptoms rt/detach Related to VITREOUS OPACITIES NEC nsc - observation Ed ucational materials provided to patient. Educational materials provided to patient. Related to SENILE NUCLEAR CATARACT narrow angles - Educ ational materials provided to patient. Related to ANATOMICAL NARROW ANGLE Assessments Type Assessment Date No Information Patient Care Teams Name Effective Dates (start - stop) Status Members No Information
[2025-04-26 12:08] VITALS: BP 131/79; PULSE 87; RESP 20; TEMP 36.6; O2SAT 97
--- OUTSIDE RECORDS SUMMARY | 2025-04-26 12:08 | XMS_ITS | Continuity of Care Document ---
Author Organization [facility] Address [address] [place] [address] [place] [address] Phone Care Team Providers Care Bolt Threader Name Role Phone Bethel Arreaga MD Unavailable [...] Diagnoses Date Provider Providers Copied on Encounter [facility], [address] [place] [address] [address], [place], [place], [id number], [place] tel:[phone] [facility] [place] Professional VITREOUS OPACITIES NECSENILE NUCLEAR CATARACTANATOM ICAL NARROW ANGLE [address]. [address] [facility], [address], [place], [place], [address], . tel:[phone] Referring Provider: Bethel Edwards, [address] [facility] [address], [place], [address] . tel:[phone] Family History Family Member Type Diagnosis Age At Onset No Information Payers Payer name Insurance type Covered republican ID Authoriza tion(s) Medicare [facility] [id number] BCBS [place] [id number] Social History Type Description Quantity Date Captured [...]
--- NOTE | 2025-04-26 12:25 | ED.URI ---
HPI - URI/Sore Throat General Chief Complaint: Upper Respiratory Infection Stated Complaint: URI Time Seen by Provider: 04/26/25 12:25 Source: patient, RN notes reviewed and old records reviewed Mode of arrival: ambulatory Limitations: no limitations History of Present Illness HPI Narrative: Patient sitting in exam room. Patient is nontoxic, vitals stable. Patient presents with with a productive purulent cough x6 days. Patient reports shortness of breath, increased fatigue. Recently on Keflex for an ear/skin infection. Has been taking Delsym. Patient is a previous smoker. Denies any chest pain, fevers. Related Data Home Medications ?Medication ?Instructions ?Recorded ?Confirmed ?Last Taken ?Type amiodarone 400 mg tablet 200 mg PO DAILY 10/14/19 07/10/24 12/19/23 History aspirin 81 mg chewable tablet 81 mg PO DAILY 10/14/19 07/10/24 12/19/23 History cyanocobalamin (vitamin B-12) 500 500 mcg PO QMWF 10/14/19 07/10/24 12/18/23 History mcg tablet ferrous sulfate 325 mg (65 mg 325 mg PO DAILY 10/14/19 07/10/24 12/18/23 History iron) tablet,delayed release finasteride 5 mg tablet 5 mg PO DAILY 10/14/19 07/10/24 12/19/23 History hydrocodone 10 mg-acetaminophen 1 tablet PO Q6-8H PRN Pain 10/14/19 07/10/24 12/18/23 History 325 mg tablet ([place]) paroxetine HCl 40 mg tablet (Paxil) 40 mg PO QAM 10/14/19 07/10/24 12/19/23 History rosuvastatin 40 mg tablet (Crestor) 40 mg PO 2XW 10/14/19 07/10/24 12/16/23 History midodrine 10 mg tablet 10 mg PO TID PRN low blood pressure 03/17/20 07/10/24 12/18/23 History furosemide 20 mg tablet (Lasix) 20 mg PO DAILY 06/22/21 07/10/24 12/18/23 History ondansetron HCl 4 mg tablet 4 mg PO Q8H PRN Nausea 06/22/21 07/10/24 06/22/21 History (Zofran) allopurinol 100 mg tablet 100 mg PO DAILY 12/18/23 07/10/24 12/19/23 History calcium 315 mg (as 2 tablet PO BID 12/18/23 07/10/24 12/19/23 History citrate)-vitamin D3 5 mcg (200 unit) tablet (Calcium Citrate + D) ezetimibe 10 mg tablet 10 mg PO DAILY 12/18/23 07/10/24 12/19/23 History levothyroxine 75 mcg tablet 75 mcg PO DAILY 12/18/23 07/10/24 12/19/23 History metoprolol succinate 100 mg 100 mg PO DAILY 12/18/23 07/10/24 12/19/23 History tablet,extended release 24 hr multivitamin-iron (hematinic) 1 tablet PO DAILY 12/18/23 07/10/24 12/19/23 History silodosin 8 mg capsule 8 mg PO DAILY 12/18/23 07/10/24 12/19/23 History famotidine 40 mg tablet 40 mg DIRECTED 07/10/24 07/10/24 Unknown History Allergies Allergy/AdvReac Type Severity Reaction Status Date / Time povidone-iodine (From Allergy Blister Verified 12/19/23 09:04 Betadine) levofloxacin AdvReac Other Verified 12/19/23 09:04 Review of Systems Review of Systems: All systems reviewed & are unremarkable except as noted in HPI and below Constitutional: Constitutional: Reports no additional constitutional complaints ENT: Reports system reviewed and no additional complaints, except as documented Cardiovascular: Cardiovascular: Reports no additional cardiovascular complaints, Denies chest pain and Denies dyspnea Respiratory: Respiratory: Reports as per HPI, Denies chest congestion, Reports cough and Reports dyspnea Musculoskeletal: Musculoskeletal: Reports no additional musculoskeletal complaints Integumentary/Breasts: Skin/Breast: Reports system reviewed and no additional complaints, except as docu PMFSH Past Medical History Medical History C. difficile colitis Atrial fibrillation Surgical History Surgical History Status post ablation of atrial fibrillation Social History Social History Social History: No smoking or drinking alcohol Smoking packs per day: 2 Smoking cigarettes per day: 40.0 Years smoked: 33 Smoking pack-years: 66.00 Smoking status: Former smoker Tobacco type: cigarettes Second hand tobacco smoke exposure: Yes Smoking end date: 10/07/95 Alcohol use details: 2 bottles wine/month or occ beer Substance use: never Living arrangements: with family Gender identity (if verbalized by the patient): Male Sexual Orientation (if Verbalized by the Patient): Straight or Heterosexual Spiritual care concerns: No Comments At the time of my signature, I reviewed and agree with the nursing past medical, surgical, social, and family history. There is no relevant family history pertinent to the patient complaint. Exam Const: General: cooperative, no acute distress, well developed, alert, ill appearing chronically and well nourished Nutritional Appearance: well nourished Orientation/consciousness: patient oriented x3 Limitations: no limitations HENMT: Head: normal to inspection Ears: hearing grossly normal bilaterally and external ears normal Throat: posterior oropharynx normal, uvula midline and no uvular edema Eyes: General: appearance normal, both eyes and all related structures Alignment and Position: alignment normal Neck: Neck: normal visual inspection, full ROM, no lymphadenopathy and no meningeal signs Chest: Chest palpation & inspection: normal inspection of the chest Resp: Effort & Inspection: normal respiratory effort and able to speak in complete sentences Auscultation: no crackles, no rales, no rhonchi, no wheezes and diminished lung sounds bilateral in the lower lung [place] Cardio: Rate: regular rate Skin: General skin exam: normal color and no rashes or lesions noted Neuro: General: patient oriented x3, gait normal, moves all extremities and no meningeal signs Cognition (Neuro): normal cognition Speech: normal speech Gait exam (Neuro): Normal gait present Extrem: General: normal to inspection, full ROM, capillary refill normal and normal gait Psych: Appearance: grossly normal and well kempt Mental Status: mental status grossly normal Speech and movement: Normal speech and movement present and Clear speech present Affect: normal affect Attitude: cooperative Course Course Level of Care: Express Care Visit Vital Signs Vital signs: Vital Signs Temperature 97.8 F 04/26/25 12:08 Pulse Rate 87 04/26/25 12:08 Respiratory Rate 20 04/26/25 12:08 Blood Pressure 131/79 04/26/25 12:08 Pulse Oximetry 97 04/26/25 12:08 Oxygen Delivery Room Air 04/26/25 12:08 Temperature 97.8 F 04/26/25 12:08 Pulse Rate 87 04/26/25 12:08 Respiratory Rate 20 04/26/25 12:08 Blood Pressure 131/79 04/26/25 12:08 Pulse Oximetry 97 04/26/25 12:08 Oxygen Delivery Room Air 04/26/25 12:08 Reviewed MDM - URI/Sore Throat MDM Narrative Medical decision making narrative: Patient sitting in exam room. Patient appears uncomfortable, chronically ill. Patient presents with productive cough. X-ray concerning for mass, will cover with an antibiotic, discussed patient's x-ray. Discussed either following up with primary care provider or going to the emergency room for evaluation. Patient states that he has an appointment on Saturday with primary care provider and will discussed doing a CT on that day, declining transfer to the ER at this time. Discharge instructions reviewed with patient, as well as provided in writing per nursing staff. The instructions also include specific and strict return/GO TO THE ER as well as f/u information. All questions have been answered, and the patient deny any further questions with discharge and discharge plan. Some parts of this dictation were generated by voice recognition software and may contain typographical and/or grammatical inaccuracies. Differential Diagnosis Differential diagnosis: Likely upper respiratory infection, otitis media, sinusitis, viral infection, bronchitis, influenza and pharyngitis Critical Care Time Critical Care Time Critical Care Time: No Discharge Plan Discharge Clinical Impression: Upper respiratory infection, Bronchitis, Lung density on x-ray Patient Disposition: Home Condition: Stable Instructions: Antibiotic Form, Acute Bronchitis (ED) Additional Instructions: Please bring a copy of your x-ray to your primary as you are scheduled on Saturday For any new or worsening symptoms please proceed to the nearest emergency room. Patient Language: [place] Citizen Prescriptions: New doxycycline monohydrate 100 mg tablet 100 mg PO BID Qty: 14 0RF No Action famotidine 40 mg tablet 40 mg DIRECTED midodrine 10 mg Tablet 10 mg PO TID PRN (Reason: low blood pressure) ondansetron HCl [Zofran] 4 mg Tablet 4 mg PO Q8H PRN (Reason: Nausea) furosemide [Lasix] 20 mg Tablet 20 mg PO DAILY metoprolol succinate 100 mg tablet extended release 24 hr 100 mg PO DAILY allopurinol 100 mg tablet 100 mg PO DAILY levothyroxine 75 mcg tablet 75 mcg PO DAILY multivitamin-iron (hematinic) Tablet 1 tablet PO DAILY ezetimibe 10 mg tablet 10 mg PO DAILY calcium citrate-vitamin D3 [Calcium Citrate + D] 315 mg-5 mcg (200 unit) Tablet 2 tablet PO BID silodosin 8 mg capsule 8 mg PO DAILY hydrocodone-acetaminophen [[place]] 10-325 mg Tablet 1 tablet PO Q6-8H PRN (Reason: Pain) cyanocobalamin (vitamin B-12) 500 mcg Tablet 500 mcg PO QMWF Rx Instructions: sublingual M,W,F amiodarone 400 mg Tablet 200 mg PO DAILY aspirin 81 mg Tablet,Chewable 81 mg PO DAILY ferrous sulfate 325 mg (65 mg iron) Tablet,Delayed Release (Dr/Ec) 325 mg PO DAILY finasteride 5 mg Tablet 5 mg PO DAILY paroxetine HCl [Paxil] 40 mg Tablet 40 mg PO QAM rosuvastatin [Crestor] 40 mg Tablet 40 mg PO 2XW Rx Instructions: M,F Follow-up/Referrals: Sandeep,Toñito Goodwin MD [Primary Care Provider] - 2 Days ([facility] follow [facility] ) Time of Disposition: 13:00
== END 2025-04-26 13:04 | disposition home or self-care (01) ==
PROVIDERS: Emergency Provider Nurse Practitioner; PCP Internal Medicine
DX: J06.9 Acute upper respiratory infection, unspecified (principal); J40 Bronchitis, not specified as acute or chronic; J98.4 Other disorders of lung; I48.91 Unspecified atrial fibrillation; Z87.891 Personal history of nicotine dependence
CPT/HCPCS: 71046; 99213; G0463